=== PATIENT | female | born 1955 | race Caucasian/White ===

== ENCOUNTER 2017-12-16 10:46 | Inpatient (IN) | payer BC ==
[~2017-12-16] VITALS: Ht 157.5 cm; Wt 47.6 kg
[~2017-12-16 10:46] MED LIST: AZIT250T PO; PROM25TA14 PO
[2017-12-16] MEDS ORDERED: IBUPROFEN TABLET 200 MG TAB PO PRN (15:15)
[2017-12-16] MEDS ORDERED: ONDANSETRON 4 MG (ZOFRAN) ORAL DISSOLVE TAB PO PRN (15:15)
--- OUTSIDE RECORDS SUMMARY | 2017-12-16 17:24 | XMS REPORT | Continuity of Care Document ---
Author Author [facility] Organization [facility] Address Unknown Phone Unavailable Allergies Active Description Code Type Severity Reaction Onset Reported/Identified Relationship to Patient Clinical Status Yes Penicillins 476 Drug Allergy Unknown N/A Yes Sulfa (Sulfonamide Antibiotics) 491 Drug Allergy Unknown N/A Yes clindamycin [id number] Drug Allergy Unknown N/A 09/02/2015 Yes Penicillins [id number] Drug Allergy Unknown N/A 09/02/2015 Yes Sulfa (Sulfonamide Antibiotics) [id number] Drug Allergy Unknown N/A 2014 Yes Penicillins Miscellaneous Allergy N/A hives, itching 06/24/2017 Yes Sulfa Antibiotics Miscellaneous Allergy N/A hives, itching 06/24/2017 Medications Medication Packaging Start Date Stop Date Route Dosage Sig VERSED 0.5&Vial 06/28/2017 06/28/2017 Intravenous 1&mg PRN & ANCEF 2&Vial 06/28/2017 07/05/2017 Intravenous 2&gm PRN& LR 1000 ML 1&Bag 06/28/2017 06/28/2017 Intravenous 1000&mL C&0630 SUBLIMAZE 0.5&Ampule 06/28/2017 06/28/2017 Intravenous 50&mcg PRN& ZOFRAN 1&Vial 06/28/2017 07/28/2017 Intravenous 4&mg PRN& TORADOL 1&Vial 06/28/2017 07/03/2017 Intravenous 30&mg PRN & ANCEF 1&Vial 06/28/2017 06/29/2017 Intravenous 1&gm TID& 0800,1600,0000 NORMAL SALINE 0.3&Syringe 201607/28/2017 Intravenous 3&mL BID&0900,2100 NORMAL SALINE 0.6&Syringe 201607/28/2017 Intravenous 3&mL PRN& MILK OF MAGNESIA 1&Suspension 06/2807/28/2017 Oral 30&mL PRN& MORPHINE 1&Syringe 06/28/2017 07/05/2017 Intravenous 4&mg PRN& LR 1000 ML 1&Bag 06/28/2017 07/28/2017 Intravenous 1000&mL C&0846 DULCOLAX 1&Suppository 06/28/2017 07/28/2017 Rectal 10&mg PRN& ZOFRAN 1&Tablet 06/28/2017 07/28/2017 Oral 4&mg PRN& REGLAN 1&Tablet 06/28/2017 07/28/2017 Oral 10&mg PRN& ROBAXIN 1&Tablet 06/28/2017 07/28/2017 Oral 750&mg PRN& NORCO; LORTAB 2&Tablet 06/28/2017 07/05/2017 Oral 2&Tablet(s) PRN& COLACE 1&Capsule 06/28/2017 07/28/2017 Oral 100&mg BID& 0900,2100 BENADRYL 1&Capsule 06/28/2017 07/28/2017 Oral 25&mg PRN& BENADRYL 0.5&Vial 06/28/2017 07/28/2017 Intravenous 25&mg PRN& DULCOLAX 1&Tablet 06/28/2017 07/28/2017 Oral 5&mg PRN& TYLENOL; APAP 2&Tablet 06/28/2017 07/28/2017 Oral 650&mg PRN& REGLAN 1&Vial 06/28/2017 07/28/2017 Intravenous 10&mg PRN & ZOFRAN 1&Vial 06/28/2017 06/28/2017 Intravenous 4&mg PRN& DILAUDID 0.25&Vial 06/28/2017 06/28/2017 Intravenous 0.5&mg PRN& DOCUSATE SODIUM 11/28/2017 11/28/2017 BIDPRN ACETAMINOPHEN 11/28/2017 11/28/2017 Q4HPRN ACETAMINOPHEN 11/28/2017 11/28/2017 Q4HPRN ALUM-MAG HYDROXIDE-SIMETH 201711/28/2017 Q4HPRN MAGNESIUM HYDROXIDE 11/28/2017 11/28/2017 HSPRN Problems Date Dx Coded Attending Type Code Diagnosis Diagnosed By 09/02/2015 SAWYER HUDDLESTON APRN Ot K04.7 09/02/2015 SAWYER HUDDLESTON APRN Ot R11.2 09/02/2015 SAWYER HUDDLESTON APRN Ot R51 06/28/2017 Ethan JONES FLORENCIO Granados F17.200 Nicotine dependence, unspecified, uncomplicated 06/28/2017 Ethan JONES FLORENCIO Granados M19.90 Unspecified osteoarthritis, unspecified site 06/28/2017 Ethan JONES FLORENCIO Granados M48.06 Spinal stenosis, lumbar region 06/28/2017 Ethan JONES FLORENCIO Granados M51.26 Other intervertebral disc displacement, lumbar region 06/28/2017 Ethan JONES FLORENCIO Granados 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 Results Test Result Range CBC NO DIFF (HEMOGRAM) - 11/28/17 11:38 WBC - WHITE CELL COUNT 9.4 X10(3) 4.5- 11.0 RBC - RED CELL COUNT 4.17 X10(6) 4.20 -5.40 PLATELET COUNT 309 X10(3) 150- 450 HEMOGLOBIN 13.0 g/dl 12.0- 16.0 HEMATOCRIT 38.1 % 38.0- 47.0 MCV 91.4 fL 80.0- 96.0 MCH 31 pg 27-31 MCHC 34.1 % 32.0- 36.0 BMP - BASIC METABOLIC PANEL - 11/28/17 11:38 GLUCOSE 133 mg/dl 74- 106 BUN 10 mg/dl 7-18 CREATININE 0.66 mg/dl 0.55- 1.02 SODIUM (NA) 140 mEq/L 136- 146 POTASSIUM, BLOOD 3.5 mEq/L 3.5- 5.1 CHLORIDE 105 mEq/L 98- 107 CO2 (BICARBONATE) 27 mEq/L 21-32 CALCIUM 9.4 mg/dl 8.5- 10.1 eGFR mL/min >=59 HOLD SPECIMEN FOR BLOOD BANK - 11/28/17 11:38 HOLD SPECIMEN FOR BLOOD BANK ARC HOLD SPECIMEN FOR BLOOD BANK - 11/28/17 11:38 HOLD SPECIMEN FOR BLOOD BANK ARC TISSUE, HISTOLOGY - 11/28/17 12:20 TISSUE, HISTOLOGY REF LB REF LB CYTOLOGY EXAM - 11/28/17 12:20 CYTOLOGY EXAM REF LB REF LB CYTOLOGY EXAM - 11/28/17 12:20 CYTOLOGY EXAM REF LB REF LB CULTURE, BRONCHIAL WASHING T GRAM STAIN - 11/28/17 12:20 Bronchial Culture with Gram Stain Source: Bronchial Washing Collected: 11/28/17 12:20 CULTURE, ACID FAST T SMEAR - 11/28/17 12:20 AFB CULTURE WITH SMEAR Source: Bronchial Washing Collected: 11/28/17 12:20 CULTURE, FUNGAL T FUNGAL SMEAR - 11/28/17 12:20 CGFUS Source: Bronchial Washing Collected: 12:20 Encounters ACCT No. Visit Date/Time Discharge Status Pt. Type Provider Facility Loc./Unit Complaint [id number] 09/02/2015 15:00:00 09/02/2015 17:58:00 DIS Emergency SAWYER HUDDLESTON APRN [facility] ER [id number] 12/16/2017 17:14:00 ACT Inpatient INOCENCIO AMRCANO, MURRAY Kurtz [facility] IRF ACUTE ENCEPHALOPATHY [id number] 06/28/2017 06:18:00 06/28/2017 14:35:00 DIS Outpatient Ethan JONES R L3-4 micro disc w/ scope. Dx far lateral HNP [id number] 11/28/2017 11:15:00 11/28/2017 15:30:00 DIS Outpatient AUGIE JIMENEZ [facility] 120
--- NOTE | 2017-12-16 17:53 | PM&R Post Admission Assessment ---
Post Admission Physician Asses The preadmission screen agrees with the post admission assessment that the patient is a good candidate for inpatient rehabilitation. The patient will have a comprehensive program of inpatient rehabilitation with a goal of maximizing level of functional independence prior to discharge home with family. The patient will have PT/OT ninety minutes per day, each discipline, five days a week for gait, strengthening, conditioning, balance, ADLs, any patient/family/caregiver training as necessary. Speech therapy to do cognitive speech and Swallow assessment and treat as indicated. Rehabilitation nursing to assist with bowel, bladder, skin, wound care, medication administration, pain management. Figurine Maker to assist with discharge planning, community reentry. SCD's for DVT prophylaxis. She appears to be well motivated to participate in three hours of therapy a day. She should be able to tolerate three hours of therapy a day from a medical standpoint. She should benefit from the three hours of therapy a day. She has a reasonable discharge plan, reasonable discharge rehabilitation goals and a supportive family. She has various comorbidities that need to be closely monitored with medications and treatments adjusted on a daily basis as needed. These include: Lung Ca with mets HTN Hyponatremia Steroid taper Barriers to discharge for this patient who had been independent prior to this are for her to be modified independent to supervision for ADLs and mobility skills prior to discharge home with family so as to lessen the burden of the caregivers. Risks for this patient include: 1. Fall 2. Fracture 3. DVT 4. Pulmonary embolism 5. Wound infection 6. Skin breakdown 7. Contractures 8. Poorly controlled pain 9. Urinary retention 10. UTI 11. Respiratory infection 12. Aspiration 13. Seizures 14.Hyperglycemia due to steroids 15. Hyponatremia Estimated Length of Stay: 18days Prognosis: Rehab prognosis appears good for goal of discharge home with family modified independent to supervision for ADLs and mobility skills. [facility] CODE 02.9 Etiologic DX Acute encephalopathy MURRAY PAINTER MD Dec 16, 2017 17:53
[2017-12-16 18:00] VITALS: BP 157/99
[2017-12-16] MEDS ORDERED: INFLUENZA TRIvalent 2017-2018 0.5 ML/45 MCG SYR IM ONE (18:45)
[2017-12-16] MEDS: DEXAMETHASONE 4 MG TAB (DECADRON) PO SCH (20:11)
[2017-12-16] MEDS: MIRTAZAPINE 15 MG (REMERON) TAB PO SCH (20:11)
[2017-12-16] MEDS: POLYETHYLENE GLYCOL 17 GM (MIRALAX) PACK PO SCH ×2 (20:11→20:16)
[2017-12-16] MEDS: GABAPENTIN 100 MG (NEURONTIN) CAP PO SCH (20:11)
[2017-12-16] MEDS: HYDROcodone/APAP 7.5 MG/325 MG (LORTAB, LORCET PLUS) TABLET PO PRN (20:11)
[2017-12-16] MEDS: meTOprolol TARTRATE 25 MG (LOPRESSOR) TABLET PO SCH (20:12)
--- NOTE | 2017-12-16 20:55 | HISTORY AND PHYSICAL ---
DATE OF SERVICE: 12/16/2017 CHIEF COMPLAINT: Difficulty with walking. HISTORY OF PRESENT ILLNESS: The patient is a 62-year-old female, who had been independent until recently who was admitted to [facility], in [place] with acute encephalopathy secondary to lung cancer with mets to the brain. 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 The patient had a course of radiation therapy for the mets to the brain and chemotherapy for the lung cancer. Clinically, she is improving, but left with generalized weakness. She is now referred to inpatient rehabilitation unit [facility], so as to be closer to home. She lives in [place], [place] and her PCP is Reji Brownsas. Currently, she requires assistance for her ADLs and mobility skills. She presents to unit with her spouse.She is max assist for transfers She is max assist for gait with walker.She is min assist for eating and mod assist for lower body dressing She is dependent for lower body dressing PAST MEDICAL HISTORY: Recent diagnosis of metastatic small cell lung cancer, leukopenia, hyponatremia, hypoglycemia due to steroids, hypertension. PAST SURGICAL HISTORY: She has had bronchoscopy at [facility] to confirm the diagnosis. ALLERGIES: PENICILLIN, SULFA, CLINDAMYCIN. FAMILY HISTORY: Noncontributory. SOCIAL HISTORY: Essentially as per above. REVIEW OF SYSTEMS: Ten-point review of systems significant for generalized weakness. MEDICATIONS: Cozaar 50 mg p.o. daily, multivitamins with minerals 1 tablet p.o. daily, gabapentin 100 mg p.o. t.i.d., Lopressor 25 mg p.o. b.i.d., Remeron 15 mg p.o. at bedtime, MiraLAX 17 grams p.o. at bedtime, Decadron taper 4 mg p.o. b.i.d. for 7 days, then taper 4 mg p.o. daily, Xanax 0.25 mg p.o. q.6h. p.r.n. anxiety, Lortab 7.5 one tablet p.o. q.4h. p.r.n. moderate pain, ibuprofen 800 mg p.o. q.6h. p.r.n. mild pain, Zofran 4 mg p.o. q.6h. p.r.n. nausea and vomiting. PHYSICAL EXAMINATION: GENERAL: Significant for a female appearing stated age, lying in bed in no acute distress, appearing somewhat fatigued. They just had a 3-hour journey here from [place], [place]. VITAL SIGNS: Within normal limits. She is afebrile. HEENT: Vision, speech, hearing grossly intact. No oral lesion is noted. NECK: Supple without mass. HEART: Regular rhythm. CHEST: Clear. ABDOMEN: Soft, nontender, bowel sounds present. EXTREMITIES: No lymphedema. No calf tenderness. MUSCULOSKELETAL: The patient has functional active range of motion in all 4 extremities. NEUROLOGIC: She has generalized weakness. Sensation is grossly intact to touch. Cognition appears grossly intact.Strength Both hip ext 3+/5 Dorsiflexors 2/5 hips 3/5 Upper LIMB strength 3+/5 IMPRESSION: 1. 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 2. Hypertension, controlled with medication. 3. Depression, on medication. PLAN: The patient will have a comprehensive program of inpatient rehabilitation with goal of maximizing level of functional independence prior to discharge home with spouse and home health care. The patient will have PT, OT 90 minutes per day each discipline 5 days a week for 2 weeks with goal of maximizing level of functional dependence with plan as per post-admission physician evaluation. Please see that document speech therapy, do a cognitive swallow speech assessment treat as indicated. Rehabilitation nursing assist with bowel, bladder, skin care, medication administration, pain management. support services tech assist with discharge planning community reentry. We will ask Dr. Kessler to follow this patient along for hypertension and any other medical issues while on rehab unit for this out of town patient. Routine admission labs on Tuesday12/19/2017, therapy with cardiac and fall precautions. ESTIMATED LENGTH OF STAY: 18 days. PROGNOSIS: Rehab prognosis appears good for goal of discharging home with spouse, modified independent to supervision for ADLs and mobility skills. DIET: Regular. CODE STATUS: Full code. ADDITIONAL DIAGNOSES: 1. Hypoglycemia due to steroid usage. We will recheck labs. 2. Leukopenia. We will recheck labs. 3. Hyponatremia. We will recheck labs. Case was discussed with referring facility physician today. Job ID: [id number] DocumentID: [id number] Dictated Date: 12/16/2017 18:08:58 Brand Specialist Date: 12/16/2017 20:54:53 Dictated By: MURRAY PAINTER MD MTDD
[2017-12-17] MEDS: HYDROcodone/APAP 7.5 MG/325 MG (LORTAB, LORCET PLUS) TABLET PO PRN ×2 (00:29→21:12)
[2017-12-17 06:01] VITALS: BP 127/84
[2017-12-17] MEDS: DEXAMETHASONE 4 MG TAB (DECADRON) PO SCH ×2 (06:04→18:13)
[2017-12-17] MEDS: MULTIVIT W/MINERALS TAB (THERAGRAN M) PO SCH (06:04)
--- NOTE | 2017-12-17 09:15 | Occupational Therapy Eval ---
OT Evaluation-General/PLF Medical Diagnosis Admission Date Dec 16, 2017 at 17:14 Medical Diagnosis: lung cancer with mets to brain Onset Date: Nov 30, 2017 Therapy Diagnosis Therapy Diagnosis: impaired self care skills Height/Weight Height (Feet): 5 Height (Inches): 2.00 Weight (Pounds): 105 Weight (Ounces): 0.0 Precautions Precautions/Isolations: Standard Precautions Referral Physician: Dinesh Medical History Reviewed History: Yes Social History Home: Single Level Current Living Status: Spouse Entry Into Home: Stairs With Railing Steps Into Home: 1 ADL-Prior Level of Function ADL PLOF Comments Pt reports being independent prior to hospitalization. Did not use any assistive devices. DME/Equipment: Bath Chair, Bedside Commode, Tub/Shower Drive Self: Yes OT Current Status Subjective Pt in bed, agrees to treatment. Pt has no c/o pain. Pt tearful at times during session stating "I just don't know what I'm going to do." Mental Status/Objective Patient Orientation: Person, Place Attachments: Christy Catheter Current Glasses/Contacts: Yes Hearing Aids: No Dentures/Partials: Yes (upper dentures) Hand Dominance: Right Upper Extremity ROM Mildly decreased shoulder ROM. Remainder grossly WFL Upper Extremity Coordination Fair Upper Extremity Sensation Intact per pt report Upper Extremity Strength Grossly 3+/5 ADL-Treatment ADL-Current Pt supine to sit with minimal assistance. Pt sat EOB with CGA for balance during UE assessment. Stand pivot transfer to chair with moderate assistance and cues for safety. Pt sat in chair for ADL tasks. Pt washed face and brushed teeth with SBA. Pt has decreased coordination to open/close toothpaste, but is able to complete with increased time. Pt did not comb her hair at this time, spouse states he will be shaving her head later today. Sponge bath completed while seated. Pt able to wash upper body with SBA and increased time. Pt able to wash bilateral upper legs, but requires assist for lower legs and feet. Pt stood with assist x1 while another person was needed to wash buttocks. Don pullover shirt with minimal assistance to pull down in back. Pt doffed socks with minimal assistance, but requires total assist to don socks. Pt required assist to thread christy and bilateral LE into pants. Assist x2 to don pants, one to assist with standing and one to assist with pant hike. Pt fatigues with activity and requires rest breaks during session. Pt's spouse brought pt breakfast. Pt requires assist to cut food. Pt has some difficulty holding utensils, was provided with foam to build up utensils and was able to feed self with increased time. Pt sitting in chair with needs met and spouse present after session. Functional [place] Measure 0=Not Assessed/NA 4=Minimal Assistance 1=Total Assistance 5=Supervision or Setup 2=Maximal Assistance 6=Modified [place] 3=Moderate Assistance 7=Complete IndependenceIRFPAI Quality Coding Scale 6 Independent with activity with or without an assistive device 5 Patient requires set up or clean up by helper. Patient completes activity by themselves 4 Supervision or touching assist (CGA). [place] provide cues , steadying assist 3 The helper provides less than half the effort to complete the activity 2 The helper provides more than half the effort to complete the activity 1 Dependent. The helper does all the effort to complete an activity 7 Patient refused to complete or attempt activity 9 The patient did not perform the activity before the current illness or injury 88 Not attempted due to Medical conditions or safety concerns Eating (FIM): 4 Eating (QC): 4 Grooming (FIM): 5 Oral Hygiene (QC): 4 Bathing (FIM): 3 Shower/Bathe Self (QC): 3 Upper Body Dressing (FIM): 4 Upper Body Dressing (QC): 3 Lower Body Dressing (FIM): 1 Lower Body Dressing (QC): 1 On/Off Footwear (QC): 2 Shower Transfer (FIM): 0 Education OT Patient Education: Rehab process Teaching Recipient: Patient, Family Teaching Methods: Discussion Response to Teaching: Verbalize Understanding OT Short Term Goals Short Term Goals Time Frame: Dec 24, 2017 Grooming(FIM): 5 Bathing(FIM): 4 Upper Body Dressing(FIM): 5 Lower Body Dressing(FIM): 3 Toilet/Commode Transfer(FIM): 4 Additional Short Term Goals: 2-Verbalize Understanding, 3-ImproveStrength/Wen 1=Demonstrate adherence to instructed precautions during ADL tasks. 2=Patient will verbalize/demonstrate understanding of assistive devices/ modifications for ADL. 3=Patient will improve strength/tolerance for activity to enable patient to perform ADL's. OT Longterm Goals Card Placer Goals Time Frame: Jan 07, 2018 Eating (FIM): 6 Eating (QC): 6 Groomin Oral Hygiene (QC): 6 Bathing(FIM): 5 Shower/Bathe Self (QC): 4 Upper Body Dressing(FIM): 5 Upper Body Dressing (QC): 5 Lower Body Dressing(FIM): 5 Lower Body Dressing (QC): 5 On/Off Footwear (QC): 5 Toileting(FIM): 5 Toileting Hygiene (QC): 5 Toilet/Commode Transfer(FIM): 5 Toilet/Commode Transfer (QC): 5 Shower Transfer(FIM): 5 Additional Goals: 1-Demonstrate ADL Tasks, 2-Verbalize Understanding, 3- ImproveStrength/Wen 1=Demonstrate adherence to instructed precautions during ADL tasks. 2=Patient will verbalize/demonstrate understanding of assistive devices/ modifications for ADL. 3=Patient will improve strength/tolerance for activity to enable patient to perform ADL's. OT Education/Plan Problem List/Assessment Assessment: Decreased Activ Tolerance, Decreased UE Strength, Dependent Transfers, Impaired Coordination, Impaired Funct Balance, Impaired I ADL's, Impaired Self-Care Skills Pt to benefit from skilled OT intervention for ADL training, transfers, strengthening, adaptive equipment training as needed, and home safety education to increase level of independence and allow safe discharge plan. Discharge Recommendations Plan/Recommendations: Continue POC Treatment Plan/Plan of Care Treatment,Training & Education: Yes Patient would benefit from OT for education, treatment and training to promote independence in ADL's, mobility, safety and/or upper extremity function for ADL' s. Plan of Care: ADL Retraining, Functional Mobility, Group Exercise/Act as Ind, UE Funct Exercise/Act Treatment Duration: Jan 07, 2018 Frequency: At least 5 of 7 days/Wk (IRF) Estimated Hrs Per Day: 1.5 hours per day Agreement: Yes Rehab Potential: Fair Time/GCodes Start Time: 07:30 Stop Time: 09:00 Total Time Billed (hr/min): 90 Billed Treatment Time 1 visit, EVM(15minutes), ADLx5(75minutes) BERNA PATTERSON OT Dec 17, 2017 09:15
[2017-12-17] MEDS: GABAPENTIN 100 MG (NEURONTIN) CAP PO SCH ×3 (09:50→21:12)
[2017-12-17] MEDS: LOSARTAN 50 MG (COZAAR) TAB PO SCH (09:50)
[2017-12-17] MEDS: meTOprolol TARTRATE 25 MG (LOPRESSOR) TABLET PO SCH ×2 (09:50→21:12)
--- NOTE | 2017-12-17 13:30 | Physical Therapy Evaluation ---
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 Regaining (B) UE and LE strength. Has been unable to ambulate for the past 2-3 weeks. Reviewed History: Yes Social History Home: Single Level Current Living Status: Spouse Entry Into Home: Stairs With Railing PT Steps Into Home: 1 PT Steps Inside Home: 0 Prior/Core FIM Prior Level of Function Functional [place] Measure 0=Not Assessed/NA 4=Minimal Assistance 1=Total Assistance 5=Supervision or Setup 2=Maximal Assistance 6=Modified [place] 3=Moderate Assistance 7=Complete [place] Bed Mobility: 7 Transfers (B,C,W/C) (FIM): 7 Gait: 7 Locomotion: 7 Prior to the discovery of lung cancer, she was ambulating (I) and caring for herself without assistance. PT Evaluation-Current Subjective Pt reports (B) foot drop, (B) leg weakness, and poor stability when attempting to stand. Pt/Family Goals Return home Objective Patient Orientation: Person, Place, Time, Situation Problem Solving: Good Comprehension: 6 Expression: 6 Social Interaction: 6 ROM/Strength ROM Upper Extremities WFL ROM Lower Extremities WFL Strenght Lower Extremities (B) quadriceps MMT 3+/5. (B) anterior tibial MMT 2/5. (B) hip abduction MMT 3- /5. Neuromuscular (Tone, Coordination, Reflexes) (B) patellar tendon reflexes are intact with normal response. (B) achilles tendon reflexes are intact with normal response. Sensory Hand Dominance: Right Sensation Right Lower Extremit: Intact Sensation Left Lower Extremity: Intact Transfers Functional [place] Measure 0=Not Assessed/NA 4=Minimal Assistance 1=Total Assistance 5=Supervision or Setup 2=Maximal Assistance 6=Modified [place] 3=Moderate Assistance 7=Complete IndependenceIRFPAI Quality Coding Scale 6 Independent with activity with or without an assistive device 5 Patient requires set up or clean up by helper. Patient completes activity by themselves 4 Supervision or touching assist (CGA). [place] provide cues , steadying assist 3 The helper provides less than half the effort to complete the activity 2 The helper provides more than half the effort to complete the activity 1 Dependent. The helper does all the effort to complete an activity 7 Patient refused to complete or attempt activity 9 The patient did not perform the activity before the current illness or injury 88 Not attempted due to Medical conditions or safety concerns Transfers (B, C, W/C) (FIM): 2 Scootin Rollin Roll Left to Right (QC): 2 Supine to/from Sit: 2 Sit to/from Stand: 2 Sit to Lying (QC): 2 Lying to Sitting/Side of Bed(Q: 2 Sit to Stand (QC): 2 Chair/Hgj-tq-Yeqzc Xfer(QC): 2 Car Transfer (QC): 88 Pt is currently limited to ambulating up to 3 feet. The car transfer was not deemed safe due to poor stability and rapid fatigue. Gait Does the Patient Walk?: Yes Mode of Locomotion: Walk Anticipated Mode of Locomotion: Walk Gait (FIM): 1 Distance (FIM): 1=up to 49 ft Walk 10 feet (QC): 1 Walk 50 ft with 2 Turns(QC): 88 Walk 150 ft (QC): 88 Walking 10ft/uneven surface-QC: 88 Distance: 3ft forward, 3 ft back Gait Level of Assist: 2 Gait Persons Needed: 1 Gait Assistive Device: FWW Comments/Gait Description Due to anterior tibial weakness, she has trouble with retropulsion during gait. Wheelchair Training Does the Pt Use a Wheelchair?: No Stairs Stairs (FIM): 88 If not tested on admit;explain Pt is only able to ambulate 3 ft with maximum assist. She is barely able to clear the foot off the floor. She has not ambulated in 2-3 weeks, and we will progress to steps once she is more stable. Balance Sitting Static: Normal Sitting Dynamic: Normal Standing Static: Poor Standing Dynamic: Poor Picking up an Object (QC): 1 Special Test Comments Pt loses balance immediately when attempting to reach down. Required max assist during attempts. Assessment/Needs Pt has significant (B) LE weakness, poor balance, limited activity tolerance, and is trying to relearn how to ambulate with the affected muscle groups. Rehab Potential: Fair PT Short Term Goals Short Term Goals Time Frame: Dec 31, 2017 Transfers (B,C,W/C) (FIM): 4 Gait (FIM): 3 Distance (FIM): 3=150 ft Gait Level of Assist: 3 Gait Assistive Device: FWW Stairs (FIM): 1 # of Steps: 1 Stairs Level of Assist: 3 PT Ware Tester Goals Ware Tester Goals PT Ware Tester Goals Time Frame: Jan 21, 2018 Transfers (B,C,W/C) (FIM): 5 Sit to Lying (QC): 5 Lying-Sitting on Side/Bed(QC): 5 Sit to Stand (QC): 5 Rollin Roll Left to Right (QC): 5 Chair/Wmu-bm-Zncbx Xfer(QC): 5 Car Transfer (QC): 5 Does the Patient Walk: Yes Gait (FIM): 5 Gait distance (FIM): 3=150 ft Distance: 150ft Walk 10 feet (QC): 5 Walk 10ft-Uneven Surface(QC): 5 Walk 50ft with 2 Turns (QC): 5 Walk 150 ft (QC): 5 Gait Level of Assist: 5 Gait Assistive Device: FWW Does the Pt use WC or Scooter?: No Picking up an Object (QC): 5 PT Plan Problem List Problem List: Activity Tolerance, Functional Strength, Safety, Balance, Gait, Transfer, Bed Mobility Treatment/Plan Treatment Plan: Continue Plan of Care Treatment Plan: Bed Mobility, Concurrent Therapy, Functional Activity Wen, Functional Strength, Group Therapy, Gait, Safety, Therapeutic Exercise, Transfers Treatment Duration: Jan 21, 2018 Frequency: At least 5 of 7 days/Wk (IRF) Estimated Hrs Per Day: 1.5 hours per day Patient and/or Family Agrees t: Yes Time/GCodes Time In: 0930 Time Out: 1035 Total Billed Treatment Time: 65 Total Billed Treatment 1, evmodc 45, gt 20' G Codes Necessary: No DRAGAN PARSONS PT Dec 17, 2017 13:30
--- NOTE | 2017-12-17 15:34 | Physical Therapy Daily Note ---
PT Daily Note-Current Subjective Pt is up in the wheelchair with her family. She is ready for therapy. Mental Status Patient Orientation: Person, Place, Time, Situation Attachments: [place]ios Catheter Transfers Functional [place] Measure 0=Not Assessed/NA 4=Minimal Assistance 1=Total Assistance 5=Supervision or Setup 2=Maximal Assistance 6=Modified [place] 3=Moderate Assistance 7=Complete IndependenceIRFPAI Quality Coding Scale 6 Independent with activity with or without an assistive device 5 Patient requires set up or clean up by helper. Patient completes activity by themselves 4 Supervision or touching assist (CGA). [place] provide cues , steadying assist 3 The helper provides less than half the effort to complete the activity 2 The helper provides more than half the effort to complete the activity 1 Dependent. The helper does all the effort to complete an activity 7 Patient refused to complete or attempt activity 9 The patient did not perform the activity before the current illness or injury 88 Not attempted due to Medical conditions or safety concerns Transfers (B, C, W/C) (FIM): 2 Sit to/from Stand: 2 Sit to Stand (QC): 2 Weight Bearing Full Weight Bearing Full Weight Bearing Gait Training Does the Patient Walk?: Yes Gait (FIM): 1 Distance (FIM): 1=up to 49 ft Distance: 16ft 4x Walk 10 feet (QC): 2 Walking 10ft/uneven surface-QC: 2 Gait Level of Assist: 2 Gait Persons Needed: 1 Gait Assistive Device: FWW Performed ambulation in the parallel bars. 1st: down and back with forward ambulation down, and reverse back. 2nd: same. 3rd and 4th down and back with 180 degree turn at the ends. Exercises Performed standing toe tap 10x (B) in parallel bars, with pink step. Assessment Pt was much more confident and stable within the parallel bars. She only needed occasional cueing to advance the (R) UE on the bars. Good compensation with hip flex for foot drop. PT Short Term Goals Short Term Goals Time Frame: Dec 31, 2017 Transfers (B,C,W/C) (FIM): 4 Gait (FIM): 3 Distance (FIM): 3=150 ft Gait Level of Assist: 3 Gait Assistive Device: FWW Stairs (FIM): 1 # of Steps: 1 Stairs Level of Assist: 3 PT Green Building Materials Designer Goals Green Building Materials Designer Goals PT Assisted Goals Time Frame: Jan 21, 2018 Transfers (B,C,W/C) (FIM): 5 Sit to Lying (QC): 5 Lying-Sitting on Side/Bed(QC): 5 Sit to Stand (QC): 5 Rollin Roll Left to Right (QC): 5 Chair/Xkr-wk-Nbeqt Xfer(QC): 5 Car Transfer (QC): 5 Does the Patient Walk: Yes Gait (FIM): 5 Gait distance (FIM): 3=150 ft Distance: 150ft Walk 10 feet (QC): 5 Walk 10ft-Uneven Surface(QC): 5 Walk 50ft with 2 Turns (QC): 5 Walk 150 ft (QC): 5 Gait Level of Assist: 5 Gait Assistive Device: FWW Does the Pt use WC or Scooter?: No Picking up an Object (QC): 5 PT Plan Treatment/Plan Treatment Plan: Continue Plan of Care Treatment Plan: Bed Mobility, Concurrent Therapy, Functional Activity Wen, Functional Strength, Group Therapy, Gait, Safety, Therapeutic Exercise, Transfers Treatment Duration: Jan 21, 2018 Frequency: At least 5 of 7 days/Wk (IRF) Estimated Hrs Per Day: 1.5 hours per day Patient and/or Family Agrees t: Yes Time/GCodes Time In: 1500 Time Out: 1530 Total Billed Treatment Time: 30 Total Billed Treatment 1, gt 20, ex 10 DRAGAN PARSONS PT Dec 17, 2017 15:34
[2017-12-17 19:35] VITALS: BP 123/81
[2017-12-17] MEDS: MIRTAZAPINE 15 MG (REMERON) TAB PO SCH (21:12)
[2017-12-17] MEDS: ALPRAZolam 0.25 MG (XANAX) TAB PO PRN (21:12)
[2017-12-17] MEDS: POLYETHYLENE GLYCOL 17 GM (MIRALAX) PACK PO SCH (21:25)
[2017-12-18 04:15] VITALS: BP 132/72
[2017-12-18] MEDS: MULTIVIT W/MINERALS TAB (THERAGRAN M) PO SCH (06:10)
[2017-12-18] MEDS: DEXAMETHASONE 4 MG TAB (DECADRON) PO SCH ×2 (06:10→16:55)
[2017-12-18] MEDS: GABAPENTIN 100 MG (NEURONTIN) CAP PO SCH ×3 (09:25→20:04)
[2017-12-18] MEDS: meTOprolol TARTRATE 25 MG (LOPRESSOR) TABLET PO SCH ×2 (09:25→20:04)
[2017-12-18] MEDS: LOSARTAN 50 MG (COZAAR) TAB PO SCH (09:25)
[2017-12-18] MEDS: ALPRAZolam 0.25 MG (XANAX) TAB PO PRN (17:01)
[2017-12-18 18:39] VITALS: BP 129/88
[2017-12-18] MEDS: MIRTAZAPINE 15 MG (REMERON) TAB PO SCH (20:04)
[2017-12-18] MEDS: POLYETHYLENE GLYCOL 17 GM (MIRALAX) PACK PO SCH (20:05)
[2017-12-19] MEDS: HYDROcodone/APAP 7.5 MG/325 MG (LORTAB, LORCET PLUS) TABLET PO PRN (02:16)
[2017-12-19 05:36] VITALS: BP 143/79
[2017-12-19 06:37] LABS: BASOPHILS # (AUTO) 0.6 10^3/uL (0.0-0.1); BASOPHILS % (AUTO) 2 % (0-10); EOSINOPHILS % (AUTO) 0 % (0-10); HEMATOCRIT 27 % (35-52); HEMOGLOBIN 9.1 G/DL (11.5-16.0); MEAN CORPUSCULAR HEMOGLOBIN 32 PG (25-34); MEAN CORPUSCULAR HGB CONC 34 G/DL (32-36); MEAN CORPUSCULAR VOLUME 93 FL (80-99); MEAN PLATELET VOLUME 10.2 FL (7.4-10.4); PLATELET COUNT 137 10^3/uL (130-400); RED BLOOD COUNT 2.86 10^6/uL (4.35-5.85); RED CELL DISTRIBUTION WIDTH 12.3 % (10.0-14.5)
[2017-12-19] MEDS: DEXAMETHASONE 4 MG TAB (DECADRON) PO SCH ×2 (06:38→17:21)
[2017-12-19] MEDS: MULTIVIT W/MINERALS TAB (THERAGRAN M) PO SCH (06:38)
[2017-12-19 06:51] LABS: LYMPHOCYTES # (AUTO) 3.8 X 10^3 (1.0-4.0); LYMPHOCYTES % (AUTO) 10 % (12-44); MONOCYTES # (AUTO) 2.6 X 10^3 (0.0-1.0); MONOCYTES % (AUTO) 7 % (0-12); NEUTROPHILS # (AUTO) 30.1 X 10^3 (1.8-7.8); NEUTROPHILS % (AUTO) 81 % (42-75)
[2017-12-19 06:53] LABS: WHITE BLOOD COUNT 37.1 10^3/uL (4.3-11.0)
[2017-12-19 06:54] LABS: BAND NEUTROPHILS 16 %; BASOPHILS % (MANUAL) 0 %; EOSINOPHILS % (MANUAL) 0 %; LYMPHOCYTES % (MANUAL) 15 %; METAMYELOCYTES % 3 %; MONOCYTES % (MANUAL) 7 %; MYELOCYTES % 2 %; NEUTROPHILS % (MANUAL) 57 %; POLYCHROMASIA SLIGHT
[2017-12-19 07:14] LABS: ALANINE AMINOTRANSFERASE 67 U/L (0-55); ALBUMIN 3.4 GM/DL (3.2-4.5); ALKALINE PHOSPHATASE 131 U/L (40-136); BILIRUBIN,TOTAL 0.4 MG/DL (0.1-1.0); BUN/CREATININE RATIO 35; CALCIUM 8.6 MG/DL (8.5-10.1); CARBON DIOXIDE 25 MMOL/L (21-32); CHLORIDE 105 MMOL/L (98-107); CREATININE SERUM 0.55 MG/DL (0.60-1.30); GFR ESTIMATED > 60; GLUCOSE 109 MG/DL (70-105); POTASSIUM 3.4 MMOL/L (3.6-5.0); SODIUM 138 MMOL/L (135-145); TOTAL PROTEIN 5.4 GM/DL (6.4-8.2)
[2017-12-19] MEDS: GABAPENTIN 100 MG (NEURONTIN) CAP PO SCH ×3 (08:09→19:59)
[2017-12-19] MEDS: LOSARTAN 50 MG (COZAAR) TAB PO SCH (08:09)
[2017-12-19] MEDS: meTOprolol TARTRATE 25 MG (LOPRESSOR) TABLET PO SCH ×2 (08:09→19:59)
--- NOTE | 2017-12-19 08:35 | Consultation ---
History of Present Illness History of Present Illness Patient Consulted On(maine/time) 12/19/17 08:32 Time Seen by Provider: 08:30 History of Present Illness Patient came from [place] in [place]. Patient has acute encephalopathy. Patient has metastatic lung cancer small cell. Hyponatremia. Depression. Tobaccoism. Hypertension. Patient had a bronchoscopy. Originally patient had difficulty in speaking and right hand problem thought she had a stroke. Patient had a CAT scan of the head showing the tumor Allergies and Home Medications Allergies Coded Allergies: Penicillins (Verified Allergy, Unknown, 09/02/15) Sulfa (Sulfonamide Antibiotics) (Verified Allergy, Unknown, 09/02/15) clindamycin (Verified Allergy, Unknown, 09/02/15) Home Medications Azithromycin 250 Mg Tablet, 250 MG PO UD TAKE 2 TABLETS TODAY, THEN TAKE 1 TABLET DAILY FOR 4 MORE DAYS Prescribed by: SAWYER HUDDLESTON on 09/02/151744 Promethazine HCl 25 Mg Tablet, 25 MG PO TID PRN for NAUSEA/VOMITING Prescribed by: SAWYER HUDDLESTON on 09/02/151744 Patient Home Medication List Home Medication List Reviewed: Yes Past Znvfzrl-Jufhll-Jzfaaq Hx Patient Social History Alcohol Use: Denies Use Recreational Drug Use: No Smoking Status: Former Smoker Type Used: Cigarettes Former Smoker, Quit: Nov 28, 2017 Recent Foreign Travel: No Contact w/Someone Who Travel: No Recent Infectious Disease Expo: No Recent Hopitalizations: Yes Seasonal Allergies Seasonal Allergies: Yes Surgeries History of Surgeries: Yes Surgeries: Appendectomy Respiratory History of Respiratory Disorde: Yes Respiratory Disorders: Pneumonia Cardiovascular History of Cardiac Disorders: No Neurological History of Neurological Disord: No Reproductive System Hx Reproductive Disorders: No Sexually Transmitted Disease: No HIV/AIDS: No Genitourinary History of Genitourinary Disor: No Gastrointestinal History of Gastrointestinal Di: No Musculoskeletal History of Musculoskeletal Dis: No Endocrine History of Endocrine Disorders: No HEENT History of HEENT Disorders: No Cancer History of Cancer: Yes Cancer: Brain, Lung Did You Recieve Any Treatments: Yes Type of Tx Receive: Chemotherapy, Radiation Psychosocial History of Psychiatric Problem: No Behavioral Health Disorders: Anxiety, Depression Integumentary History of Skin or Integumenta: No Blood Transfusions History of Blood Disorders: No Review of Systems-General Constitutional: malaise, weakness, other (Inability to walk) EENTM: no symptoms reported Respiratory: no symptoms reported Cardiovascular: no symptoms reported Gastrointestinal: no symptoms reported Genitourinary: no symptoms reported Physical Exam-General Problems Physical Exam Vital Signs Vital Signs - First Documented 12/16/17 18:00 Temp 97.7 Pulse 80 Resp 18 B/P (MAP) 157/99 (118) Pulse Ox 97 O2 Delivery Room Air Capillary Refill : General Appearance: WD/WN, no apparent distress Eyes: Bilateral Eye Normal Inspection HEENT: normal ENT inspection Neck: full range of motion Respiratory: chest non-tender, no respiratory distress, no accessory muscle use Cardiovascular: regular rate, rhythm, no murmur Gastrointestinal: non tender, soft Assessment/Plan Assessment/Plan Admission Diagnosis/Plan Acute encephalopathy. Metastatic lung cancer. Hypertension. Tobaccoism. Clinical Quality Measures DVT/VTE Risk/Contraindication: Risk Factor Score Per Nursin RFS Level Per Nursing on Admit: 4+=Very High LUI MELGAR DO Dec 19, 2017 08:35
[2017-12-19] MEDS ORDERED: KCL 10 MEQ TAB (MICRO K) PO NR (09:30)
--- NOTE | 2017-12-19 11:57 | Physical Therapy Daily Note ---
PT Daily Note-Current Subjective Patient in recliner pre tx, agrees to PT, has no complaints of pain. Appearance Patient in recliner post tx with legs elevated, has nurse call, phone, tray, all needs met. Mental Status Patient Orientation: Person, Place, Situation Attachments: Palacios Catheter Transfers Functional [employer] Measure 0=Not Assessed/NA 4=Minimal Assistance 1=Total Assistance 5=Supervision or Setup 2=Maximal Assistance 6=Modified [employer] 3=Moderate Assistance 7=Complete IndependenceIRFPAI Quality Coding Scale 6 Independent with activity with or without an assistive device 5 Patient requires set up or clean up by helper. Patient completes activity by themselves 4 Supervision or touching assist (CGA). [place] provide cues , steadying assist 3 The helper provides less than half the effort to complete the activity 2 The helper provides more than half the effort to complete the activity 1 Dependent. The helper does all the effort to complete an activity 7 Patient refused to complete or attempt activity 9 The patient did not perform the activity before the current illness or injury 88 Not attempted due to Medical conditions or safety concerns Transfers (B, C, W/C) (FIM): 4 Sit to/from Stand: 4 Bed to/from Chair: 4 Min assist for sit to stand from lower surfaces, CGA for transfers, needs cues for hand placement and to turn completely before sitting. Weight Bearing Full Weight Bearing Full Weight Bearing Gait Training Gait (FIM): 1 Distance: 20', 15' Gait Level of Assist: 4 Gait Persons Needed: 1 Gait Assistive Device: FWW CGA, slow, unsteady ambulation but no LOB. Patient has foot drop on the right side and will need an AFO. Wheelchair Training Does the Pt Use a Wheelchair?: Yes Wheelchair (FIM): 2 Distance: 50'x2 Wheelchair Level of Assist: 4 Type of Wheelchair: Manual Patient needs min assist due to weakness and with turning. Exercises NuStep Minutes: 15 NuStep Workload: 4 Treatments transfers, ambulation, functional strengthening, wheelchair mobility Assessment Current Status: Fair Progress Improving ambulation. Patient fatigues very quickly and needs frequent rest breaks. PT Short Term Goals Short Term Goals Time Frame: Dec 31, 2017 Transfers (B,C,W/C) (FIM): 4 Gait (FIM): 3 Distance (FIM): 3=150 ft Gait Level of Assist: 3 Gait Assistive Device: FWW Stairs (FIM): 1 # of Steps: 1 Stairs Level of Assist: 3 PT Skilled Nursing Goals Home Health Aid Goals PT Home Health Aid Goals Time Frame: Jan 21, 2018 Transfers (B,C,W/C) (FIM): 5 Sit to Lying (QC): 5 Lying-Sitting on Side/Bed(QC): 5 Sit to Stand (QC): 5 Rollin Roll Left to Right (QC): 5 Chair/Rsm-zm-Syzci Xfer(QC): 5 Car Transfer (QC): 5 Does the Patient Walk: Yes Gait (FIM): 5 Gait distance (FIM): 3=150 ft Distance: 150ft Walk 10 feet (QC): 5 Walk 10ft-Uneven Surface(QC): 5 Walk 50ft with 2 Turns (QC): 5 Walk 150 ft (QC): 5 Gait Level of Assist: 5 Gait Assistive Device: FWW Does the Pt use WC or Scooter?: No Picking up an Object (QC): 5 PT Plan Problem List Problem List: Activity Tolerance, Functional Strength, Safety, Balance, Gait, Transfer, Bed Mobility Treatment/Plan Treatment Plan: Continue Plan of Care Treatment Plan: Bed Mobility, Concurrent Therapy, Functional Activity Wen, Functional Strength, Group Therapy, Gait, Safety, Therapeutic Exercise, Transfers Treatment Duration: Jan 21, 2018 Frequency: At least 5 of 7 days/Wk (IRF) Estimated Hrs Per Day: 1.5 hours per day Patient and/or Family Agrees t: Yes Safety Risks/Education Patient Education: Gait Training, Transfer Techniques, Correct Positioning, W/ C Management, Safety Issues Teaching Recipient: Patient Teaching Methods: Demonstration, Discussion Response to Teaching: Reinforcement Needed Time/GCodes Time In: 1100 Time Out: 1200 Total Billed Treatment Time: 60 Total Billed Treatment 1 visit EX 15' WCH 15' FA 15' GT 15' BIBI GARCIA PT Dec 19, 2017 11:57
--- NOTE | 2017-12-19 12:58 | Occupational Ther Daily Note ---
OT Current Status-Daily Note Subjective Pt seen in room, up in bed, agreeable to OT. No pain reported. Appearance Alert, cooperative Mental Status/Objective Functional [place] Measure 0=Not Assessed/NA 4=Minimal Assistance 1=Total Assistance 5=Supervision or Setup 2=Maximal Assistance 6=Modified [place] 3=Moderate Assistance 7=Complete [place] ADL-Treatment Pt was able to move supine to sit EOB with just a little help. She maintained sitting EOB throughout ADLs and did not lose her balance. Transferred from bed to recliner with min assist, FWW, bed raised up. Functional [place] Measure 0=Not Assessed/NA 4=Minimal Assistance 1=Total Assistance 5=Supervision or Setup 2=Maximal Assistance 6=Modified [place] 3=Moderate Assistance 7=Complete IndependenceIRFPAI Quality Coding Scale 6 Independent with activity with or without an assistive device 5 Patient requires set up or clean up by helper. Patient completes activity by themselves 4 Supervision or touching assist (CGA). [place] provide cues , steadying assist 3 The helper provides less than half the effort to complete the activity 2 The helper provides more than half the effort to complete the activity 1 Dependent. The helper does all the effort to complete an activity 7 Patient refused to complete or attempt activity 9 The patient did not perform the activity before the current illness or injury 88 Not attempted due to Medical conditions or safety concerns Grooming (FIM): 5 (Washed face and hands, brushed teeth with setup. Hair has been shaved off) Bathing (FIM): 5 (Pt did a sponge bath, sitting EOB. She was able to wash and dry all parts except back, crossing legs and leaning to side to wash her bottom. ) Upper Body (FIM): 4 (Min assist to get shirt off over head. pt educ modified technique that she was able to use to get shirt off. Donned without assistance) Lower Body Dressing (FIM): 4 (Min assist sit to stand to pull pants up. She was able to turn one hand loose at a time to pull pants up. Able to get socks on and slip shoes on but not get them up over her heels. FWW) Transfers (B, C, W/C) (FIM): 4 (Min assist sit to stand. Pt educ hand placement on walker.) Other Treatment Pt transferred with min assist to recliner, FWW. Pt educ on several different exercises with yellow theraband (low resistance) to work on muscle groups used in transfers and in ADLs. Pt given verbal, visual and occasionally physical cues to do them correctly. Pt did 10 reps, with fatigue. Pt left up in recliner , all needs met, present. Education OT Patient Education: Exercise program, Modified ADL techniques, Progress toward Goal/Update tx plan, Purpose of tx/functional activities, Safety issues, Transfer techniques, Use of adapted equipment Teaching Recipient: Patient Teaching Methods: Demonstration, Discussion Response to Teaching: Verbalize Understanding, Return Demonstration, Reinforcement Needed OT Short Term Goals Short Term Goals Time Frame: Dec 24, 2017 Grooming(FIM): 5 Bathing(FIM): 4 Upper Body Dressing(FIM): 5 Lower Body Dressing(FIM): 3 Transfers (B,C,W/C) (FIM): 4 Toilet/Commode Transfer(FIM): 4 Additional Short Term Goals: 2-Verbalize Understanding, 3-ImproveStrength/Wen 1=Demonstrate adherence to instructed precautions during ADL tasks. 2=Patient will verbalize/demonstrate understanding of assistive devices/ modifications for ADL. 3=Patient will improve strength/tolerance for activity to enable patient to perform ADL's. OT Sales & Service Associate Goals Sales & Service Associate Goals Time Frame: Jan 07, 2018 Eating (FIM): 6 Eating (QC): 6 Groomin Oral Hygiene (QC): 6 Bathing(FIM): 5 Shower/Bathe Self (QC): 4 Upper Body Dressing(FIM): 5 Upper Body Dressing (QC): 5 Lower Body Dressing(FIM): 5 Lower Body Dressing (QC): 5 On/Off Footwear (QC): 5 Toileting(FIM): 5 Toileting Hygiene (QC): 5 Toilet/Commode Transfer(FIM): 5 Toilet/Commode Transfer (QC): 5 Shower Transfer(FIM): 5 Additional Goals: 1-Demonstrate ADL Tasks, 2-Verbalize Understanding, 3- ImproveStrength/Wen 1=Demonstrate adherence to instructed precautions during ADL tasks. 2=Patient will verbalize/demonstrate understanding of assistive devices/ modifications for ADL. 3=Patient will improve strength/tolerance for activity to enable patient to perform ADL's. OT Education/Plan Problem List/Assessment Pt to benefit from skilled OT intervention for ADL training, transfers, strengthening, adaptive equipment training as needed, and home safety education to increase level of independence and allow safe discharge plan. Discharge Recommendations Plan/Recommendations: Continue POC Treatment Plan/Plan of Care Patient would benefit from OT for education, treatment and training to promote independence in ADL's, mobility, safety and/or upper extremity function for ADL' s. Plan of Care: ADL Retraining, Functional Mobility, Group Exercise/Act as Ind, UE Funct Exercise/Act Treatment Duration: Jan 07, 2018 Frequency: At least 5 of 7 days/Wk (IRF) Estimated Hrs Per Day: 1.5 hours per day Agreement: Yes Rehab Potential: Fair Time/GCodes Start Time: 09:30 Stop Time: 10:30 Total Time Billed (hr/min): 60 Billed Treatment Time visit, 50 minutes ADL, 10 minutes exercise RAQUEL STEVENS OT Dec 19, 2017 12:58
[2017-12-19] MEDS ORDERED: ALPR0.254 PO (13:36)
[2017-12-19] MEDS ORDERED: DOXE50CA3 PO (13:36)
[2017-12-19] MEDS ORDERED: CLOP75TA28 PO (13:36)
[2017-12-19] MEDS ORDERED: LOSA50TA36 PO (13:36)
[2017-12-19] MEDS ORDERED: NICO4GUM31 BC (13:36)
[2017-12-19] MEDS ORDERED: IBUP-30 PO (13:36)
[2017-12-19] MEDS ORDERED: NICO-533 TD (13:36)
[2017-12-19] MEDS ORDERED: FOLI-74 PO (13:36)
--- NOTE | 2017-12-19 15:07 | Therapy Group Daily Note ---
Therapy Daily Group Note Patient Education Topic Home Safety Exercises LE Seated Exercise, UE Exercise Other/Notes Pt maneuvered w/c to therapy gym with assist of for OT/PT group. Group consisted of introductions (name, place living, favorite word), socialization, seated UE/LE exercises, home safety education and home safety jeopardy. Pt was able to appropriately introduce self and actively listened to peers. Pt listened to education and was able to answer questions about home safety. Pt described ways that she would use safety techniques in her home. Pt was able to answer questions on home safety jeopardy quiz. After group, pt maneuvered w/ c to room with husbands assist. Call light/phone in reach. All needs met in room. Start Time: 13:00 Stop Time: 14:10 Total Billed Treatment Time: 70 Total Billed Treatment 1,GRP RIVAS TY PLASTIC SHEETS FINISHING SUPERVISOR Dec 19, 2017 15:07
[2017-12-19 16:16] VITALS: BP 127/85
[2017-12-19] MEDS ORDERED: LACTATED RINGERS 1,000 ML IV SCH (17:45)
[2017-12-19 19:00] LABS: BILIRUBIN,URINE NEGATIVE (NEGATIVE); CLARITY,URINE CLEAR; COLOR,URINE YELLOW; GLUCOSE, URINE (UA) NEGATIVE (NEGATIVE); KETONES,URINE NEGATIVE (NEGATIVE); LEUKOCYTE ESTERASE ,URINE 1+ (NEGATIVE); NITRITE,URINE NEGATIVE (NEGATIVE); PH,URINE 6 (5-9); PROTEIN,URINE NEGATIVE (NEGATIVE); UROBILINOGEN,URINE NORMAL (NORMAL)
[2017-12-19 19:14] LABS: BACTERIA,URINE FEW /HPF; RBC,URINE 0-2 /HPF; SQUAMOUS EPITHELIAL CELL,UR 0-2 /HPF; YEAST,URINE FEW /HPF
[2017-12-19] MEDS: MIRTAZAPINE 15 MG (REMERON) TAB PO SCH (19:58)
[2017-12-19] MEDS: POLYETHYLENE GLYCOL 17 GM (MIRALAX) PACK PO SCH (19:59)
[2017-12-19] MEDS: ALPRAZolam 0.25 MG (XANAX) TAB PO PRN (19:59)
--- NOTE | 2017-12-19 20:50 | PM & R (SOAP) Progress Note ---
Subjective Time Seen by Provider: 20:45 Subjective/Events-last exam Patient was seen in her room this evening Appreciate DR boo note and orders Discussed case with RN Patients WBC COUNT UP as well as Serum lactic acid U/A abnormal and Culture pending Patient without c/o dysuria.Patient is afebrile CXR pending as well Patient min asist for transfers Review of Systems Neurological: Weakness Objective Exam Last Set of Vital Signs Vital Signs Date Time Temp Pulse Resp B/P (MAP) Pulse Ox O2 Delivery O2 Flow Rate FiO2 12/19/17 16:16 98.8 80 18 127/85 (99) 99 Room Air Capillary Refill : I&O Intake and Output 12/19/17 00:00 Intake Total 1360 ml Output Total 1250 ml Balance 110 ml Intake Oral 1360 ml Output Urine Total 1250 ml # Bowel Movements 5 General: Alert, Oriented X3, Cooperative, No Acute Distress HEENT: Atraumatic, PERRLA, EOMI, Mucous Memb Moist/[place] Neck: Supple, No JVD Lungs: Clear to Auscultation Heart: Regular Rate Abdomen: Normal Bowel Sounds, Soft, No Tenderness Extremities: No Edema Neuro: Other (generalized weakness ) Results Lab Laboratory Tests 12/19/17 06:00: White Blood Count 37.1*H, Red Blood Count 2.86L, Hemoglobin 9.1L, Hematocrit 27L , Mean Corpuscular Volume 93, Mean Corpuscular Hemoglobin 32, Mean Corpuscular Hemoglobin Concent 34, Red Cell Distribution Width 12.3, Platelet Count 137, Mean Platelet Volume 10.2, Neutrophils (%) (Auto) 81H, Lymphocytes (%) (Auto) 10L, Monocytes (%) (Auto) 7, Eosinophils (%) (Auto) 0, Basophils (%) (Auto) 2, Neutrophils # (Auto) 30.1H, Lymphocytes # (Auto) 3.8, Monocytes # (Auto) 2.6H, Eosinophils # (Auto) 0.0, Basophils # (Auto) 0.6H, Neutrophils % (Manual) 57, Lymphocytes % (Manual) 15, Monocytes % (Manual) 7, Eosinophils % (Manual) 0, Basophils % (Manual) 0, Metamyelocytes % 3, Myelocytes % 2, Band Neutrophils 16 , Polychromasia SLIGHT, Sodium Level 138, Potassium Level 3.4L, Chloride Level 105, Carbon Dioxide Level 25, Anion Gap 8, Blood Urea Nitrogen 19H, Creatinine 0.55L, Estimat Glomerular Filtration Rate > 60, BUN/Creatinine Ratio 35, Glucose Level 109H, Calcium Level 8.6, Total Bilirubin 0.4, Aspartate Amino Transf (AST/SGOT) 20, Alanine Aminotransferase (ALT/SGPT) 67H, Alkaline Phosphatase 131, Total Protein 5.4L, Albumin 3.4 12/19/17 14:52: Lactic Acid Level 2.35*H 12/19/17 17:04: Lactic Acid Level 2.61*H 12/19/17 18:52: Urine Color YELLOW, Urine Clarity CLEAR, Urine pH 6, Urine Specific [place] 1.010L, Urine Protein NEGATIVE, Urine Glucose (UA) NEGATIVE, Urine Ketones NEGATIVE, Urine Nitrite NEGATIVE, Urine Bilirubin NEGATIVE, Urine Urobilinogen NORMAL, Urine Leukocyte Esterase 1+H, Urine RBC (Auto) 1+H, Urine RBC 0-2, Urine WBC 5-10H, Urine Squamous Epithelial Cells 0-2, Urine Crystals NONE, Urine Bacteria FEWH, Urine Casts NONE, Urine Mucus NEGATIVE, Urine Yeast FEWH, Urine Culture Indicated YES Assessment/Plan Assessment Lung ca with mets to brain s/p RT for brain tumor and Chemo for Lung CA Leukocytosis with abnormal U/A Culture pending HTN controlled Hyperglycemia due to steroids improved Mild hypokalemia replace as needed Hyponatremia noted at OSH resolved Plan Continue PT/OT Team Conference 12-21-17 F/U with DR mary shaffer leukocytosis and Urine Culture Continue IVFS Hypokalemia mild replace as needed Hyponatremia at OSH resolved trend as needed MURRAY PAINTER MD Dec 19, 2017 20:49
[2017-12-19 22:02] VITALS: BP 150/89
--- NOTE | 2017-12-19 22:58 | Diagnostic Imaging Report ---
Clinical indication: Patient with elevated WBC and lactic acid. Exam: Chest x-ray PA and lateral views. Comparisons: Chest x-ray dated 12/06/2017. Findings: Lungs/pleura: Lungs are clear. There is no pneumothorax. There is no pleural effusion. Mediastinum: Unremarkable. Pulmonary vasculature: Unremarkable. Heart: Unremarkable. Bones/extrathoracic soft tissue: There are hypertrophic spurs involving the thoracic spine. Impression: There is no radiographic evidence of acute cardiopulmonary process. Dictated by: Dictated on workstation # [id number]
[2017-12-20 00:49] LABS: HEMOGLOBIN 9.1 G/DL (11.5-16.0); MEAN PLATELET VOLUME 10.5 FL (7.4-10.4); RED BLOOD COUNT 2.89 10^6/uL (4.35-5.85); RED CELL DISTRIBUTION WIDTH 12.4 % (10.0-14.5)
[2017-12-20 00:51] LABS: WHITE BLOOD COUNT 33.3 10^3/uL (4.3-11.0)
[2017-12-20 01:17] LABS: BUN/CREATININE RATIO 38; CALCIUM 8.3 MG/DL (8.5-10.1); CARBON DIOXIDE 21 MMOL/L (21-32); CHLORIDE 104 MMOL/L (98-107); GFR ESTIMATED > 60; GLUCOSE 175 MG/DL (70-105); POTASSIUM 3.6 MMOL/L (3.6-5.0); SODIUM 139 MMOL/L (135-145)
[2017-12-20] MEDS: LOSARTAN 50 MG (COZAAR) TAB PO SCH (12:11)
[2017-12-20] MEDS: meTOprolol TARTRATE 25 MG (LOPRESSOR) TABLET PO SCH ×2 (12:12→20:19)
[2017-12-20] MEDS: GABAPENTIN 100 MG (NEURONTIN) CAP PO SCH ×3 (12:13→20:19)
[2017-12-20] MEDS: DEXAMETHASONE 4 MG TAB (DECADRON) PO SCH ×2 (12:32→17:15)
[2017-12-20] MEDS: MULTIVIT W/MINERALS TAB (THERAGRAN M) PO SCH (12:33)
[2017-12-20] MEDS ORDERED: NORM2DIS3 IV (13:19)
[2017-12-20] MEDS ORDERED: POLY17PO23 PO (13:19)
[2017-12-20] MEDS ORDERED: GABA-486 PO (13:19)
[2017-12-20] MEDS ORDERED: ONDA4TAB11 PO (13:19)
[2017-12-20] MEDS ORDERED: METO-333 PO (13:19)
[2017-12-20] MEDS ORDERED: [UNRECOGNIZED DRUG - REMARK] XX (13:19)
[2017-12-20] MEDS ORDERED: HYDR-34 PO (13:19)
[2017-12-20] MEDS ORDERED: MIRT15TA8 PO (13:19)
[2017-12-20] MEDS ORDERED: Multivitamins/Minerals Therap PO (13:19)
[2017-12-20] MEDS ORDERED: CATHETER FLUSH 10 ML SYR IV PRN (13:45)
--- NOTE | 2017-12-20 14:35 | PM & R (SOAP) Progress Note ---
Subjective Time Seen by Provider: 14:00 Subjective/Events-last exam Patient was seen in her room this afternoon Back from ICU after 24 hour interrupted stay due to leukocytosis and elevated serum lactic acid which are now improving Discussed case with Staff and Dr Kessler Patient missed some thearpy time due to above issues.Patient min assist for transfers Objective Exam Last Set of Vital Signs Vital Signs Date Time Temp Pulse Resp B/P (MAP) Pulse Ox O2 Delivery O2 Flow Rate FiO2 12/19/17 22:02 99.0 79 18 150/89 (109) 98 Room Air Capillary Refill : I&O Intake and Output 12/20/17 00:00 Intake Total 1350 ml Output Total 1575 ml Balance -225 ml Intake Oral 1350 ml Output Urine Total 1575 ml # Bowel Movements 1 General: Alert, Oriented X3, Cooperative, No Acute Distress HEENT: Atraumatic, PERRLA, EOMI, Mucous Memb Moist/[place]: Supple, No JVD Lungs: Clear to Auscultation Heart: Regular Rate Abdomen: Normal Bowel Sounds, Soft, No Tenderness Extremities: No Edema Neuro: Other (generalized weakness ) Results Lab Laboratory Tests 12/19/17 06:00: White Blood Count 37.1*H, Red Blood Count 2.86L, Hemoglobin 9.1L, Hematocrit 27L , Mean Corpuscular Volume 93, Mean Corpuscular Hemoglobin 32, Mean Corpuscular Hemoglobin Concent 34, Red Cell Distribution Width 12.3, Platelet Count 137, Mean Platelet Volume 10.2, Neutrophils (%) (Auto) 81H, Lymphocytes (%) (Auto) 10L, Monocytes (%) (Auto) 7, Eosinophils (%) (Auto) 0, Basophils (%) (Auto) 2, Neutrophils # (Auto) 30.1H, Lymphocytes # (Auto) 3.8, Monocytes # (Auto) 2.6H, Eosinophils # (Auto) 0.0, Basophils # (Auto) 0.6H, Neutrophils % (Manual) 57, Lymphocytes % (Manual) 15, Monocytes % (Manual) 7, Eosinophils % (Manual) 0, Basophils % (Manual) 0, Metamyelocytes % 3, Myelocytes % 2, Band Neutrophils 16 , Polychromasia SLIGHT, Sodium Level 138, Potassium Level 3.4L, Chloride Level 105, Carbon Dioxide Level 25, Anion Gap 8, Blood Urea Nitrogen 19H, Creatinine 0.55L, Estimat Glomerular Filtration Rate > 60, BUN/Creatinine Ratio 35, Glucose Level 109H, Calcium Level 8.6, Total Bilirubin 0.4, Aspartate Amino Transf (AST/SGOT) 20, Alanine Aminotransferase (ALT/SGPT) 67H, Alkaline Phosphatase 131, Total Protein 5.4L, Albumin 3.4 12/19/17 14:52: Lactic Acid Level 2.35*H 12/19/17 17:04: Lactic Acid Level 2.61*H 12/19/17 18:52: Urine Color YELLOW, Urine Clarity CLEAR, Urine pH 6, Urine Specific [place] 1.010L, Urine Protein NEGATIVE, Urine Glucose (UA) NEGATIVE, Urine Ketones NEGATIVE, Urine Nitrite NEGATIVE, Urine Bilirubin NEGATIVE, Urine Urobilinogen NORMAL, Urine Leukocyte Esterase 1+H, Urine RBC (Auto) 1+H, Urine RBC 0-2, Urine WBC 5-10H, Urine Squamous Epithelial Cells 0-2, Urine Crystals NONE, Urine Bacteria FEWH, Urine Casts NONE, Urine Mucus NEGATIVE, Urine Yeast FEWH, Urine Culture Indicated YES 12/19/17 21:30: Lactic Acid Level 2.44*H 12/19/17 23:20: Lactic Acid Level 3.53*H 12/20/17 00:25: White Blood Count 33.3*H, Red Blood Count 2.89L, Hemoglobin 9.1L, Hematocrit 27L , Mean Corpuscular Volume 94, Mean Corpuscular Hemoglobin 32, Mean Corpuscular Hemoglobin Concent 34, Red Cell Distribution Width 12.4, Platelet Count 164, Mean Platelet Volume 10.5H, Sodium Level 139, Potassium Level 3.6, Chloride Level 104, Carbon Dioxide Level 21, Anion Gap 14, Blood Urea Nitrogen 23H, Creatinine 0.60, Estimat Glomerular Filtration Rate > 60, BUN/Creatinine Ratio 38, Glucose Level 175H, Calcium Level 8.3L Microbiology 12/19/17 Urine Culture - Preliminary, Resulted Probable Enterococcus Species Assessment/Plan Assessment Lung ca with mets to brain s/p RT for brain tumor and Chemo for Lung CA Enterococcus UTI withLeukocytosis and elevated Serum lactic acid improving with Antibiotics HTN controlled Hyperglycemia due to steroids improved Mild hypokalemia replace as needed Hyponatremia noted at OSH resolved Plan resume PT/OT/antibiotics Team Conference tomorrow 12-21-17 Hyponatremia at OSH resolved trend as needed F/U with MURRAY Randhawa MD Dec 20, 2017 14:35
--- NOTE | 2017-12-20 15:09 | Individualized Plan of Care ---
Individualized Plan of Care Rehab Nursing IPOC Order Admission Date Dec 16, 2017 at 17:14 Current Orders Orders Admission-Acute Rehab Unit (12/16/17 14:56) Plant Director-Inpt Rehab (12/16/17 14:56) Rehab Nursing Orders-Ipoc (12/16/17 14:56) Physical Therapy Rehab Orders (12/16/17 14:56) Occupational Therapy Rehab Ord (12/16/17 14:56) Speech Therapy Rehab Orders (12/16/17 14:56) General/Regular (12/16/17 Dinner) Turn And Reposition Q2HR (12/16/17 14:56) Weekly Weight (Lbs) WEEK (12/16/17 14:56) Cbc With Automated Diff (12/19/17 06:00) Comprehensive Metabolic Panel (12/19/17 06:00) Consult Physician (12/16/17 15:01) Alprazolam Tablet (Xanax Tablet) (12/16/17 15:15) Dexamethasone Tablet (Decadron Tablet) (12/16/17 17:20) Gabapentin Capsule/Tablet (Neurontin Cap (12/16/17 21:00) Hydrocodone/Apap 7.5/325 Tab (Lortab 7. (12/16/17 15:15) Ibuprofen Tablet (Motrin Tablet) (12/16/17 15:15) Losartan Tablet (Cozaar Tablet) (12/17/17 09:00) Metoprolol Tartrate (Ir) Tab (Lopressor (12/16/17 21:00) Mirtazapine Tablet (Remeron Tablet) (12/16/17 21:00) Therapeutic Multivitamin Tab (Vitamins, (12/17/17 07:00) Ondansetron Oral Dissolve Tab (Zofran (12/16/17 15:15) Polyethylene Glycol Powder Pkt (Miralax (12/16/17 21:00) Pharmacy Communication (Pharmacy Communi (12/16/17 15:15) Ambulate TID (12/16/17 18:16) Sequential Compression Device 08,20 (12/16/17 18:16) Dvt/Vte Risk - Notifiy Physici 08 (12/16/17 18:16) Request Ot Evaluate & Treat (12/16/17 18:16) Influenza Trivalent [id number] (Afluria (12/16/17 18:45) Patient Visit (12/17/17 ) Pt Eval Moderate Complexity (12/17/17 ) Gait Training, Ea 15 Min (12/17/17 ) Exercise Therap, Ea 15 Min (12/17/17 ) Manual Differential (12/19/17 06:00) Potassium Chloride (Tablet) (Klor Con Ta (12/19/17 09:30) Consult Physician (12/19/17 09:28) Catheter(Urinary) Discontinue (12/19/17 10:39) Lactic Acid Analyzer (12/19/17 13:06) Dexamethasone Tablet (Decadron Tablet) (12/19/17 17:00) Patient Visit (12/19/17 ) Functional Activities, Ea 15 (12/19/17 ) Exercise Therap, Ea 15 Min (12/19/17 ) Gait Training, Ea 15 Min (12/19/17 ) Wheelchair Mgmt/Propulsn 15min (12/19/17 ) Patient Visit (12/19/17 ) Therapeutic, Group (12/19/17 ) Di Iv Start (Assessment) .on IV start (12/19/17 17:45) Lactated Ringers (Lr 1000 Ml Iv Solution (12/19/17 17:45) Blood Culture (12/19/17 17:45) Consult Physician (12/19/17 17:45) Ua Culture If Indicated (12/19/17 18:53) Chest Pa/Lat (2 View) (12/19/17 17:45) Lactic Acid Analyzer (12/19/17 21:00) Urine Culture (12/19/17 18:52) Cbc No Diff (12/19/17 23:58) Basic Metabolic Panel (12/19/17 23:58) Nursing Communication (Ord) (12/19/17 23:58) Cpoe Transfer Order Process (12/20/17 00:50) Transfer - Room Transfer (12/20/17 00:50) Sodium Chloride Flush (Catheter Flush Sy (12/20/17 14:00) Sodium Chloride Flush (Catheter Flush Sy (12/20/17 13:45) Cefepime Injection (Maxipime Injection) (12/20/17 21:00) Vancomycin Injection (Vancomycin Injecti (12/20/17 15:00) Vancomycin,Trough (12/21/17 14:00) Trough Order (Trough Order-Pharmacy Orde (12/21/17 14:00) Vancomycin,Trough (12/21/17 14:00) Rehab Nursing Orders: Diseage Management, Edu in Press Rel Techn, Hydration Management, Nutrition Management, Pain Management Other Nursing Orders: monitor for urinary retention and constipation PT IPOC Problem List: Activity Tolerance, Functional Strength, Safety, Balance, Gait, Transfer, Bed Mobility Treatment Plan: Continue Plan of Care Bed Mobility, Concurrent Therapy, Functional Activity Wen, Functional Strength , Group Therapy, Gait, Safety, Therapeutic Exercise, Transfers Treatment Duration: Jan 21, 2018 Frequency: At least 5 of 7 days/Wk (IRF) Estimated Hrs Per Day: 1.5 hours per day OT IPOC Problems: Decreased Activ Tolerance, Decreased UE Strength, Dependent Transfers , Impaired Coordination, Impaired Funct Balance, Impaired I ADL's, Impaired Self -Care Skills OT Treatment, Training and Edu: Yes OT Problems Pt to benefit from skilled OT intervention for ADL training, transfers, strengthening, adaptive equipment training as needed, and home safety education to increase level of independence and allow safe discharge plan. Plan of Care: ADL Retraining, Functional Mobility, Group Exercise/Act as Ind, UE Funct Exercise/Act Treatment Duration: Jan 07, 2018 Frequency: At least 5 of 7 days/Wk (IRF) Estimated Hrs Per Day: 1.[address] IPOC Speech Therapy Treatment Plan: Discontinue ST Treatment Duration: Dec 20, 2017 Frequency: 1 time per month Estimated Hrs Per Day: Other Plant Director/Case Mgmt Plant Director/Case Managemen: Discharge Planning, Patient/Family Counseling Physician IPOC Medical Issues being managed closely and that require the 24 hour availability of a physician: UTI with Leukocytosis and Elevated serum Lactic acid Patient placed on Antibiotics Medical Issues: Bowel/Bladder Function, DVT Prophylaxis, Falls Precautions, Fluid/Electrolyte/Nutrition Balance, Infection Protection, Pain Management, Other (List) (as per above) Brief Synthesis of Preadmission Screen, Post-Admission Evaluation, and Therapy Evaluations:62 yo female with recently diagnosed Lung Ca with mets to brain 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 referrred from OSH to here for ongoing therapie and care s/p Chemo and RT.Developed UTI with associated leukocytosis and elevated serum lastic acid rerquiring an interupted stay for treatment with antibiotics at the ICU Now returns for continuation of rehab process.Missed some therapies due to [place](Interrrupted stay).Has a supportive spouse Medical Prognosis: Short term good Anticipated Length of Stay: 01-07-2018 Rehab Goals Modified Independent to supervision for adls and mobility skills [facility] CODE 02.9 Etiologic DX acute encephalopathy Anticipated discharge destinat: Home with spouse and [facility] MURRAY PAINTER MD Dec 20, 2017 15:09
[2017-12-20] MEDS: VANCOMYCIN INJECTION 1,000 MG in NS (IVPB) 250 ML IV SCH (15:22)
[2017-12-20] MEDS: CATHETER FLUSH 10 ML SYR IV SCH ×2 (15:22→20:20)
--- NOTE | 2017-12-20 15:25 | Occupational Ther Daily Note ---
OT Current Status-Daily Note Subjective Pt seen in room, up in w/c, agreeable to OT. No pain mentioned except she reported some discomfort from multiple needle sticks in ICU. Appearance Alert, cooperative Mental Status/Objective Functional [place] Measure 0=Not Assessed/NA 4=Minimal Assistance 1=Total Assistance 5=Supervision or Setup 2=Maximal Assistance 6=Modified [place] 3=Moderate Assistance 7=Complete [place] ADL-Treatment Pt returned from interrupted stay in ICU and reported some fatigue from not sleeping well last night. No significant change in UE function and will continue same treatment plan and interventions. Pt wanted to shower and change clothes. Pt stated, "This is my best therapy today" after shower. Functional [place] Measure 0=Not Assessed/NA 4=Minimal Assistance 1=Total Assistance 5=Supervision or Setup 2=Maximal Assistance 6=Modified [place] 3=Moderate Assistance 7=Complete IndependenceIRFPAI Quality Coding Scale 6 Independent with activity with or without an assistive device 5 Patient requires set up or clean up by helper. Patient completes activity by themselves 4 Supervision or touching assist (CGA). [place] provide cues , steadying assist 3 The helper provides less than half the effort to complete the activity 2 The helper provides more than half the effort to complete the activity 1 Dependent. The helper does all the effort to complete an activity 7 Patient refused to complete or attempt activity 9 The patient did not perform the activity before the current illness or injury 88 Not attempted due to Medical conditions or safety concerns Grooming (FIM): 5 (Brushed teeth with setup at sink, w/c level. washed face and hands in shower.) Bathing (FIM): 5 (Pt was able to wash and dry all parts except back. Leaned side to side to wash bottom. Shower bench, grab bars, hand held shower. ) Bathing Location: L Arm, R Arm, L Upper Leg, R Upper Leg, L Lower Leg ( including foot), R Lower Leg (including foot), Chest, Abdomen, Buttocks, Perineal Area Upper Body (FIM): 5 (Doffed and donned shirt with setup) Lower Body Dressing (FIM): 4 (Pt was able to get pants into feet and pull them up to thighs. She stood with min assist, pulling up with grab bars, and helped pull pants up except for immediate back. ) Shower Transfer(FIM): 4 (Min assist transferring from w/c to shower bench and back, using grab bars. ) Discussed doing toilet transfers from w/c, using grab bars, instead of using BSC , if she is up. Pt said that she has done that and likes it better than BSC. Education OT Patient Education: Modified ADL techniques, Progress toward Goal/Update tx plan, Purpose of tx/functional activities, Safety issues, Transfer techniques, Use of adapted equipment Teaching Recipient: Patient Teaching Methods: Demonstration, Discussion Response to Teaching: Verbalize Understanding, Return Demonstration, Reinforcement Needed OT Short Term Goals Short Term Goals Time Frame: Dec 24, 2017 Grooming(FIM): 5 Bathing(FIM): 4 Upper Body Dressing(FIM): 5 Lower Body Dressing(FIM): 3 Transfers (B,C,W/C) (FIM): 4 Toilet/Commode Transfer(FIM): 4 Additional Short Term Goals: 2-Verbalize Understanding, 3-ImproveStrength/Wen 1=Demonstrate adherence to instructed precautions during ADL tasks. 2=Patient will verbalize/demonstrate understanding of assistive devices/ modifications for ADL. 3=Patient will improve strength/tolerance for activity to enable patient to perform ADL's. OT Residential Goals Controlled Area Checker Goals Time Frame: Jan 07, 2018 Eating (FIM): 6 Eating (QC): 6 Groomin Oral Hygiene (QC): 6 Bathing(FIM): 5 Shower/Bathe Self (QC): 4 Upper Body Dressing(FIM): 5 Upper Body Dressing (QC): 5 Lower Body Dressing(FIM): 5 Lower Body Dressing (QC): 5 On/Off Footwear (QC): 5 Toileting(FIM): 5 Toileting Hygiene (QC): 5 Toilet/Commode Transfer(FIM): 5 Toilet/Commode Transfer (QC): 5 Shower Transfer(FIM): 5 Additional Goals: 1-Demonstrate ADL Tasks, 2-Verbalize Understanding, 3- ImproveStrength/Wen 1=Demonstrate adherence to instructed precautions during ADL tasks. 2=Patient will verbalize/demonstrate understanding of assistive devices/ modifications for ADL. 3=Patient will improve strength/tolerance for activity to enable patient to perform ADL's. OT Education/Plan Problem List/Assessment Pt to benefit from skilled OT intervention for ADL training, transfers, strengthening, adaptive equipment training as needed, and home safety education to increase level of independence and allow safe discharge plan. Discharge Recommendations Plan/Recommendations: Continue POC Treatment Plan/Plan of Care Patient would benefit from OT for education, treatment and training to promote independence in ADL's, mobility, safety and/or upper extremity function for ADL' s. Plan of Care: ADL Retraining, Functional Mobility, Group Exercise/Act as Ind, UE Funct Exercise/Act Treatment Duration: Jan 07, 2018 Frequency: At least 5 of 7 days/Wk (IRF) Estimated Hrs Per Day: 1.5 hours per day Agreement: Yes Rehab Potential: Fair Time/GCodes Start Time: 14:25 Stop Time: 15:15 Total Time Billed (hr/min): 50 Billed Treatment Time visit, 50 minutes ADL RAQUEL STEVENS OT Dec 20, 2017 15:24
--- NOTE | 2017-12-20 15:47 | Physical Therapy Daily Note ---
PT Daily Note-Current Subjective Patient in wheelchair pre tx, agrees to PT, has no complaints of pain. Appearance Patient in recliner post tx with nurse call, in the room. Mental Status Patient Orientation: Normal For Age Transfers Functional [place] Measure 0=Not Assessed/NA 4=Minimal Assistance 1=Total Assistance 5=Supervision or Setup 2=Maximal Assistance 6=Modified [place] 3=Moderate Assistance 7=Complete IndependenceIRFPAI Quality Coding Scale 6 Independent with activity with or without an assistive device 5 Patient requires set up or clean up by helper. Patient completes activity by themselves 4 Supervision or touching assist (CGA). [place] provide cues , steadying assist 3 The helper provides less than half the effort to complete the activity 2 The helper provides more than half the effort to complete the activity 1 Dependent. The helper does all the effort to complete an activity 7 Patient refused to complete or attempt activity 9 The patient did not perform the activity before the current illness or injury 88 Not attempted due to Medical conditions or safety concerns Transfers (B, C, W/C) (FIM): 4 Sit to/from Stand: 4 Bed to/from Chair: 4 Min assist for sit to stand, needs cues for hand placement. Weight Bearing Full Weight Bearing Full Weight Bearing Gait Training Gait (FIM): 1 Distance: 20'x2 Gait Level of Assist: 4 Gait Persons Needed: 1 Gait Assistive Device: FWW CGA, slow but no LOB Exercises Seated Therapy Exercises: Hip flexion, Hip abd/add Seated Reps: 20 LAQ alternating for 5 min Treatments transfers, ambulation, functional strengthening Assessment Current Status: Fair Progress improving endurance and transfers PT Short Term Goals Short Term Goals Time Frame: Dec 31, 2017 Transfers (B,C,W/C) (FIM): 4 Gait (FIM): 3 Distance (FIM): 3=150 ft Gait Level of Assist: 3 Gait Assistive Device: FWW Wheelchair Distance: 50'x2 Stairs (FIM): 1 # of Steps: 1 Stairs Level of Assist: 3 PT Locate Technician Goals Mcc Goals PT Locate Technician Goals Time Frame: Jan 21, 2018 Transfers (B,C,W/C) (FIM): 5 Sit to Lying (QC): 5 Lying-Sitting on Side/Bed(QC): 5 Sit to Stand (QC): 5 Rollin Roll Left to Right (QC): 5 Chair/Ldp-rd-Wmgqi Xfer(QC): 5 Car Transfer (QC): 5 Does the Patient Walk: Yes Gait (FIM): 5 Gait distance (FIM): 3=150 ft Distance: 150ft Walk 10 feet (QC): 5 Walk 10ft-Uneven Surface(QC): 5 Walk 50ft with 2 Turns (QC): 5 Walk 150 ft (QC): 5 Gait Level of Assist: 5 Gait Assistive Device: FWW Does the Pt use WC or Scooter?: No Picking up an Object (QC): 5 PT Plan Problem List Problem List: Activity Tolerance, Functional Strength, Safety, Balance, Gait, Transfer, Bed Mobility Treatment/Plan Treatment Plan: Continue Plan of Care Treatment Plan: Bed Mobility, Concurrent Therapy, Functional Activity Wen, Functional Strength, Group Therapy, Gait, Safety, Therapeutic Exercise, Transfers Treatment Duration: Jan 21, 2018 Frequency: At least 5 of 7 days/Wk (IRF) Estimated Hrs Per Day: 1.5 hours per day Patient and/or Family Agrees t: Yes Safety Risks/Education Patient Education: Gait Training, Transfer Techniques, Correct Positioning, Safety Issues Teaching Recipient: Patient Teaching Methods: Demonstration, Discussion Response to Teaching: Reinforcement Needed Time/GCodes Time In: 1515 Time Out: 1545 Total Billed Treatment Time: 30 Total Billed Treatment 1 visit EX 10' GT 20' BIBI GARCIA PT Dec 20, 2017 15:47
[2017-12-20 18:18] VITALS: BP 132/84
[2017-12-20] MEDS: POLYETHYLENE GLYCOL 17 GM (MIRALAX) PACK PO SCH (19:46)
[2017-12-20 20:15] VITALS: BP 125/81
[2017-12-20] MEDS: MIRTAZAPINE 15 MG (REMERON) TAB PO SCH (20:19)
[2017-12-20] MEDS ORDERED: CEFEPIME IV SCH (21:00)
[2017-12-20] MEDS ORDERED: NS IV SCH (21:00)
[2017-12-21] MEDS: VANCOMYCIN INJECTION 1,000 MG in NS (IVPB) 250 ML IV SCH ×2 (03:52→15:09)
[2017-12-21 06:00] VITALS: BP 97/65
[2017-12-21] MEDS: CATHETER FLUSH 10 ML SYR IV SCH ×3 (06:12→20:48)
[2017-12-21] MEDS: DEXAMETHASONE 4 MG TAB (DECADRON) PO SCH ×2 (06:12→17:12)
[2017-12-21] MEDS: MULTIVIT W/MINERALS TAB (THERAGRAN M) PO SCH (06:12)
--- NOTE | 2017-12-21 07:23 | Pulmonary Progress Note ---
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
[2017-12-21 07:26] LABS: BASOPHILS # (AUTO) 0.4 10^3/uL (0.0-0.1); BASOPHILS % (AUTO) 1 % (0-10); EOSINOPHILS % (AUTO) 0 % (0-10); HEMATOCRIT 28 % (35-52); HEMOGLOBIN 9.5 G/DL (11.5-16.0); LYMPHOCYTES # (AUTO) 3.8 X 10^3 (1.0-4.0); LYMPHOCYTES % (AUTO) 11 % (12-44); MEAN CORPUSCULAR HEMOGLOBIN 32 PG (25-34); MEAN CORPUSCULAR HGB CONC 34 G/DL (32-36); MEAN CORPUSCULAR VOLUME 94 FL (80-99); MEAN PLATELET VOLUME 9.9 FL (7.4-10.4); MONOCYTES # (AUTO) 2.3 X 10^3 (0.0-1.0); MONOCYTES % (AUTO) 7 % (0-12); NEUTROPHILS # (AUTO) 26.9 X 10^3 (1.8-7.8); NEUTROPHILS % (AUTO) 81 % (42-75); PLATELET COUNT 259 10^3/uL (130-400); RED BLOOD COUNT 2.98 10^6/uL (4.35-5.85); RED CELL DISTRIBUTION WIDTH 12.6 % (10.0-14.5)
[2017-12-21 07:29] LABS: WHITE BLOOD COUNT 33.4 10^3/uL (4.3-11.0)
[2017-12-21] MEDS ORDERED: PHARMACY TO DOSE IV SCH (07:30)
[2017-12-21 07:45] LABS: ALANINE AMINOTRANSFERASE 60 U/L (0-55); ALBUMIN 3.9 GM/DL (3.2-4.5); ALKALINE PHOSPHATASE 117 U/L (40-136); BILIRUBIN,TOTAL 0.4 MG/DL (0.1-1.0); BUN/CREATININE RATIO 21; CALCIUM 9.1 MG/DL (8.5-10.1); CARBON DIOXIDE 27 MMOL/L (21-32); CHLORIDE 104 MMOL/L (98-107); CREATININE SERUM 0.58 MG/DL (0.60-1.30); GFR ESTIMATED > 60; GLUCOSE 119 MG/DL (70-105); POTASSIUM 3.5 MMOL/L (3.6-5.0); SODIUM 141 MMOL/L (135-145); TOTAL PROTEIN 6.4 GM/DL (6.4-8.2)
[2017-12-21 08:02] VITALS: BP 124/81
[2017-12-21] MEDS: meTOprolol TARTRATE 25 MG (LOPRESSOR) TABLET PO SCH ×2 (08:07→20:47)
[2017-12-21] MEDS: GABAPENTIN 100 MG (NEURONTIN) CAP PO SCH ×3 (08:07→20:47)
[2017-12-21] MEDS: LOSARTAN 50 MG (COZAAR) TAB PO SCH (08:08)
[2017-12-21] MEDS: HYDROcodone/APAP 7.5 MG/325 MG (LORTAB, LORCET PLUS) TABLET PO PRN ×2 (08:08→20:47)
--- NOTE | 2017-12-21 08:19 | Progress Note (SOAP) ---
Subjective Time Seen by Provider: 08:15 Subjective/Events-last exam Patient feeling better today. White blood cell count still elevated. Objective Exam Vital Signs Date Time Temp Pulse Resp B/P (MAP) Pulse Ox O2 Delivery O2 Flow Rate FiO2 12/21/17 08:02 82 124/81 (95) 12/21/17 06:00 98.1 74 16 97/65 (76) 99 Room Air 12/20/17 20:15 98.5 125/81 (96) 12/20/17 20:00 Room Air 12/20/17 18:18 98.2 77 14 132/84 (100) 99 Room Air I & O 12/21/17 07:00 Intake Total 1550 ml Output Total 3400 ml Balance -1850 ml Capillary Refill : General Appearance: No Apparent Distress, Thin Results Lab Laboratory Tests 12/21/17 07:16: White Blood Count 33.4*H, Red Blood Count 2.98L, Hemoglobin 9.5L, Hematocrit 28L , Mean Corpuscular Volume 94, Mean Corpuscular Hemoglobin 32, Mean Corpuscular Hemoglobin Concent 34, Red Cell Distribution Width 12.6, Platelet Count 259, Mean Platelet Volume 9.9, Neutrophils (%) (Auto) 81H, Lymphocytes (%) (Auto) 11L , Monocytes (%) (Auto) 7, Eosinophils (%) (Auto) 0, Basophils (%) (Auto) 1, Neutrophils # (Auto) 26.9H, Lymphocytes # (Auto) 3.8, Monocytes # (Auto) 2.3H, Eosinophils # (Auto) 0.0, Basophils # (Auto) 0.4H, Sodium Level 141, Potassium Level 3.5L, Chloride Level 104, Carbon Dioxide Level 27, Anion Gap 10, Blood Urea Nitrogen 12, Creatinine 0.58L, Estimat Glomerular Filtration Rate > 60, BUN /Creatinine Ratio 21, Glucose Level 119H, Calcium Level 9.1, Total Bilirubin 0.4 , Aspartate Amino Transf (AST/SGOT) 20, Alanine Aminotransferase (ALT/SGPT) 60H , Alkaline Phosphatase 117, B-Type Natriuretic Peptide 47.0, Total Protein 6.4, Albumin 3.9 Microbiology 12/19/17 Blood Culture - Preliminary, Resulted No growth 12/19/17 Urine Culture - Final, Complete Enterococcus faecalis Yeast species Assessment/Plan Assessment/Plan Assess & Plan/Chief Complaint Acute encephalopathy. Metastatic lung cancer. Hypertension. Tobaccoism.. . 12/21/17. Acute encephalopathy. Metastatic lung cancer. Hypertension. Tobaccoism. Patient feeling better today Clinical Quality Measures DVT/VTE Risk/Contraindication: Risk Factor Score Per Nursin RFS Level Per Nursing on Admit: 4+=Very High LUI MELGAR DO Dec 21, 2017 08:19
--- NOTE | 2017-12-21 09:28 | PM & R (SOAP) Progress Note ---
Subjective Time Seen by Provider: 07:55 Subjective/Events-last exam Patient was seen in her room this AM Patient min assist for transfers Tolerating antibiotic for UTI well.Current labs reviewed Review of Systems Neurological: Weakness Objective Exam Last Set of Vital Signs Vital Signs Date Time Temp Pulse Resp B/P (MAP) Pulse Ox O2 Delivery O2 Flow Rate FiO2 12/21/17 08:02 82 124/81 (95) 12/21/17 06:00 98.1 16 99 Room Air Capillary Refill : I&O Intake and Output 12/21/17 00:00 Intake Total 1250 ml Output Total 1600 ml Balance -350 ml Intake Oral 1000 ml IV Total 250 ml Output Urine Total 1600 ml General: Alert, Oriented X3, Cooperative, No Acute Distress HEENT: Atraumatic, PERRLA, EOMI, Mucous Memb Moist/[place] Neck: Supple, No JVD Lungs: Clear to Auscultation Heart: Regular Rate Abdomen: Normal Bowel Sounds, Soft, No Tenderness Extremities: No Edema Neuro: Other (generalized weakness ) Results Lab Laboratory Tests 12/19/17 06:00: White Blood Count 37.1*H, Red Blood Count 2.86L, Hemoglobin 9.1L, Hematocrit 27L , Mean Corpuscular Volume 93, Mean Corpuscular Hemoglobin 32, Mean Corpuscular Hemoglobin Concent 34, Red Cell Distribution Width 12.3, Platelet Count 137, Mean Platelet Volume 10.2, Neutrophils (%) (Auto) 81H, Lymphocytes (%) (Auto) 10L, Monocytes (%) (Auto) 7, Eosinophils (%) (Auto) 0, Basophils (%) (Auto) 2, Neutrophils # (Auto) 30.1H, Lymphocytes # (Auto) 3.8, Monocytes # (Auto) 2.6H, Eosinophils # (Auto) 0.0, Basophils # (Auto) 0.6H, Neutrophils % (Manual) 57, Lymphocytes % (Manual) 15, Monocytes % (Manual) 7, Eosinophils % (Manual) 0, Basophils % (Manual) 0, Metamyelocytes % 3, Myelocytes % 2, Band Neutrophils 16 , Polychromasia SLIGHT, Sodium Level 138, Potassium Level 3.4L, Chloride Level 105, Carbon Dioxide Level 25, Anion Gap 8, Blood Urea Nitrogen 19H, Creatinine 0.55L, Estimat Glomerular Filtration Rate > 60, BUN/Creatinine Ratio 35, Glucose Level 109H, Calcium Level 8.6, Total Bilirubin 0.4, Aspartate Amino Transf (AST/SGOT) 20, Alanine Aminotransferase (ALT/SGPT) 67H, Alkaline Phosphatase 131, Total Protein 5.4L, Albumin 3.4 12/19/17 14:52: Lactic Acid Level 2.35*H 12/19/17 17:04: Lactic Acid Level 2.61*H 12/19/17 18:52: Urine Color YELLOW, Urine Clarity CLEAR, Urine pH 6, Urine Specific [place] 1.010L, Urine Protein NEGATIVE, Urine Glucose (UA) NEGATIVE, Urine Ketones NEGATIVE, Urine Nitrite NEGATIVE, Urine Bilirubin NEGATIVE, Urine Urobilinogen NORMAL, Urine Leukocyte Esterase 1+H, Urine RBC (Auto) 1+H, Urine RBC 0-2, Urine WBC 5-10H, Urine Squamous Epithelial Cells 0-2, Urine Crystals NONE, Urine Bacteria FEWH, Urine Casts NONE, Urine Mucus NEGATIVE, Urine Yeast FEWH, Urine Culture Indicated YES 12/19/17 21:30: Lactic Acid Level 2.44*H 12/19/17 23:20: Lactic Acid Level 3.53*H 12/20/17 00:25: White Blood Count 33.3*H, Red Blood Count 2.89L, Hemoglobin 9.1L, Hematocrit 27L , Mean Corpuscular Volume 94, Mean Corpuscular Hemoglobin 32, Mean Corpuscular Hemoglobin Concent 34, Red Cell Distribution Width 12.4, Platelet Count 164, Mean Platelet Volume 10.5H, Sodium Level 139, Potassium Level 3.6, Chloride Level 104, Carbon Dioxide Level 21, Anion Gap 14, Blood Urea Nitrogen 23H, Creatinine 0.60, Estimat Glomerular Filtration Rate > 60, BUN/Creatinine Ratio 38, Glucose Level 175H, Calcium Level 8.3L 12/21/17 07:16: White Blood Count 33.4*H, Red Blood Count 2.98L, Hemoglobin 9.5L, Hematocrit 28L , Mean Corpuscular Volume 94, Mean Corpuscular Hemoglobin 32, Mean Corpuscular Hemoglobin Concent 34, Red Cell Distribution Width 12.6, Platelet Count 259, Mean Platelet Volume 9.9, Sodium Level 141, Potassium Level 3.5L, Chloride Level 104, Carbon Dioxide Level 27, Anion Gap 10, Blood Urea Nitrogen 12, Creatinine 0.58L, Estimat Glomerular Filtration Rate > 60, BUN/Creatinine Ratio 21, Glucose Level 119H, Calcium Level 9.1, Neutrophils (%) (Auto) 81H, Lymphocytes (%) (Auto) 11L, Monocytes (%) (Auto) 7, Eosinophils (%) (Auto) 0, Basophils (%) (Auto) 1, Neutrophils # (Auto) 26.9H, Lymphocytes # (Auto) 3.8, Monocytes # (Auto) 2.3H, Eosinophils # (Auto) 0.0, Basophils # (Auto) 0.4H, Total Bilirubin 0.4, Aspartate Amino Transf (AST/SGOT) 20, Alanine Aminotransferase (ALT/SGPT) 60H, Alkaline Phosphatase 117, B-Type Natriuretic Peptide 47.0, Total Protein 6.4, Albumin 3.9 Microbiology 12/19/17 Blood Culture - Preliminary, Resulted No growth 12/19/17 Urine Culture - Final, Complete Enterococcus faecalis Yeast species Assessment/Plan Assessment Lung ca with mets to brain s/p RT for brain tumor and Chemo for Lung CA Enterococcus UTI withLeukocytosis and elevated Serum lactic acid improving with Antibiotics HTN controlled Hyperglycemia due to steroids improved Mild hypokalemia replace as needed Hyponatremia noted at OSH resolved Plan Resumed PT/OT/antibiotics Hyponatremia at OSH resolved trend as needed F/U with Dr Kessler prn Team Conference later today-see report for full functional update and POC and MURRAY ESCOTO MD Dec 21, 2017 09:28
--- NOTE | 2017-12-21 09:58 | Physical Therapy Daily Note ---
PT Daily Note-Current Subjective Patient in wheelchair pre tx, agrees to PT, no complaints of pain. Appearance Patient in wheelchair post tx at bedside post tx with nurse call, phone, tray, all needs met. Mental Status Patient Orientation: Normal For Age Transfers Functional [place] Measure 0=Not Assessed/NA 4=Minimal Assistance 1=Total Assistance 5=Supervision or Setup 2=Maximal Assistance 6=Modified [place] 3=Moderate Assistance 7=Complete IndependenceIRFPAI Quality Coding Scale 6 Independent with activity with or without an assistive device 5 Patient requires set up or clean up by helper. Patient completes activity by themselves 4 Supervision or touching assist (CGA). [place] provide cues , steadying assist 3 The helper provides less than half the effort to complete the activity 2 The helper provides more than half the effort to complete the activity 1 Dependent. The helper does all the effort to complete an activity 7 Patient refused to complete or attempt activity 9 The patient did not perform the activity before the current illness or injury 88 Not attempted due to Medical conditions or safety concerns Transfers (B, C, W/C) (FIM): 4 Scootin Rollin Supine to/from Sit: 5 Sit to/from Stand: 4 (min assist from low surfaces) Bed to/from Chair: 4 occasional cues for hand placement and safety positioning Weight Bearing Full Weight Bearing Full Weight Bearing Gait Training Gait (FIM): 2 Distance: 100'x2 Gait Level of Assist: 4 Gait Persons Needed: 1 Gait Assistive Device: FWW left foot drop, needs AFO. Unsteady ambulation but no LOB. Stair Training Stair Training: Handrails/: uses walker Stairs (FIM): 1 #of Steps: 1 Stairs: Pattern: Step to Level of Assist: 4 (CGA) cues for foot placement Exercises Supine Ex: Quad Set, Glut sets, Heel Slides, Straight leg raise, Hip abd/add Supine Reps: 10 LAQ alternating for 5 min NuStep Minutes: 15 NuStep Workload: 5 Treatments bed mobility and transfer training, balance and endurance training, functional strengthening, stair training, gait training Assessment Current Status: Fair Progress improving strength and endurance PT Short Term Goals Short Term Goals Time Frame: Dec 31, 2017 Transfers (B,C,W/C) (FIM): 4 Gait (FIM): 3 Distance (FIM): 3=150 ft Gait Level of Assist: 3 Gait Assistive Device: FWW Wheelchair Distance: 50'x2 Stairs (FIM): 1 # of Steps: 1 Stairs Level of Assist: 3 PT Skilled Nursing Goals Skilled Nursing Goals PT Computer Networking Instructor Adjunct Goals Time Frame: Jan 21, 2018 Transfers (B,C,W/C) (FIM): 5 Sit to Lying (QC): 5 Lying-Sitting on Side/Bed(QC): 5 Sit to Stand (QC): 5 Rollin Roll Left to Right (QC): 5 Chair/Hlo-dh-Jiguk Xfer(QC): 5 Car Transfer (QC): 5 Does the Patient Walk: Yes Gait (FIM): 5 Gait distance (FIM): 3=150 ft Distance: 150ft Walk 10 feet (QC): 5 Walk 10ft-Uneven Surface(QC): 5 Walk 50ft with 2 Turns (QC): 5 Walk 150 ft (QC): 5 Gait Level of Assist: 5 Gait Assistive Device: FWW Does the Pt use WC or Scooter?: No Picking up an Object (QC): 5 PT Plan Problem List Problem List: Activity Tolerance, Functional Strength, Safety, Balance, Gait, Transfer, Bed Mobility, ROM Treatment/Plan Treatment Plan: Continue Plan of Care Treatment Plan: Bed Mobility, Concurrent Therapy, Functional Activity Wen, Functional Strength, Group Therapy, Gait, Safety, Therapeutic Exercise, Transfers Treatment Duration: Jan 21, 2018 Frequency: At least 5 of 7 days/Wk (IRF) Estimated Hrs Per Day: 1.5 hours per day Patient and/or Family Agrees t: Yes Safety Risks/Education Patient Education: Gait Training, Transfer Techniques, Steps, Correct Positioning, Safety Issues Teaching Recipient: Patient Teaching Methods: Demonstration, Discussion Response to Teaching: Reinforcement Needed Time/GCodes Time In: 900 Time Out: 1000 Total Billed Treatment Time: 60 Total Billed Treatment 1 visit GT 20' EX 40' BIBI GARCIA PT Dec 21, 2017 09:58
--- NOTE | 2017-12-21 10:10 | ST Cognitive Linguistic Eval ---
Speech Evaluation-General Medical Diagnosis lung cancer with mets to brain Onset Date: Nov 30, 2017 Therapy Diagnosis Therapy Diagnosis: Cognitive Linguistic Skills WNL Precautions Precautions/Isolations: Fall Prevention, Standard Precautions Referral Referring Physician: Dr. Tello Montiel Reason for Referral: Evaluation/Treatment Cognitive Evaluation Medical History Reviewed History: Yes Social History Current Living Status: Spouse Speech PLF-Current Status Prior Level of Function The patient denied prior challenges with speech, language, or cognition prior to or throughout her hospitalization. Subjective The patient was seated upright in wheelchair upon entrance. The patient greeted the clinician and was agreeable to participation in the cognitive evaluation. Language Eval: Auditory Comprehends Simple Yes/No Ques: Functional Indent/Objects Multiple [place]: Functional Ident/Pics in Multiple [place]: Functional Follows 1-Step Commands: Functional Follows Complex Directions: Functional Follows General Conversations: Functional Language Eval: Verbal Language Completes Spontaneous Greeting: Functional Produces Auto, Serial Info: Functional Imitates Simple Words/Phrases: Functional Word Finding: Functional Requests Basic Needs: Functional States Basic Personal Info: Functional Expresses Complex Ideas: Functional Cognitive Patient Orientation The patient was oriented to self, location, month, year, and day of week. Objective Cognitive Domain Attention: WNL Memory: WNL Problem Solving: Functional Objective Impression The patient demonstrated cognitive linguistic skills WNL. Communication/Social Cognition Comprehension: 6 Expression: 6 Social Interaction: 6 Problem Solvin Memory: 6 Speech Patient Assess Expression of Ideas/Wants: Expression (4) Understanding [place] Content: Understands (4) Brief Interview-Mental Status: Yes Repetition of Three Words: Three (3) Temporal Orientation: Year: Correct (3) Temporal Orientation: Month: Accurate within 5 days(2) Temporal Orientation: Day: Correct (1) Recall : Wear to say "Sock": Yes, no cue required (2) Recall : Color: Yes, no cue required (2) Recall : Bed: Yes, no cue required (2) Speech-Plan Treatment Plan Speech Therapy Treatment Plan: Discontinue ST Evaluation, only. Treatment Duration: Dec 20, 2017 Frequency: Modified Program (IRF) Estimated Hrs Per Day: Other Rehab Potential: Fair Safety Risks/Education Teaching Recipient: Patient Teaching Methods: Discussion Response to Teaching: Verbalize Understanding Education Topics Provided: Results, Recommendations, Plan of Care Time Speech Therapy Time In: 10:00 Speech Therapy Time Out: 10:10 Total Billed Time: 10 Billed Treatment Time 1, SPSNDCOMP DAVID,MONE ST Dec 21, 2017 10:10
--- NOTE | 2017-12-21 11:56 | Occupational Ther Daily Note ---
OT Current Status-Daily Note Subjective Pt seen in room, up in w/c, agreeable to OT. She wanted to shower and change clothes. No pain mentioned. Appearance Alert, cooperative Mental Status/Objective Functional [place] Measure 0=Not Assessed/NA 4=Minimal Assistance 1=Total Assistance 5=Supervision or Setup 2=Maximal Assistance 6=Modified [place] 3=Moderate Assistance 7=Complete [place] ADL-Treatment Pt propelled w/c to bathroom but had assist to position w/c at shower. CGA assist to transfer from w/c to shower bench and back, using grab bars. Pt completed dressing at w/c level, using grab bars by toilet. Pt reported that she has been using both the BSC and the toilet with grab bars for toileting. Pt propelled w/c to shower room, where OT demonstrated use of transfer tub bench to patient and then to her . Also discussed hand held shower. They have a w/c and FWW at home and will bring them in for sizing. Discussed possible pass this weekend, will do family training for toilet transfers if needed. Functional [place] Measure 0=Not Assessed/NA 4=Minimal Assistance 1=Total Assistance 5=Supervision or Setup 2=Maximal Assistance 6=Modified [place] 3=Moderate Assistance 7=Complete IndependenceIRFPAI Quality Coding Scale 6 Independent with activity with or without an assistive device 5 Patient requires set up or clean up by helper. Patient completes activity by themselves 4 Supervision or touching assist (CGA). [place] provide cues , steadying assist 3 The helper provides less than half the effort to complete the activity 2 The helper provides more than half the effort to complete the activity 1 Dependent. The helper does all the effort to complete an activity 7 Patient refused to complete or attempt activity 9 The patient did not perform the activity before the current illness or injury 88 Not attempted due to Medical conditions or safety concerns Grooming (FIM): 6 (Brushed teeth at sink, w/c level. Washed face and hands in shower) Bathing (FIM): 5 (setup. Washed and dried all parts, with setup. Retrieved towel from bar and turned water on/off. Shower bench, grab bars, hand held shower. ) Upper Body (FIM): 5 (pt doffed and donned shirts with stup. w/c level) Lower Body Dressing (FIM): 4 (CGA to stand, using grab bars for balance. A little help to get pants up over bottom. ABle to get socks and slip-on shoes off and on by herself, with skilled cues to be sure to lock w/c when doing activities, especially ones with leaning forward, for safety.) Shower Transfer(FIM): 4 (CGA, transferring to and from shower bench from w/c. Grab bars. ) Other Treatment Pt propelled w/c to gym with SBA, using feet and hands. In gym, she did 10 minutes bilat UE exercise with arm bike, set at 15W resistance. Pt took a couple brief recovery breaks and worked at a steady pace. To strengthen arms to help with transfers and standing during ADLs. Pt propelled w/c back to room and was transferred to recliner with CGA, FWW. pt left up in recliner, all needs met. Education OT Patient Education: Exercise program, Modified ADL techniques, Progress toward Goal/Update tx plan, Purpose of tx/functional activities, Safety issues, Use of adapted equipment Teaching Recipient: Patient, Significant Other Teaching Methods: Demonstration, Discussion Response to Teaching: Verbalize Understanding, Return Demonstration, Reinforcement Needed OT Short Term Goals Short Term Goals Time Frame: Dec 24, 2017 Grooming(FIM): 5 Bathing(FIM): 4 Upper Body Dressing(FIM): 5 Lower Body Dressing(FIM): 3 Transfers (B,C,W/C) (FIM): 4 Toilet/Commode Transfer(FIM): 4 Additional Short Term Goals: 2-Verbalize Understanding, 3-ImproveStrength/Wen 1=Demonstrate adherence to instructed precautions during ADL tasks. 2=Patient will verbalize/demonstrate understanding of assistive devices/ modifications for ADL. 3=Patient will improve strength/tolerance for activity to enable patient to perform ADL's. OT State Game Warden Goals Correction Goals Time Frame: Jan 07, 2018 Eating (FIM): 6 Eating (QC): 6 Groomin Oral Hygiene (QC): 6 Bathing(FIM): 5 Shower/Bathe Self (QC): 4 Upper Body Dressing(FIM): 5 Upper Body Dressing (QC): 5 Lower Body Dressing(FIM): 5 Lower Body Dressing (QC): 5 On/Off Footwear (QC): 5 Toileting(FIM): 5 Toileting Hygiene (QC): 5 Toilet/Commode Transfer(FIM): 5 Toilet/Commode Transfer (QC): 5 Shower Transfer(FIM): 5 Additional Goals: 1-Demonstrate ADL Tasks, 2-Verbalize Understanding, 3- ImproveStrength/Wen 1=Demonstrate adherence to instructed precautions during ADL tasks. 2=Patient will verbalize/demonstrate understanding of assistive devices/ modifications for ADL. 3=Patient will improve strength/tolerance for activity to enable patient to perform ADL's. OT Education/Plan Problem List/Assessment Pt to benefit from skilled OT intervention for ADL training, transfers, strengthening, adaptive equipment training as needed, and home safety education to increase level of independence and allow safe discharge plan. Discharge Recommendations Plan/Recommendations: Continue POC Treatment Plan/Plan of Care Patient would benefit from OT for education, treatment and training to promote independence in ADL's, mobility, safety and/or upper extremity function for ADL' s. Plan of Care: ADL Retraining, Functional Mobility, Group Exercise/Act as Ind, UE Funct Exercise/Act Treatment Duration: Jan 07, 2018 Frequency: At least 5 of 7 days/Wk (IRF) Estimated Hrs Per Day: 1.5 hours per day Agreement: Yes Rehab Potential: Fair Time/GCodes Start Time: 10:15 Stop Time: 11:45 Total Time Billed (hr/min): 90 Billed Treatment Time visit, 70 minutes ADL, 20 minutes exercise RAQUEL STEVENS OT Dec 21, 2017 11:56
--- NOTE | 2017-12-21 13:30 | Physical Therapy Daily Note ---
PT Daily Note-Current Subjective Patient in recliner pre tx, agrees to PT, has 7/10 pain in her feet. Appearance Patient in recliner post tx with nurse call, phone, tray, all needs met. Mental Status Patient Orientation: Normal For Age Transfers Functional [place] Measure 0=Not Assessed/NA 4=Minimal Assistance 1=Total Assistance 5=Supervision or Setup 2=Maximal Assistance 6=Modified [place] 3=Moderate Assistance 7=Complete IndependenceIRFPAI Quality Coding Scale 6 Independent with activity with or without an assistive device 5 Patient requires set up or clean up by helper. Patient completes activity by themselves 4 Supervision or touching assist (CGA). [place] provide cues , steadying assist 3 The helper provides less than half the effort to complete the activity 2 The helper provides more than half the effort to complete the activity 1 Dependent. The helper does all the effort to complete an activity 7 Patient refused to complete or attempt activity 9 The patient did not perform the activity before the current illness or injury 88 Not attempted due to Medical conditions or safety concerns Transfers (B, C, W/C) (FIM): 4 Sit to/from Stand: 4 Bed to/from Chair: 4 cues for hand placement Weight Bearing Full Weight Bearing Full Weight Bearing Gait Training Gait (FIM): 4 Distance: 150'x2 Gait Level of Assist: 4 Gait Persons Needed: 1 Gait Assistive Device: FWW right foot drop, is supposed to pickle solution maker some shoes for her to wear so she can start using an AFO Stair Training Stair Training: Handrails/: 2 handrails Stairs (FIM): 2 #of Steps: 4 Stairs: Pattern: Step to Level of Assist: 4 min assist, patient has to turn sideways and use one handrail when going down Treatments transfers, ambulation, stair training Assessment Current Status: Fair Progress improved stairs PT Short Term Goals Short Term Goals Time Frame: Dec 31, 2017 Transfers (B,C,W/C) (FIM): 4 Gait (FIM): 3 Distance (FIM): 3=150 ft Gait Level of Assist: 3 Gait Assistive Device: FWW Wheelchair Distance: 50'x2 Stairs (FIM): 1 # of Steps: 1 Stairs Level of Assist: 3 PT Coating And Baking Operator Goals Coating And Baking Operator Goals PT Retirement Goals Time Frame: Jan 21, 2018 Transfers (B,C,W/C) (FIM): 5 Sit to Lying (QC): 5 Lying-Sitting on Side/Bed(QC): 5 Sit to Stand (QC): 5 Rollin Roll Left to Right (QC): 5 Chair/Eca-ds-Wfbru Xfer(QC): 5 Car Transfer (QC): 5 Does the Patient Walk: Yes Gait (FIM): 5 Gait distance (FIM): 3=150 ft Distance: 150ft Walk 10 feet (QC): 5 Walk 10ft-Uneven Surface(QC): 5 Walk 50ft with 2 Turns (QC): 5 Walk 150 ft (QC): 5 Gait Level of Assist: 5 Gait Assistive Device: FWW Does the Pt use WC or Scooter?: No Picking up an Object (QC): 5 PT Plan Problem List Problem List: Activity Tolerance, Functional Strength, Safety, Balance, Gait, Transfer, Bed Mobility, ROM Treatment/Plan Treatment Plan: Continue Plan of Care Treatment Plan: Bed Mobility, Concurrent Therapy, Functional Activity Wen, Functional Strength, Group Therapy, Gait, Safety, Therapeutic Exercise, Transfers Treatment Duration: Jan 21, 2018 Frequency: At least 5 of 7 days/Wk (IRF) Estimated Hrs Per Day: 1.5 hours per day Patient and/or Family Agrees t: Yes Safety Risks/Education Patient Education: Gait Training, Transfer Techniques, Steps, Correct Positioning, Safety Issues Teaching Recipient: Patient Teaching Methods: Demonstration, Discussion Response to Teaching: Reinforcement Needed Time/GCodes Time In: 1300 Time Out: 1330 Total Billed Treatment Time: 30 Total Billed Treatment 1 visit GT 30' BIBI GARCIA PT Dec 21, 2017 13:30
[2017-12-21] MEDS ORDERED: TROUGH ORDER-PHARMACY XX NR (14:00)
[2017-12-21 18:01] VITALS: BP 140/87
[2017-12-21] MEDS: POLYETHYLENE GLYCOL 17 GM (MIRALAX) PACK PO SCH (19:49)
[2017-12-21] MEDS: MIRTAZAPINE 15 MG (REMERON) TAB PO SCH (20:47)
[2017-12-22] MEDS: VANCOMYCIN INJECTION 1,000 MG in NS (IVPB) 250 ML IV SCH (04:24)
[2017-12-22] MEDS: HYDROcodone/APAP 7.5 MG/325 MG (LORTAB, LORCET PLUS) TABLET PO PRN ×2 (04:24→20:04)
[2017-12-22 05:08] VITALS: BP 146/83
[2017-12-22 05:44] LABS: HEMOGLOBIN 8.3 G/DL (11.5-16.0); MEAN PLATELET VOLUME 10.2 FL (7.4-10.4); RED BLOOD COUNT 2.6 10^6/uL (4.35-5.85); RED CELL DISTRIBUTION WIDTH 12.5 % (10.0-14.5); WHITE BLOOD COUNT 20.5 10^3/uL (4.3-11.0)
[2017-12-22 06:10] LABS: BUN/CREATININE RATIO 27; CALCIUM 8.6 MG/DL (8.5-10.1); CARBON DIOXIDE 26 MMOL/L (21-32); CHLORIDE 104 MMOL/L (98-107); CREATININE SERUM 0.59 MG/DL (0.60-1.30); GFR ESTIMATED > 60; GLUCOSE 104 MG/DL (70-105); POTASSIUM 3.4 MMOL/L (3.6-5.0); SODIUM 140 MMOL/L (135-145)
[2017-12-22] MEDS: DEXAMETHASONE 4 MG TAB (DECADRON) PO SCH ×2 (06:30→18:08)
[2017-12-22] MEDS: CATHETER FLUSH 10 ML SYR IV SCH ×3 (06:30→21:39)
[2017-12-22] MEDS: MULTIVIT W/MINERALS TAB (THERAGRAN M) PO SCH (06:30)
--- NOTE | 2017-12-22 08:52 | Progress Note (SOAP) ---
Subjective Time Seen by Provider: 08:50 Subjective/Events-last exam Patient feeling better and doing better. White blood cell count 20,000 and improving coming down. Patient voicing no complaint Objective Exam Vital Signs Date Time Temp Pulse Resp B/P (MAP) Pulse Ox O2 Delivery O2 Flow Rate FiO2 12/22/17 05:08 99.0 78 16 146/83 (104) 98 Room Air 12/21/17 20:55 Room Air 12/21/17 18:01 97.7 81 16 140/87 (104) 100 Room Air 12/21/17 09:00 Room Air I & O 12/22/17 07:00 Intake Total 1950 ml Output Total 1100 ml Balance 850 ml Capillary Refill : General Appearance: No Apparent Distress, Thin Results Lab Laboratory Tests 12/21/17 14:15: Vancomycin Level Trough 16.0 12/22/17 05:05: White Blood Count 20.5H, Red Blood Count 2.60L, Hemoglobin 8.3L, Hematocrit 25L , Mean Corpuscular Volume 95, Mean Corpuscular Hemoglobin 32, Mean Corpuscular Hemoglobin Concent 34, Red Cell Distribution Width 12.5, Platelet Count 253, Mean Platelet Volume 10.2, Sodium Level 140, Potassium Level 3.4L, Chloride Level 104, Carbon Dioxide Level 26, Anion Gap 10, Blood Urea Nitrogen 16, Creatinine 0.59L, Estimat Glomerular Filtration Rate > 60, BUN/Creatinine Ratio 27, Glucose Level 104, Calcium Level 8.6 Microbiology 12/19/17 Blood Culture - Preliminary, Resulted No growth 12/19/17 Urine Culture - Final, Complete Enterococcus faecalis Yeast species Assessment/Plan Assessment/Plan Assess & Plan/Chief Complaint Acute encephalopathy. Metastatic lung cancer. Hypertension. Tobaccoism.. . 12/21/17. Acute encephalopathy. Metastatic lung cancer. Hypertension. Tobaccoism. Patient feeling better today. . 12/22/17. Acute encephalopathy. Metastatic colon cancer. Tobaccoism. White blood cell count coming down. Patient improved Clinical Quality Measures DVT/VTE Risk/Contraindication: Risk Factor Score Per Nursin RFS Level Per Nursing on Admit: 4+=Very High LUI MELGAR DO Dec 22, 2017 08:52
[2017-12-22] MEDS: meTOprolol TARTRATE 25 MG (LOPRESSOR) TABLET PO SCH ×2 (08:54→20:04)
[2017-12-22] MEDS: LOSARTAN 50 MG (COZAAR) TAB PO SCH (08:54)
[2017-12-22] MEDS ORDERED: KCL 10 MEQ TAB (MICRO K) PO ONE (08:54)
[2017-12-22] MEDS: GABAPENTIN 100 MG (NEURONTIN) CAP PO SCH ×3 (08:54→20:04)
--- NOTE | 2017-12-22 08:57 | Physical Therapy Daily Note ---
PT Daily Note-Current Subjective Patient in wheelchair pre tx, agrees to PT, has no complaints of pain. Appearance Patient in wheelchair in her room post tx, has nurse call, phone, tray, all needs met. Mental Status Patient Orientation: Normal For Age Transfers Functional [place] Measure 0=Not Assessed/NA 4=Minimal Assistance 1=Total Assistance 5=Supervision or Setup 2=Maximal Assistance 6=Modified [place] 3=Moderate Assistance 7=Complete IndependenceIRFPAI Quality Coding Scale 6 Independent with activity with or without an assistive device 5 Patient requires set up or clean up by helper. Patient completes activity by themselves 4 Supervision or touching assist (CGA). [place] provide cues , steadying assist 3 The helper provides less than half the effort to complete the activity 2 The helper provides more than half the effort to complete the activity 1 Dependent. The helper does all the effort to complete an activity 7 Patient refused to complete or attempt activity 9 The patient did not perform the activity before the current illness or injury 88 Not attempted due to Medical conditions or safety concerns Transfers (B, C, W/C) (FIM): 4 Sit to/from Stand: 4 Bed to/from Chair: 4 CGA for transfers, occasional cues for hand placement Weight Bearing Full Weight Bearing Full Weight Bearing Gait Training Gait (FIM): 4 Distance: 150'x2 Gait Level of Assist: 4 Gait Persons Needed: 1 Gait Assistive Device: FWW CGA, slow, no LOB or unsteadiness. Exercises Supine Ex: Bridging, Ankle pumps, Quad Set, Glut sets, Heel Slides, Straight leg raise, Hip abd/add Supine Reps: 20 Standing: Hip Abduction, Hamstring curls, Heel/toe raises, Marching, Mini squats Standing Reps: 20 LAQ alternating for 5 min with 2# ankle weights, supine hooklying hip abd with RTB x20, sit to stand 3 sets of 5 on a progressively lower surface Treatments bed mobility and transfers, ambulation, functional strengthening Assessment Current Status: Fair Progress improving balance, strength, and ambulation PT Short Term Goals Short Term Goals Time Frame: Dec 31, 2017 Transfers (B,C,W/C) (FIM): 4 Gait (FIM): 3 Distance (FIM): 3=150 ft Gait Level of Assist: 3 Gait Assistive Device: FWW Wheelchair Distance: 50'x2 Stairs (FIM): 1 # of Steps: 1 Stairs Level of Assist: 3 PT [employer] Goals [facility] Goals [facility] Goals Time Frame: Jan 21, 2018 Transfers (B,C,W/C) (FIM): 5 Sit to Lying (QC): 5 Lying-Sitting on Side/Bed(QC): 5 Sit to Stand (QC): 5 Rollin Roll Left to Right (QC): 5 Chair/Mzv-mp-Ispmb Xfer(QC): 5 Car Transfer (QC): 5 Does the Patient Walk: Yes Gait (FIM): 5 Gait distance (FIM): 3=150 ft Distance: 150ft Walk 10 feet (QC): 5 Walk 10ft-Uneven Surface(QC): 5 Walk 50ft with 2 Turns (QC): 5 Walk 150 ft (QC): 5 Gait Level of Assist: 5 Gait Assistive Device: FWW Does the Pt use WC or Scooter?: No Picking up an Object (QC): 5 PT Plan Problem List Problem List: Activity Tolerance, Functional Strength, Safety, Balance, Gait, Transfer, Bed Mobility Treatment/Plan Treatment Plan: Continue Plan of Care Treatment Plan: Bed Mobility, Concurrent Therapy, Functional Activity Wen, Functional Strength, Group Therapy, Gait, Safety, Therapeutic Exercise, Transfers Treatment Duration: Jan 21, 2018 Frequency: At least 5 of 7 days/Wk (IRF) Estimated Hrs Per Day: 1.5 hours per day Patient and/or Family Agrees t: Yes Safety Risks/Education Patient Education: Gait Training, Transfer Techniques, Correct Positioning, Safety Issues Teaching Recipient: Patient Teaching Methods: Demonstration, Discussion Response to Teaching: Reinforcement Needed Time/GCodes Time In: 800 Time Out: 900 Total Billed Treatment Time: 60 Total Billed Treatment 1 visit GT 15' EX 45' BIBI GARCIA PT Dec 22, 2017 08:57
[2017-12-22] MEDS: NITROFURANTOIN 100 MG (MACROBID) CAPSULE PO SCH ×2 (08:58→20:04)
[2017-12-22] MEDS ORDERED: KCL 10 MEQ TAB (MICRO K) PO NR (09:00)
--- NOTE | 2017-12-22 09:48 | PM & R (SOAP) Progress Note ---
Subjective Time Seen by Provider: 07:50 Subjective/Events-last exam Patient was seen in her room this AM Patients spouse here to visit Serum K low supplement ordered WBC count improving with RX for UTI Patient min assist for transfers Objective Exam Last Set of Vital Signs Vital Signs Date Time Temp Pulse Resp B/P (MAP) Pulse Ox O2 Delivery O2 Flow Rate FiO2 12/22/17 05:08 99.0 78 16 146/83 (104) 98 Room Air Capillary Refill : I&O Intake and Output 12/22/17 00:00 Intake Total 1900 ml Output Total 2250 ml Balance -350 ml Intake Oral 1650 ml IV Total 250 ml Output Urine Total 2250 ml # Voids 5 # Bowel Movements 1 General: Alert, Oriented X3, Cooperative, No Acute Distress HEENT: Atraumatic, PERRLA, EOMI, Mucous Memb Moist/[place] Neck: Supple, No JVD Lungs: Clear to Auscultation Heart: Regular Rate Abdomen: Normal Bowel Sounds, Soft, No Tenderness Extremities: No Edema Neuro: Other (generalized weakness ) Results Lab Laboratory Tests 12/19/17 14:52: Lactic Acid Level 2.35*H 12/19/17 17:04: Lactic Acid Level 2.61*H 12/19/17 18:52: Urine Color YELLOW, Urine Clarity CLEAR, Urine pH 6, Urine Specific [place] 1.010L, Urine Protein NEGATIVE, Urine Glucose (UA) NEGATIVE, Urine Ketones NEGATIVE, Urine Nitrite NEGATIVE, Urine Bilirubin NEGATIVE, Urine Urobilinogen NORMAL, Urine Leukocyte Esterase 1+H, Urine RBC (Auto) 1+H, Urine RBC 0-2, Urine WBC 5-10H, Urine Squamous Epithelial Cells 0-2, Urine Crystals NONE, Urine Bacteria FEWH, Urine Casts NONE, Urine Mucus NEGATIVE, Urine Yeast FEWH, Urine Culture Indicated YES 12/19/17 21:30: Lactic Acid Level 2.44*H 12/19/17 23:20: Lactic Acid Level 3.53*H 12/20/17 00:25: White Blood Count 33.3*H, Red Blood Count 2.89L, Hemoglobin 9.1L, Hematocrit 27L , Mean Corpuscular Volume 94, Mean Corpuscular Hemoglobin 32, Mean Corpuscular Hemoglobin Concent 34, Red Cell Distribution Width 12.4, Platelet Count 164, Mean Platelet Volume 10.5H, Sodium Level 139, Potassium Level 3.6, Chloride Level 104, Carbon Dioxide Level 21, Anion Gap 14, Blood Urea Nitrogen 23H, Creatinine 0.60, Estimat Glomerular Filtration Rate > 60, BUN/Creatinine Ratio 38, Glucose Level 175H, Calcium Level 8.3L 12/21/17 07:16: White Blood Count 33.4*H, Red Blood Count 2.98L, Hemoglobin 9.5L, Hematocrit 28L , Mean Corpuscular Volume 94, Mean Corpuscular Hemoglobin 32, Mean Corpuscular Hemoglobin Concent 34, Red Cell Distribution Width 12.6, Platelet Count 259, Mean Platelet Volume 9.9, Sodium Level 141, Potassium Level 3.5L, Chloride Level 104, Carbon Dioxide Level 27, Anion Gap 10, Blood Urea Nitrogen 12, Creatinine 0.58L, Estimat Glomerular Filtration Rate > 60, BUN/Creatinine Ratio 21, Glucose Level 119H, Calcium Level 9.1, Neutrophils (%) (Auto) 81H, Lymphocytes (%) (Auto) 11L, Monocytes (%) (Auto) 7, Eosinophils (%) (Auto) 0, Basophils (%) (Auto) 1, Neutrophils # (Auto) 26.9H, Lymphocytes # (Auto) 3.8, Monocytes # (Auto) 2.3H, Eosinophils # (Auto) 0.0, Basophils # (Auto) 0.4H, Total Bilirubin 0.4, Aspartate Amino Transf (AST/SGOT) 20, Alanine Aminotransferase (ALT/SGPT) 60H, Alkaline Phosphatase 117, B-Type Natriuretic Peptide 47.0, Total Protein 6.4, Albumin 3.9 12/21/17 14:15: Vancomycin Level Trough 16.0 12/22/17 05:05: White Blood Count 20.5H, Red Blood Count 2.60L, Hemoglobin 8.3L, Hematocrit 25L , Mean Corpuscular Volume 95, Mean Corpuscular Hemoglobin 32, Mean Corpuscular Hemoglobin Concent 34, Red Cell Distribution Width 12.5, Platelet Count 253, Mean Platelet Volume 10.2, Sodium Level 140, Potassium Level 3.4L, Chloride Level 104, Carbon Dioxide Level 26, Anion Gap 10, Blood Urea Nitrogen 16, Creatinine 0.59L, Estimat Glomerular Filtration Rate > 60, BUN/Creatinine Ratio 27, Glucose Level 104, Calcium Level 8.6 Microbiology 12/19/17 Blood Culture - Preliminary, Resulted No growth 3/5/18 Urine Culture - Final, Complete Enterococcus faecalis Yeast species Assessment/Plan Assessment 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
[2017-12-22 10:54] LABS: BILIRUBIN,URINE NEGATIVE (NEGATIVE); CLARITY,URINE CLEAR; COLOR,URINE YELLOW; GLUCOSE, URINE (UA) NEGATIVE (NEGATIVE); KETONES,URINE NEGATIVE (NEGATIVE); LEUKOCYTE ESTERASE ,URINE NEGATIVE (NEGATIVE); NITRITE,URINE NEGATIVE (NEGATIVE); PH,URINE 6.5 (5-9); PROTEIN,URINE NEGATIVE (NEGATIVE); UROBILINOGEN,URINE NORMAL (NORMAL)
[2017-12-22 11:14] LABS: BACTERIA,URINE NEGATIVE /HPF; HYALINE CASTS, URINE 0-2 /LPF; RBC,URINE RARE /HPF; SQUAMOUS EPITHELIAL CELL,UR >50 /HPF
--- NOTE | 2017-12-22 12:55 | Occupational Ther Daily Note ---
OT Current Status-Daily Note Subjective Pt seen in room, up in w/c, agreeable to OT. Pt reported being dizzy and " seeing lights". Nursing checked vitals and reassured her. Appearance Alert, cooperative Mental Status/Objective Functional [place] Measure 0=Not Assessed/NA 4=Minimal Assistance 1=Total Assistance 5=Supervision or Setup 2=Maximal Assistance 6=Modified [place] 3=Moderate Assistance 7=Complete [place] ADL-Treatment Pt has transferred to room with bathtub and transfer tub bench, which is what she will use when she goes home. present during tx. Pt and family education in transfers, and he was competent to assist her with standing during dressing. Pt propelled w/c to bathroom, then transferred CGA, FWW to edge of transfer tub bench. She was able to scoot into tub with SBA. Pt bathed with SBA (new environment) and was able to dress herself with setup and CGA for standing. She also brushed her teeth mod I at sink. Pt transferred with CGA, FWW to recliner for exercises. Completed 10 reps several different exercises with yellow theraband, with occasional cues to do them correctly. Does not have strength to get maximum stretch from gentle theraband. pt left up in recliner, present, all needs met. Functional [place] Measure 0=Not Assessed/NA 4=Minimal Assistance 1=Total Assistance 5=Supervision or Setup 2=Maximal Assistance 6=Modified [place] 3=Moderate Assistance 7=Complete IndependenceIRFPAI Quality Coding Scale 6 Independent with activity with or without an assistive device 5 Patient requires set up or clean up by helper. Patient completes activity by themselves 4 Supervision or touching assist (CGA). [place] provide cues , steadying assist 3 The helper provides less than half the effort to complete the activity 2 The helper provides more than half the effort to complete the activity 1 Dependent. The helper does all the effort to complete an activity 7 Patient refused to complete or attempt activity 9 The patient did not perform the activity before the current illness or injury 88 Not attempted due to Medical conditions or safety concerns Grooming (FIM): 6 Bathing (FIM): 5 (SBA, transfer tub bench, grab bars, hand held shower) Upper Body (FIM): 5 Lower Body Dressing (FIM): 4 (CGA when standing. ABle to get pants up over her hips herself. Socks on and off herself) Tub Transfer(FIM): 4 (CGA) Education OT Patient Education: Exercise program, Instructions to caregiver, Modified ADL techniques, Purpose of tx/functional activities, Safety issues, Transfer techniques, Use of adapted equipment Teaching Recipient: Patient, Significant Other Teaching Methods: Demonstration, Discussion Response to Teaching: Verbalize Understanding, Return Demonstration, Reinforcement Needed OT Short Term Goals Short Term Goals Time Frame: Dec 24, 2017 Grooming(FIM): 5 Bathing(FIM): 4 Upper Body Dressing(FIM): 5 Lower Body Dressing(FIM): 3 Transfers (B,C,W/C) (FIM): 4 Toilet/Commode Transfer(FIM): 4 Additional Short Term Goals: 2-Verbalize Understanding, 3-ImproveStrength/Wen 1=Demonstrate adherence to instructed precautions during ADL tasks. 2=Patient will verbalize/demonstrate understanding of assistive devices/ modifications for ADL. 3=Patient will improve strength/tolerance for activity to enable patient to perform ADL's. OT Longterm Goals Longterm Goals Time Frame: Jan 07, 2018 Eating (FIM): 6 Eating (QC): 6 Groomin Oral Hygiene (QC): 6 Bathing(FIM): 5 Shower/Bathe Self (QC): 4 Upper Body Dressing(FIM): 5 Upper Body Dressing (QC): 5 Lower Body Dressing(FIM): 5 Lower Body Dressing (QC): 5 On/Off Footwear (QC): 5 Toileting(FIM): 5 Toileting Hygiene (QC): 5 Toilet/Commode Transfer(FIM): 5 Toilet/Commode Transfer (QC): 5 Shower Transfer(FIM): 5 Additional Goals: 1-Demonstrate ADL Tasks, 2-Verbalize Understanding, 3- ImproveStrength/Wen 1=Demonstrate adherence to instructed precautions during ADL tasks. 2=Patient will verbalize/demonstrate understanding of assistive devices/ modifications for ADL. 3=Patient will improve strength/tolerance for activity to enable patient to perform ADL's. OT Education/Plan Problem List/Assessment Pt to benefit from skilled OT intervention for ADL training, transfers, strengthening, adaptive equipment training as needed, and home safety education to increase level of independence and allow safe discharge plan. Discharge Recommendations Plan/Recommendations: Continue POC Treatment Plan/Plan of Care Patient would benefit from OT for education, treatment and training to promote independence in ADL's, mobility, safety and/or upper extremity function for ADL' s. Plan of Care: ADL Retraining, Functional Mobility, Group Exercise/Act as Ind, UE Funct Exercise/Act Treatment Duration: Jan 07, 2018 Frequency: At least 5 of 7 days/Wk (IRF) Estimated Hrs Per Day: 1.5 hours per day Agreement: Yes Rehab Potential: Fair Time/GCodes Start Time: 09:30 Stop Time: 10:30 Total Time Billed (hr/min): 60 Billed Treatment Time visit, 50 minutes ADL, 10 minutes exercise RAQUEL STEVENS OT Dec 22, 2017 12:55
--- NOTE | 2017-12-22 15:38 | Physical Therapy Daily Note ---
PT Daily Note-Current Subjective Belinda states she likes the soft AFO when walking - it feels supportive. She states she's been working really hard to improve her LE strength. Pain Numeric Pain Scale: 0-No Pain Appearance [place] foot drop, L worse than R. Mental Status Patient Orientation: Normal For Age Transfers Functional [place] Measure 0=Not Assessed/NA 4=Minimal Assistance 1=Total Assistance 5=Supervision or Setup 2=Maximal Assistance 6=Modified [place] 3=Moderate Assistance 7=Complete IndependenceIRFPAI Quality Coding Scale 6 Independent with activity with or without an assistive device 5 Patient requires set up or clean up by helper. Patient completes activity by themselves 4 Supervision or touching assist (CGA). [place] provide cues , steadying assist 3 The helper provides less than half the effort to complete the activity 2 The helper provides more than half the effort to complete the activity 1 Dependent. The helper does all the effort to complete an activity 7 Patient refused to complete or attempt activity 9 The patient did not perform the activity before the current illness or injury 88 Not attempted due to Medical conditions or safety concerns Transfers (B, C, W/C) (FIM): 5 Sit to/from Stand: 5 Weight Bearing Full Weight Bearing Full Weight Bearing Gait Training Does the Patient Walk?: Yes Distance: 160 Gait Level of Assist: 4 (Contact guard with FWW) Gait Persons Needed: 1 Gait Assistive Device: FWW Exercises Seated Therapy Exercises: Ankle pumps, Long arc quads, Hip flexion Seated Reps: 15 Standing: Dynamic Reaching Ex, Retro gait, Sit to Stand, Weight shifts Treatments Toilet transfers and managed clothes with SBA Assessment Current Status: Good Progress Soft AFO will work temporarily during gait training. Awaiting shoes and AFO. Good safety judgement when using FWW for transfers/gait. PT Short Term Goals Short Term Goals Time Frame: Dec 31, 2017 Transfers (B,C,W/C) (FIM): 4 Gait (FIM): 3 Distance (FIM): 3=150 ft Gait Level of Assist: 3 Gait Assistive Device: FWW Wheelchair Distance: 50'x2 Stairs (FIM): 1 # of Steps: 1 Stairs Level of Assist: 3 PT [facility] Goals [facility] Goals PT [facility] Goals Time Frame: Jan 21, 2018 Transfers (B,C,W/C) (FIM): 5 Sit to Lying (QC): 5 Lying-Sitting on Side/Bed(QC): 5 Sit to Stand (QC): 5 Rollin Roll Left to Right (QC): 5 Chair/Jge-ig-[place]odtz Xfer(QC): 5 Car Transfer (QC): 5 Does the Patient Walk: Yes Gait (FIM): 5 Gait distance (FIM): 3=150 ft Distance: 150ft Walk 10 feet (QC): 5 Walk 10ft-Uneven Surface(QC): 5 Walk 50ft with 2 Turns (QC): 5 Walk 150 ft (QC): 5 Gait Level of Assist: 5 Gait Assistive Device: FWW Does the Pt use WC or Scooter?: No Picking up an Object (QC): 5 PT Plan Treatment/Plan Treatment Plan: Continue Plan of Care Treatment Plan: Bed Mobility, Concurrent Therapy, Functional Activity Wen, Functional Strength, Group Therapy, Gait, Safety, Therapeutic Exercise, Transfers Treatment Duration: Jan 21, 2018 Frequency: At least 5 of 7 days/Wk (IRF) Estimated Hrs Per Day: 1.5 hours per day Patient and/or Family Agrees t: Yes Time/GCodes Time In: 230 Time Out: 300 Total Billed Treatment Time: 30 Total Billed Treatment Visit, gt x 20, ex x 10 G Codes Necessary: MERE Long PT Dec 22, 2017 15:38
--- NOTE | 2017-12-22 16:22 | Occupational Ther Daily Note ---
OT Current Status-Daily Note Subjective Pt seen inroom, up in bed, agreeable to OT. No pain mentioned. Appearance Alert, cooperative Mental Status/Objective Functional [place] Measure 0=Not Assessed/NA 4=Minimal Assistance 1=Total Assistance 5=Supervision or Setup 2=Maximal Assistance 6=Modified [place] 3=Moderate Assistance 7=Complete [place] ADL-Treatment Pt needed just a little help to move to sitting EOB. Once up, she transferred CGA, FWW to w/c, with skilled cues for hand placement. She propelled her w/c to the bathroom and was able to transfer to tall toilet with grab bar, with CGA and pt education for hand placement for stand pivot transfer. She was also able to manage clothing and hygiene with CGA and got back into w/c with CGA. Functional [place] Measure 0=Not Assessed/NA 4=Minimal Assistance 1=Total Assistance 5=Supervision or Setup 2=Maximal Assistance 6=Modified [place] 3=Moderate Assistance 7=Complete IndependenceIRFPAI Quality Coding Scale 6 Independent with activity with or without an assistive device 5 Patient requires set up or clean up by helper. Patient completes activity by themselves 4 Supervision or touching assist (CGA). [place] provide cues , steadying assist 3 The helper provides less than half the effort to complete the activity 2 The helper provides more than half the effort to complete the activity 1 Dependent. The helper does all the effort to complete an activity 7 Patient refused to complete or attempt activity 9 The patient did not perform the activity before the current illness or injury 88 Not attempted due to Medical conditions or safety concerns Toileting (FIM): 4 (CGA, tall toilet, grab bar) Toilet/Commode Transfer (FIM): 4 (tall toilet, grab bars) Other Treatment Pt propelled herself to gym per w/c. She did 8 minutes bilat UE exercise on arm bike set at 20-15W resistance (increased resistance) and did not take any breaks. She was pleased with progress. To strengthen arms to help with transfers and ADLs. Pt propelled w/c back to her room and was left up in w/c, all needs met. Education OT Patient Education: Exercise program, Modified ADL techniques, Progress toward Goal/Update tx plan, Purpose of tx/functional activities, Transfer techniques Teaching Recipient: Patient Teaching Methods: Demonstration, Discussion Response to Teaching: Verbalize Understanding, Return Demonstration OT Short Term Goals Short Term Goals Time Frame: Dec 24, 2017 Grooming(FIM): 5 Bathing(FIM): 4 Upper Body Dressing(FIM): 5 Lower Body Dressing(FIM): 3 Transfers (B,C,W/C) (FIM): 4 Toilet/Commode Transfer(FIM): 4 Additional Short Term Goals: 2-Verbalize Understanding, 3-ImproveStrength/Wen 1=Demonstrate adherence to instructed precautions during ADL tasks. 2=Patient will verbalize/demonstrate understanding of assistive devices/ modifications for ADL. 3=Patient will improve strength/tolerance for activity to enable patient to perform ADL's. OT [employer] Goals [facility] Goals Time Frame: Jan 07, 2018 Eating (FIM): 6 Eating (QC): 6 Groomin Oral Hygiene (QC): 6 Bathing(FIM): 5 Shower/Bathe Self (QC): 4 Upper Body Dressing(FIM): 5 Upper Body Dressing (QC): 5 Lower Body Dressing(FIM): 5 Lower Body Dressing (QC): 5 On/Off Footwear (QC): 5 Toileting(FIM): 5 Toileting Hygiene (QC): 5 Toilet/Commode Transfer(FIM): 5 Toilet/Commode Transfer (QC): 5 Shower Transfer(FIM): 5 Additional Goals: 1-Demonstrate ADL Tasks, 2-Verbalize Understanding, 3- ImproveStrength/Wen 1=Demonstrate adherence to instructed precautions during ADL tasks. 2=Patient will verbalize/demonstrate understanding of assistive devices/ modifications for ADL. 3=Patient will improve strength/tolerance for activity to enable patient to perform ADL's. OT Education/Plan Problem List/Assessment Pt to benefit from skilled OT intervention for ADL training, transfers, strengthening, adaptive equipment training as needed, and home safety education to increase level of independence and allow safe discharge plan. Discharge Recommendations Plan/Recommendations: Continue POC Treatment Plan/Plan of Care Patient would benefit from OT for education, treatment and training to promote independence in ADL's, mobility, safety and/or upper extremity function for ADL' s. Plan of Care: ADL Retraining, Functional Mobility, Group Exercise/Act as Ind, UE Funct Exercise/Act Treatment Duration: Jan 07, 2018 Frequency: At least 5 of 7 days/Wk (IRF) Estimated Hrs Per Day: 1.5 hours per day Agreement: Yes Rehab Potential: Fair Time/GCodes Start Time: 13:00 Stop Time: 13:30 Total Time Billed (hr/min): 30 Billed Treatment Time visit, ADL 15 minutes, exercise 15 minutes RAQUEL STEVENS OT Dec 22, 2017 16:22
[2017-12-22 18:12] VITALS: BP 137/81
[2017-12-22] MEDS: POLYETHYLENE GLYCOL 17 GM (MIRALAX) PACK PO SCH (19:43)
[2017-12-22] MEDS: MIRTAZAPINE 15 MG (REMERON) TAB PO SCH (20:04)
[2017-12-23 05:01] VITALS: BP 130/80
[2017-12-23] MEDS: DEXAMETHASONE 4 MG TAB (DECADRON) PO SCH (06:19)
[2017-12-23] MEDS: MULTIVIT W/MINERALS TAB (THERAGRAN M) PO SCH (06:19)
[2017-12-23] MEDS: HYDROcodone/APAP 7.5 MG/325 MG (LORTAB, LORCET PLUS) TABLET PO PRN ×2 (06:19→21:30)
[2017-12-23] MEDS: CATHETER FLUSH 10 ML SYR IV SCH ×4 (06:24→21:57)
--- NOTE | 2017-12-23 08:17 | PM & R (SOAP) Progress Note ---
Subjective Time Seen by Provider: 07:55 Subjective/Events-last exam Patient was seen in her room this AM Progressing well with therapies patient SBA for transfers Patient requesting day pass with spouse for this weekend Objective Exam Last Set of Vital Signs Vital Signs Date Time Temp Pulse Resp B/P (MAP) Pulse Ox O2 Delivery O2 Flow Rate FiO2 12/23/17 05:01 97.7 74 16 130/80 (97) 99 Room Air Capillary Refill : I&O Intake and Output 12/23/17 00:00 Intake Total 1800 ml Output Total 650 ml Balance 1150 ml Intake Oral 1550 ml IV Total 250 ml Output Urine Total 650 ml # Voids 8 # Bowel Movements 2 General: Alert, Oriented X3, Cooperative, No Acute Distress HEENT: Atraumatic, PERRLA, EOMI, Mucous Memb Moist/[place] Neck: Supple, No JVD Lungs: Clear to Auscultation Heart: Regular Rate Abdomen: Normal Bowel Sounds, Soft, No Tenderness Extremities: No Edema Neuro: Other (generalized weakness ) Results Lab Laboratory Tests 12/21/17 07:16: White Blood Count 33.4*H, Red Blood Count 2.98L, Hemoglobin 9.5L, Hematocrit 28L , Mean Corpuscular Volume 94, Mean Corpuscular Hemoglobin 32, Mean Corpuscular Hemoglobin Concent 34, Red Cell Distribution Width 12.6, Platelet Count 259, Mean Platelet Volume 9.9, Neutrophils (%) (Auto) 81H, Lymphocytes (%) (Auto) 11L , Monocytes (%) (Auto) 7, Eosinophils (%) (Auto) 0, Basophils (%) (Auto) 1, Neutrophils # (Auto) 26.9H, Lymphocytes # (Auto) 3.8, Monocytes # (Auto) 2.3H, Eosinophils # (Auto) 0.0, Basophils # (Auto) 0.4H, Sodium Level 141, Potassium Level 3.5L, Chloride Level 104, Carbon Dioxide Level 27, Anion Gap 10, Blood Urea Nitrogen 12, Creatinine 0.58L, Estimat Glomerular Filtration Rate > 60, BUN /Creatinine Ratio 21, Glucose Level 119H, Calcium Level 9.1, Total Bilirubin 0.4 , Aspartate Amino Transf (AST/SGOT) 20, Alanine Aminotransferase (ALT/SGPT) 60H , Alkaline Phosphatase 117, B-Type Natriuretic Peptide 47.0, Total Protein 6.4, Albumin 3.9 12/21/17 14:15: Vancomycin Level Trough 16.0 12/22/17 05:05: White Blood Count 20.5H, Red Blood Count 2.60L, Hemoglobin 8.3L, Hematocrit 25L , Mean Corpuscular Volume 95, Mean Corpuscular Hemoglobin 32, Mean Corpuscular Hemoglobin Concent 34, Red Cell Distribution Width 12.5, Platelet Count 253, Mean Platelet Volume 10.2, Sodium Level 140, Potassium Level 3.4L, Chloride Level 104, Carbon Dioxide Level 26, Anion Gap 10, Blood Urea Nitrogen 16, Creatinine 0.59L, Estimat Glomerular Filtration Rate > 60, BUN/Creatinine Ratio 27, Glucose Level 104, Calcium Level 8.6 12/22/17 09:21: Urine Color YELLOW, Urine Clarity CLEAR, Urine pH 6.5, Urine Specific [place] 1.010L, Urine Protein NEGATIVE, Urine Glucose (UA) NEGATIVE, Urine Ketones NEGATIVE, Urine Nitrite NEGATIVE, Urine Bilirubin NEGATIVE, Urine Urobilinogen NORMAL, Urine Leukocyte Esterase NEGATIVE, Urine RBC (Auto) NEGATIVE, Urine RBC RARE, Urine WBC 2-5, Urine Squamous Epithelial Cells >50H, Urine Renal Epithelial Cells NONE, Urine Crystals NONE, Urine Bacteria NEGATIVE, Urine Casts PRESENT, Urine Hyaline Casts 0-2H, Urine Mucus SMALLH, Urine Culture Indicated NO Microbiology 12/19/17 Blood Culture - Preliminary, Resulted No growth 12/19/17 Urine Culture - Final, Complete Enterococcus faecalis Yeast species Assessment/Plan Assessment Lung ca with mets to brain s/p RT for brain tumor and Chemo for Lung CA Enterococcus UTI withLeukocytosis and elevated Serum lactic acid improving with Antibiotics HTN controlled Hyperglycemia due to steroids improved Mild hypokalemia replacement ordered Hyponatremia noted at OSH resolved Plan Resumed PT/OT/antibiotics Hyponatremia at OSH resolved trend as needed F/U with Dr Kessler prn Team Conference held 12-21-17-see report for full functional update and POC and ELOS Trend labs TLOA(DAY PASS) for this weekend-see orders MURRAY PAINTER MD Dec 23, 2017 08:17
--- NOTE | 2017-12-23 09:10 | Physical Therapy Daily Note ---
PT Daily Note-Current Subjective Pt. in room with . States they are working on every thing she needs for home. brought her own gait belt and w/c. They states they are building a ramp but this ANALYTICAL TECH recommends railing at steps. Pain Numeric Pain Scale: 0-No Pain Mental Status Patient Orientation: Normal For Age Transfers Functional [place] Measure 0=Not Assessed/NA 4=Minimal Assistance 1=Total Assistance 5=Supervision or Setup 2=Maximal Assistance 6=Modified [place] 3=Moderate Assistance 7=Complete IndependenceIRFPAI Quality Coding Scale 6 Independent with activity with or without an assistive device 5 Patient requires set up or clean up by helper. Patient completes activity by themselves 4 Supervision or touching assist (CGA). [place] provide cues , steadying assist 3 The helper provides less than half the effort to complete the activity 2 The helper provides more than half the effort to complete the activity 1 Dependent. The helper does all the effort to complete an activity 7 Patient refused to complete or attempt activity 9 The patient did not perform the activity before the current illness or injury 88 Not attempted due to Medical conditions or safety concerns Transfers (B, C, W/C) (FIM): 6 Scootin Rollin Supine to/from Sit: 6 Sit to/from Stand: 6 Weight Bearing Full Weight Bearing Full Weight Bearing Gait Training Does the Patient Walk?: Yes Gait (FIM): 5 Distance (FIM): 3=150 ft (x4) Gait Level of Assist: 5 Gait Persons Needed: 1 Gait Assistive Device: FWW foot drop bilat Stair Training Stair Training: Handrails/: 2 handrails Stairs (FIM): 2 #of Steps: 4 Stairs: Pattern: Step to Level of Assist: 4 pt. needs bilat rails for security. instruction for sequence Exercises Supine Ex: Bridging, Ankle pumps, Quad Set, Rolling, Glut sets, Heel Slides, Short Arc Quads, Scooting, Straight leg raise, Hip abd/add Supine Reps: 15 Standing: Hip Abduction, Hamstring curls, Heel/toe raises, Marching, Mini squats Standing Reps: 10 sidelying hip abd and clamshells x 10 bilat Assessment Current Status: Good Progress PT Short Term Goals Short Term Goals Time Frame: Dec 31, 2017 Transfers (B,C,W/C) (FIM): 4 Gait (FIM): 3 Distance (FIM): 3=150 ft Gait Level of Assist: 3 Gait Assistive Device: FWW Wheelchair Distance: 50'x2 Stairs (FIM): 1 # of Steps: 1 Stairs Level of Assist: 3 PT Cd Mixer Goals Mcfp Goals PT Cd Mixer Goals Time Frame: Jan 21, 2018 Transfers (B,C,W/C) (FIM): 5 Sit to Lying (QC): 5 Lying-Sitting on Side/Bed(QC): 5 Sit to Stand (QC): 5 Rollin Roll Left to Right (QC): 5 Chair/Xqs-tl-Borqp Xfer(QC): 5 Car Transfer (QC): 5 Does the Patient Walk: Yes Gait (FIM): 5 Gait distance (FIM): 3=150 ft Distance: 150ft Walk 10 feet (QC): 5 Walk 10ft-Uneven Surface(QC): 5 Walk 50ft with 2 Turns (QC): 5 Walk 150 ft (QC): 5 Gait Level of Assist: 5 Gait Assistive Device: FWW Does the Pt use WC or Scooter?: No Picking up an Object (QC): 5 PT Plan Treatment/Plan Treatment Plan: Continue Plan of Care Treatment Plan: Bed Mobility, Concurrent Therapy, Functional Activity Wen, Functional Strength, Group Therapy, Gait, Safety, Therapeutic Exercise, Transfers Treatment Duration: Jan 21, 2018 Frequency: At least 5 of 7 days/Wk (IRF) Estimated Hrs Per Day: 1.5 hours per day Patient and/or Family Agrees t: Yes Safety Risks/Education Patient Education: Gait Training, Transfer Techniques, Steps, Correct Positioning, Disease Process, Safety Issues Teaching Recipient: Patient Teaching Methods: Demonstration, Discussion Response to Teaching: Verbalize Understanding, Return Demonstration, Reinforcement Needed Time/GCodes Time In: 800 Time Out: 900 Total Billed Treatment Time: 60 Total Billed Treatment 1,FA20m,EX25m,GT15m G Codes Necessary: RIVAS Eddy PTA Dec 23, 2017 09:09
[2017-12-23] MEDS: NITROFURANTOIN 100 MG (MACROBID) CAPSULE PO SCH ×2 (09:19→21:27)
[2017-12-23] MEDS: GABAPENTIN 100 MG (NEURONTIN) CAP PO SCH ×3 (09:19→21:27)
[2017-12-23] MEDS: LOSARTAN 50 MG (COZAAR) TAB PO SCH (09:19)
[2017-12-23] MEDS: meTOprolol TARTRATE 25 MG (LOPRESSOR) TABLET PO SCH ×2 (09:19→21:27)
[2017-12-23 09:34] LABS: BASOPHILS # (AUTO) 0.1 10^3/uL (0.0-0.1); BASOPHILS % (AUTO) 0 % (0-10); EOSINOPHILS % (AUTO) 0 % (0-10); HEMATOCRIT 27 % (35-52); HEMOGLOBIN 9.1 G/DL (11.5-16.0); LYMPHOCYTES # (AUTO) 2.5 X 10^3 (1.0-4.0); LYMPHOCYTES % (AUTO) 9 % (12-44); MEAN CORPUSCULAR HEMOGLOBIN 32 PG (25-34); MEAN CORPUSCULAR HGB CONC 34 G/DL (32-36); MEAN CORPUSCULAR VOLUME 95 FL (80-99); MEAN PLATELET VOLUME 9.9 FL (7.4-10.4); MONOCYTES # (AUTO) 1.5 X 10^3 (0.0-1.0); MONOCYTES % (AUTO) 5 % (0-12); NEUTROPHILS % (AUTO) 85 % (42-75); PLATELET COUNT 380 10^3/uL (130-400); RED BLOOD COUNT 2.83 10^6/uL (4.35-5.85); RED CELL DISTRIBUTION WIDTH 12.9 % (10.0-14.5); WHITE BLOOD COUNT 28.1 10^3/uL (4.3-11.0)
--- NOTE | 2017-12-23 11:35 | Occupational Ther Daily Note ---
OT Current Status-Daily Note Subjective Pt seen in room, up in w/c, agreeable to OT. Pt stated that she transferred herself three times to [facility] by bed last night, using FWW, without calling for help. No pain reported but she is anxious for pass this weekend and to maybe go home sooner. Appearance Alert, cooperative Mental Status/Objective Functional [place] Measure 0=Not Assessed/NA 4=Minimal Assistance 1=Total Assistance 5=Supervision or Setup 2=Maximal Assistance 6=Modified [place] 3=Moderate Assistance 7=Complete [place] ADL-Treatment Functional [place] Measure 0=Not Assessed/NA 4=Minimal Assistance 1=Total Assistance 5=Supervision or Setup 2=Maximal Assistance 6=Modified [place] 3=Moderate Assistance 7=Complete IndependenceIRFPAI Quality Coding Scale 6 Independent with activity with or without an assistive device 5 Patient requires set up or clean up by helper. Patient completes activity by themselves 4 Supervision or touching assist (CGA). [place] provide cues , steadying assist 3 The helper provides less than half the effort to complete the activity 2 The helper provides more than half the effort to complete the activity 1 Dependent. The helper does all the effort to complete an activity 7 Patient refused to complete or attempt activity 9 The patient did not perform the activity before the current illness or injury 88 Not attempted due to Medical conditions or safety concerns Other Treatment Pt has her own w/c now from home and it seems to ft her well. She is able to manage brakes herself without extensions. Pt propelled herself to gym per w/c and positioned chair at table, locking brakes. She did 12 minutes bilat UE ex on arm bike set at 25W resistance (increased time and resistance), with no breaks. She also did table top activities with 1# weight on each arm, including arc activity with short extension (lifting object with L hand in position on R side was difficult and needed rest breaks), nuts and bolts and pegs. All to strengthen arms to help with transfers and ADLs. Pt propelled herself back to her room but needed help the last few feet, due to UE fatigue. She transferred to bed with SBA, FWW and was able to transition to supine without help. All needs met. Education OT Patient Education: Exercise program, Progress toward Goal/Update tx plan, Purpose of tx/functional activities Teaching Recipient: Patient Teaching Methods: Discussion Response to Teaching: Verbalize Understanding OT Short Term Goals Short Term Goals Time Frame: Dec 24, 2017 Grooming(FIM): 5 Bathing(FIM): 4 Upper Body Dressing(FIM): 5 Lower Body Dressing(FIM): 3 Transfers (B,C,W/C) (FIM): 4 Toilet/Commode Transfer(FIM): 4 Additional Short Term Goals: 2-Verbalize Understanding, 3-ImproveStrength/Wen 1=Demonstrate adherence to instructed precautions during ADL tasks. 2=Patient will verbalize/demonstrate understanding of assistive devices/ modifications for ADL. 3=Patient will improve strength/tolerance for activity to enable patient to perform ADL's. OT Penitentiary Goals El Teacher Goals Time Frame: Jan 07, 2018 Eating (FIM): 6 Eating (QC): 6 Groomin Oral Hygiene (QC): 6 Bathing(FIM): 5 Shower/Bathe Self (QC): 4 Upper Body Dressing(FIM): 5 Upper Body Dressing (QC): 5 Lower Body Dressing(FIM): 5 Lower Body Dressing (QC): 5 On/Off Footwear (QC): 5 Toileting(FIM): 5 Toileting Hygiene (QC): 5 Toilet/Commode Transfer(FIM): 5 Toilet/Commode Transfer (QC): 5 Shower Transfer(FIM): 5 Additional Goals: 1-Demonstrate ADL Tasks, 2-Verbalize Understanding, 3- ImproveStrength/Wen 1=Demonstrate adherence to instructed precautions during ADL tasks. 2=Patient will verbalize/demonstrate understanding of assistive devices/ modifications for ADL. 3=Patient will improve strength/tolerance for activity to enable patient to perform ADL's. OT Education/Plan Problem List/Assessment Pt to benefit from skilled OT intervention for ADL training, transfers, strengthening, adaptive equipment training as needed, and home safety education to increase level of independence and allow safe discharge plan. Discharge Recommendations Plan/Recommendations: Continue POC Treatment Plan/Plan of Care Patient would benefit from OT for education, treatment and training to promote independence in ADL's, mobility, safety and/or upper extremity function for ADL' s. Plan of Care: ADL Retraining, Functional Mobility, Group Exercise/Act as Ind, UE Funct Exercise/Act Treatment Duration: Jan 07, 2018 Frequency: At least 5 of 7 days/Wk (IRF) Estimated Hrs Per Day: 1.5 hours per day Agreement: Yes Rehab Potential: Fair Time/GCodes Start Time: 09:35 Stop Time: 10:40 Total Time Billed (hr/min): 65 Billed Treatment Time visit, 65 minutes exercise RAQUEL STEVENS OT Dec 23, 2017 11:35
--- NOTE | 2017-12-23 12:44 | Progress Note (SOAP) ---
Subjective Time Seen by Provider: 12:45 Subjective/Events-last exam Patient feeling better. Patient White blood cell count increased. To monitor Objective Exam Vital Signs Date Time Temp Pulse Resp B/P (MAP) Pulse Ox O2 Delivery O2 Flow Rate FiO2 12/23/17 05:01 97.7 74 16 130/80 (97) 99 Room Air 12/22/17 20:13 Room Air 12/22/17 18:12 96.2 71 18 137/81 (99) 99 Room Air I & O 12/23/17 07:00 Intake Total 1740 ml Output Total 1125 ml Balance 615 ml Capillary Refill : General Appearance: No Apparent Distress Results Lab Laboratory Tests 12/23/17 09:24: White Blood Count 28.1H, Red Blood Count 2.83L, Hemoglobin 9.1L, Hematocrit 27L , Mean Corpuscular Volume 95, Mean Corpuscular Hemoglobin 32, Mean Corpuscular Hemoglobin Concent 34, Red Cell Distribution Width 12.9, Platelet Count 380, Mean Platelet Volume 9.9, Neutrophils (%) (Auto) 85H, Lymphocytes (%) (Auto) 9L , Monocytes (%) (Auto) 5, Eosinophils (%) (Auto) 0, Basophils (%) (Auto) 0, Neutrophils # (Auto) 24.0H, Lymphocytes # (Auto) 2.5, Monocytes # (Auto) 1.5H, Eosinophils # (Auto) 0.0, Basophils # (Auto) 0.1 Microbiology 12/19/17 Blood Culture - Preliminary, Resulted No growth 12/19/17 Urine Culture - Final, Complete Enterococcus faecalis Yeast species Assessment/Plan Assessment/Plan Assess & Plan/Chief Complaint Acute encephalopathy. Metastatic lung cancer. Hypertension. Tobaccoism.. . 12/21/17. Acute encephalopathy. Metastatic lung cancer. Hypertension. Tobaccoism. Patient feeling better today. . 12/22/17. Acute encephalopathy. Metastatic colon cancer. Tobaccoism. White blood cell count coming down. Patient improved. . 12/23/17. Kidney encephalopathy. Metastatic colon cancer area White blood cell count went up today. To check tomorrow Clinical Quality Measures DVT/VTE Risk/Contraindication: Risk Factor Score Per Nursin RFS Level Per Nursing on Admit: 4+=Very High LUI MELGAR DO Dec 23, 2017 12:44
--- NOTE | 2017-12-23 13:28 | Physical Therapy Daily Note ---
PT Daily Note-Current Subjective Agreeable to PT. Looking forward to a home pass on Tuesday. Transfers Functional [place] Measure 0=Not Assessed/NA 4=Minimal Assistance 1=Total Assistance 5=Supervision or Setup 2=Maximal Assistance 6=Modified [place] 3=Moderate Assistance 7=Complete IndependenceIRFPAI Quality Coding Scale 6 Independent with activity with or without an assistive device 5 Patient requires set up or clean up by helper. Patient completes activity by themselves 4 Supervision or touching assist (CGA). [place] provide cues , steadying assist 3 The helper provides less than half the effort to complete the activity 2 The helper provides more than half the effort to complete the activity 1 Dependent. The helper does all the effort to complete an activity 7 Patient refused to complete or attempt activity 9 The patient did not perform the activity before the current illness or injury 88 Not attempted due to Medical conditions or safety concerns Weight Bearing Full Weight Bearing Full Weight Bearing Treatments Min assist to transfer tofrom the toilet and to stand from the toilet and CGA to transfer to the wheelchair; CGA as she pulled her pants up and mod indep with yony care in sitting. . Pt transferred on/off nu step with CGA. Nu step x 15 min on level 2 for LE strength and functional activity tolerance. Pt up in wheelchair with OT post treatment. Assessment Current Status: Good Progress Needed light assist to get off the toilet. PT Short Term Goals Short Term Goals Time Frame: Dec 31, 2017 Transfers (B,C,W/C) (FIM): 4 Gait (FIM): 3 Distance (FIM): 3=150 ft Gait Level of Assist: 3 Gait Assistive Device: FWW Wheelchair Distance: 50'x2 Stairs (FIM): 1 # of Steps: 1 Stairs Level of Assist: 3 PT Assisted Goals Assisted Goals PT Assisted Goals Time Frame: Jan 21, 2018 Transfers (B,C,W/C) (FIM): 5 Sit to Lying (QC): 5 Lying-Sitting on Side/Bed(QC): 5 Sit to Stand (QC): 5 Rollin Roll Left to Right (QC): 5 Chair/Str-ih-Gvjpd Xfer(QC): 5 Car Transfer (QC): 5 Does the Patient Walk: Yes Gait (FIM): 5 Gait distance (FIM): 3=150 ft Distance: 150ft Walk 10 feet (QC): 5 Walk 10ft-Uneven Surface(QC): 5 Walk 50ft with 2 Turns (QC): 5 Walk 150 ft (QC): 5 Gait Level of Assist: 5 Gait Assistive Device: FWW Does the Pt use WC or Scooter?: No Picking up an Object (QC): 5 PT Plan Problem List Problem List: Activity Tolerance, Functional Strength, Safety Treatment/Plan Treatment Plan: Continue Plan of Care Treatment Plan: Bed Mobility, Concurrent Therapy, Functional Activity Wen, Functional Strength, Group Therapy, Gait, Safety, Therapeutic Exercise, Transfers Treatment Duration: Jan 21, 2018 Frequency: At least 5 of 7 days/Wk (IRF) Estimated Hrs Per Day: 1.5 hours per day Patient and/or Family Agrees t: Yes Safety Risks/Education Patient Education: Safety Issues Teaching Recipient: Patient Teaching Methods: Discussion Response to Teaching: Reinforcement Needed Time/GCodes Time In: 1255 Time Out: 1325 Total Billed Treatment Time: 30 Total Billed Treatment vsiit FA 15 EX 15 ESTHER FLOREZ PT Dec 23, 2017 13:28
--- NOTE | 2017-12-23 14:33 | Occupational Ther Daily Note ---
OT Current Status-Daily Note Subjective Pt seen in gym after PT. No pain mentioned. Appearance Alert, cooperative Mental Status/Objective Functional [place] Measure 0=Not Assessed/NA 4=Minimal Assistance 1=Total Assistance 5=Supervision or Setup 2=Maximal Assistance 6=Modified [place] 3=Moderate Assistance 7=Complete [place] ADL-Treatment Functional [place] Measure 0=Not Assessed/NA 4=Minimal Assistance 1=Total Assistance 5=Supervision or Setup 2=Maximal Assistance 6=Modified [place] 3=Moderate Assistance 7=Complete IndependenceIRFPAI Quality Coding Scale 6 Independent with activity with or without an assistive device 5 Patient requires set up or clean up by helper. Patient completes activity by themselves 4 Supervision or touching assist (CGA). [place] provide cues , steadying assist 3 The helper provides less than half the effort to complete the activity 2 The helper provides more than half the effort to complete the activity 1 Dependent. The helper does all the effort to complete an activity 7 Patient refused to complete or attempt activity 9 The patient did not perform the activity before the current illness or injury 88 Not attempted due to Medical conditions or safety concerns Other Treatment Pt did 15 reps bilat UE ex with 1# exercise bar. She needed a recovery period for shoulder flex so did 8 and 7 reps. Did 15 reps other ex, working on shoulders, elbows and wrists. She was unable to do shoulder flex with 1# weight on each arm and unable to get full range. Pt educ on 2 different exercises that she can do on her own without equipment, with return demo. Pt educ on energy conservation techniques and provided with written information. Once in room, pt practiced transfer to [facility] when it was placed beside the bed (last night it was across the room). She was able to do it with SBA, FWW but acknowledged that she transferred earlier today and needed a little help. She agreed to ask for help. Pt excited about pass this weekend and potential for being discharged earlier than next Tuesday. pt left up in bed, all needs met. Education OT Patient Education: Energy conservation, Exercise program, Purpose of tx/ functional activities Teaching Recipient: Patient Teaching Methods: Discussion Response to Teaching: Verbalize Understanding, Return Demonstration OT Short Term Goals Short Term Goals Time Frame: Dec 24, 2017 Grooming(FIM): 5 Bathing(FIM): 4 Upper Body Dressing(FIM): 5 Lower Body Dressing(FIM): 3 Transfers (B,C,W/C) (FIM): 4 Toilet/Commode Transfer(FIM): 4 Additional Short Term Goals: 2-Verbalize Understanding, 3-ImproveStrength/Wen 1=Demonstrate adherence to instructed precautions during ADL tasks. 2=Patient will verbalize/demonstrate understanding of assistive devices/ modifications for ADL. 3=Patient will improve strength/tolerance for activity to enable patient to perform ADL's. OT Longterm Goals Longterm Goals Time Frame: Jan 07, 2018 Eating (FIM): 6 Eating (QC): 6 Groomin Oral Hygiene (QC): 6 Bathing(FIM): 5 Shower/Bathe Self (QC): 4 Upper Body Dressing(FIM): 5 Upper Body Dressing (QC): 5 Lower Body Dressing(FIM): 5 Lower Body Dressing (QC): 5 On/Off Footwear (QC): 5 Toileting(FIM): 5 Toileting Hygiene (QC): 5 Toilet/Commode Transfer(FIM): 5 Toilet/Commode Transfer (QC): 5 Shower Transfer(FIM): 5 Additional Goals: 1-Demonstrate ADL Tasks, 2-Verbalize Understanding, 3- ImproveStrength/Wen 1=Demonstrate adherence to instructed precautions during ADL tasks. 2=Patient will verbalize/demonstrate understanding of assistive devices/ modifications for ADL. 3=Patient will improve strength/tolerance for activity to enable patient to perform ADL's. OT Education/Plan Problem List/Assessment Pt to benefit from skilled OT intervention for ADL training, transfers, strengthening, adaptive equipment training as needed, and home safety education to increase level of independence and allow safe discharge plan. Discharge Recommendations Plan/Recommendations: Continue POC Treatment Plan/Plan of Care Patient would benefit from OT for education, treatment and training to promote independence in ADL's, mobility, safety and/or upper extremity function for ADL' s. Plan of Care: ADL Retraining, Functional Mobility, Group Exercise/Act as Ind, UE Funct Exercise/Act Treatment Duration: Jan 07, 2018 Frequency: At least 5 of 7 days/Wk (IRF) Estimated Hrs Per Day: 1.5 hours per day Agreement: Yes Rehab Potential: Fair Time/GCodes Start Time: 13:25 Stop Time: 14:00 Total Time Billed (hr/min): 35 Billed Treatment Time visits, 20 minutes exercise, 15 minutes ADL RAQUEL STEVENS OT Dec 23, 2017 14:33
[2017-12-23] MEDS: MIRTAZAPINE 15 MG (REMERON) TAB PO SCH (21:27)
[2017-12-23 21:30] VITALS: BP 132/74
[2017-12-23] MEDS: POLYETHYLENE GLYCOL 17 GM (MIRALAX) PACK PO SCH (21:56)
[2017-12-24] MEDS: MULTIVIT W/MINERALS TAB (THERAGRAN M) PO SCH ×2 (06:18→08:39)
[2017-12-24] MEDS: DEXAMETHASONE 4 MG TAB (DECADRON) PO SCH ×2 (06:18→08:39)
[2017-12-24 06:23] LABS: BASOPHILS # (AUTO) 0.1 10^3/uL (0.0-0.1); BASOPHILS % (AUTO) 0 % (0-10); EOSINOPHILS % (AUTO) 0 % (0-10); HEMATOCRIT 24 % (35-52); HEMOGLOBIN 8.2 G/DL (11.5-16.0); LYMPHOCYTES # (AUTO) 3.5 X 10^3 (1.0-4.0); LYMPHOCYTES % (AUTO) 21 % (12-44); MEAN CORPUSCULAR HEMOGLOBIN 32 PG (25-34); MEAN CORPUSCULAR HGB CONC 34 G/DL (32-36); MEAN CORPUSCULAR VOLUME 96 FL (80-99); MEAN PLATELET VOLUME 9.9 FL (7.4-10.4); MONOCYTES % (AUTO) 6 % (0-12); NEUTROPHILS % (AUTO) 72 % (42-75); PLATELET COUNT 350 10^3/uL (130-400); RED BLOOD COUNT 2.54 10^6/uL (4.35-5.85); RED CELL DISTRIBUTION WIDTH 13.1 % (10.0-14.5); WHITE BLOOD COUNT 16.6 10^3/uL (4.3-11.0)
[2017-12-24 06:33] VITALS: BP 112/65
[2017-12-24] MEDS: LOSARTAN 50 MG (COZAAR) TAB PO SCH (08:39)
[2017-12-24] MEDS: GABAPENTIN 100 MG (NEURONTIN) CAP PO SCH ×3 (08:39→20:09)
[2017-12-24] MEDS: NITROFURANTOIN 100 MG (MACROBID) CAPSULE PO SCH ×2 (08:39→20:09)
[2017-12-24] MEDS: meTOprolol TARTRATE 25 MG (LOPRESSOR) TABLET PO SCH ×2 (08:39→20:10)
[2017-12-24] MEDS: HYDROcodone/APAP 7.5 MG/325 MG (LORTAB, LORCET PLUS) TABLET PO PRN ×2 (11:15→20:13)
--- NOTE | 2017-12-24 13:21 | Physical Therapy Daily Note ---
PT Daily Note-Current Transfers Functional [place] Measure 0=Not Assessed/NA 4=Minimal Assistance 1=Total Assistance 5=Supervision or Setup 2=Maximal Assistance 6=Modified [place] 3=Moderate Assistance 7=Complete IndependenceIRFPAI Quality Coding Scale 6 Independent with activity with or without an assistive device 5 Patient requires set up or clean up by helper. Patient completes activity by themselves 4 Supervision or touching assist (CGA). [place] provide cues , steadying assist 3 The helper provides less than half the effort to complete the activity 2 The helper provides more than half the effort to complete the activity 1 Dependent. The helper does all the effort to complete an activity 7 Patient refused to complete or attempt activity 9 The patient did not perform the activity before the current illness or injury 88 Not attempted due to Medical conditions or safety concerns Weight Bearing Full Weight Bearing Full Weight Bearing Gait Training Gait (FIM): 5 Distance: 200 Gait Level of Assist: 5 Gait Assistive Device: FWW Stair Training 4 Steps (QC): 4 Stairs: Pattern: Step to Level of Assist: 4 Assessment Current Status: Good Progress Pt will benefit from continued therapy for gait and balance. PT Short Term Goals Short Term Goals Time Frame: Dec 31, 2017 Transfers (B,C,W/C) (FIM): 4 Gait (FIM): 3 Distance (FIM): 3=150 ft Gait Level of Assist: 3 Gait Assistive Device: FWW Wheelchair Distance: 50'x2 Stairs (FIM): 1 # of Steps: 1 Stairs Level of Assist: 3 PT [facility] Goals Paper Latcher Goals PT [facility] Goals Time Frame: Jan 21, 2018 Transfers (B,C,W/C) (FIM): 5 Sit to Lying (QC): 5 Lying-Sitting on Side/Bed(QC): 5 Sit to Stand (QC): 5 Rollin Roll Left to Right (QC): 5 Chair/Opz-nw-Zwywq Xfer(QC): 5 Car Transfer (QC): 5 Does the Patient Walk: Yes Gait (FIM): 5 Gait distance (FIM): 3=150 ft Distance: 150ft Walk 10 feet (QC): 5 Walk 10ft-Uneven Surface(QC): 5 Walk 50ft with 2 Turns (QC): 5 Walk 150 ft (QC): 5 Gait Level of Assist: 5 Gait Assistive Device: FWW Does the Pt use WC or Scooter?: No Picking up an Object (QC): 5 PT Plan Treatment/Plan Treatment Plan: Continue Plan of Care Treatment Plan: Bed Mobility, Concurrent Therapy, Functional Activity Wen, Functional Strength, Group Therapy, Gait, Safety, Therapeutic Exercise, Transfers Treatment Duration: Jan 21, 2018 Frequency: At least 5 of 7 days/Wk (IRF) Estimated Hrs Per Day: 1.5 hours per day Patient and/or Family Agrees t: Yes Time/GCodes Time In: 0815 Time Out: 0535 Total Billed Treatment Time: 20 Total Billed Treatment visit, gait 20 min TOMAS VELIZ PT Dec 24, 2017 13:21
[2017-12-24] MEDS: CATHETER FLUSH 10 ML SYR IV SCH ×2 (13:47→19:25)
[2017-12-24 17:03] VITALS: BP 111/73
[2017-12-24] MEDS: MIRTAZAPINE 15 MG (REMERON) TAB PO SCH (20:09)
[2017-12-24] MEDS: POLYETHYLENE GLYCOL 17 GM (MIRALAX) PACK PO SCH (21:28)
[2017-12-25] MEDS: CATHETER FLUSH 10 ML SYR IV SCH ×3 (01:19→19:40)
[2017-12-25 06:00] VITALS: BP 109/73
[2017-12-25] MEDS: HYDROcodone/APAP 7.5 MG/325 MG (LORTAB, LORCET PLUS) TABLET PO PRN ×2 (08:29→18:48)
[2017-12-25] MEDS: GABAPENTIN 100 MG (NEURONTIN) CAP PO SCH ×3 (08:29→19:54)
[2017-12-25] MEDS: LOSARTAN 50 MG (COZAAR) TAB PO SCH (08:29)
[2017-12-25] MEDS: meTOprolol TARTRATE 25 MG (LOPRESSOR) TABLET PO SCH ×2 (08:29→19:54)
[2017-12-25] MEDS: MULTIVIT W/MINERALS TAB (THERAGRAN M) PO SCH (08:29)
[2017-12-25] MEDS: NITROFURANTOIN 100 MG (MACROBID) CAPSULE PO SCH ×2 (08:29→19:54)
[2017-12-25] MEDS: DEXAMETHASONE 4 MG TAB (DECADRON) PO SCH (08:29)
[2017-12-25 08:30] VITALS: BP 123/80
[2017-12-25 18:48] VITALS: BP 124/81
[2017-12-25] MEDS: POLYETHYLENE GLYCOL 17 GM (MIRALAX) PACK PO SCH (19:54)
[2017-12-25] MEDS: ALPRAZolam 0.25 MG (XANAX) TAB PO PRN (19:54)
[2017-12-25] MEDS: MIRTAZAPINE 15 MG (REMERON) TAB PO SCH (19:54)
[2017-12-26 05:37] VITALS: BP 114/78
[2017-12-26] MEDS: HYDROcodone/APAP 7.5 MG/325 MG (LORTAB, LORCET PLUS) TABLET PO PRN ×2 (06:32→20:46)
[2017-12-26] MEDS: DEXAMETHASONE 4 MG TAB (DECADRON) PO SCH (06:32)
[2017-12-26] MEDS: MULTIVIT W/MINERALS TAB (THERAGRAN M) PO SCH (06:32)
[2017-12-26 08:24] VITALS: BP 106/70
[2017-12-26] MEDS: NITROFURANTOIN 100 MG (MACROBID) CAPSULE PO SCH ×2 (08:26→20:42)
[2017-12-26] MEDS: LOSARTAN 50 MG (COZAAR) TAB PO SCH (08:26)
[2017-12-26] MEDS: GABAPENTIN 100 MG (NEURONTIN) CAP PO SCH ×3 (08:26→20:41)
[2017-12-26] MEDS: meTOprolol TARTRATE 25 MG (LOPRESSOR) TABLET PO SCH ×2 (08:26→20:41)
--- NOTE | 2017-12-26 10:00 | Physical Therapy Daily Note ---
PT Daily Note-Current Subjective Pt. comments that overall she feels she has improved but worries about upcoming chemo as well as why sometimes she feels her feet and they respond better than other times. This CREPE MACHINE OPERATOR made attempt to explain these things. Pt. made point to express her appreciation for occupying the indep apt. so her can stay with her as he is the only thing/one that can calm her at night when some fears and anxiety over come her. Pt. states "you really wore me out on Tuesday!" Pain Numeric Pain Scale: 0-No Pain Mental Status Patient Orientation: Normal For Age Transfers Functional [place] Measure 0=Not Assessed/NA 4=Minimal Assistance 1=Total Assistance 5=Supervision or Setup 2=Maximal Assistance 6=Modified [place] 3=Moderate Assistance 7=Complete IndependenceIRFPAI Quality Coding Scale 6 Independent with activity with or without an assistive device 5 Patient requires set up or clean up by helper. Patient completes activity by themselves 4 Supervision or touching assist (CGA). [place] provide cues , steadying assist 3 The helper provides less than half the effort to complete the activity 2 The helper provides more than half the effort to complete the activity 1 Dependent. The helper does all the effort to complete an activity 7 Patient refused to complete or attempt activity 9 The patient did not perform the activity before the current illness or injury 88 Not attempted due to Medical conditions or safety concerns Transfers (B, C, W/C) (FIM): 6 Scootin Rollin Supine to/from Sit: 6 Sit to/from Stand: 6 Weight Bearing Full Weight Bearing Full Weight Bearing Gait Training Does the Patient Walk?: Yes Gait (FIM): 5 Distance (FIM): 3=150 ft (x2) Gait Level of Assist: 5 Gait Persons Needed: 1 Gait Assistive Device: FWW careful with attention to DF and safety with each step. DF slightly improved Exercises Seated Therapy Exercises: Ankle pumps, Sit to stand, Long arc quads, Hip flexion, Hip abd/add Seated Reps: 12 NuStep Minutes: 12 NuStep Workload: 3 Treatments leg presses on nustep x 12 Assessment Current Status: Good Progress more controlled gait, increased safety and awareness PT Short Term Goals Short Term Goals Time Frame: Dec 31, 2017 Transfers (B,C,W/C) (FIM): 4 Gait (FIM): 3 Distance (FIM): 3=150 ft Gait Level of Assist: 3 Gait Assistive Device: FWW Wheelchair Distance: 50'x2 Stairs (FIM): 1 # of Steps: 1 Stairs Level of Assist: 3 PT [facility] Goals Advanced Clinical Specialist Goals PT Advanced Clinical Specialist Goals Time Frame: Jan 21, 2018 Transfers (B,C,W/C) (FIM): 5 Sit to Lying (QC): 5 Lying-Sitting on Side/Bed(QC): 5 Sit to Stand (QC): 5 Rollin Roll Left to Right (QC): 5 Chair/Orh-cv-Goobk Xfer(QC): 5 Car Transfer (QC): 5 Does the Patient Walk: Yes Gait (FIM): 5 Gait distance (FIM): 3=150 ft Distance: 150ft Walk 10 feet (QC): 5 Walk 10ft-Uneven Surface(QC): 5 Walk 50ft with 2 Turns (QC): 5 Walk 150 ft (QC): 5 Gait Level of Assist: 5 Gait Assistive Device: FWW Does the Pt use WC or Scooter?: No Picking up an Object (QC): 5 PT Plan Treatment/Plan Treatment Plan: Continue Plan of Care Treatment Plan: Bed Mobility, Concurrent Therapy, Functional Activity Wen, Functional Strength, Group Therapy, Gait, Safety, Therapeutic Exercise, Transfers Treatment Duration: Jan 21, 2018 Frequency: At least 5 of 7 days/Wk (IRF) Estimated Hrs Per Day: 1.5 hours per day Patient and/or Family Agrees t: Yes Safety Risks/Education Patient Education: Gait Training, Transfer Techniques, Correct Positioning, Disease Process, Safety Issues Teaching Recipient: Patient Teaching Methods: Demonstration, Discussion Response to Teaching: Verbalize Understanding, Return Demonstration, Reinforcement Needed Time/GCodes Time In: 815 Time Out: 900 Total Billed Treatment Time: 45 Total Billed Treatment 1,EX15m,GT15m,FA15m G Codes Necessary: RIVAS [place] CREPE MACHINE OPERATOR Dec 26, 2017 10:00
--- NOTE | 2017-12-26 10:06 | D/C HH Face to Face Order ---
D/C Face to Face Orders Instructions for Patient Patient Instructions/FollowUp: Dr. Norbert Marte on 01/03/18 at 110p Physician to follow Patient: Norbert Marte MD Discharge Diet for Home: Regular Diet Patient Data-Allergies,Ht & Wt Patient Allergies: Coded Allergies: Penicillins (Verified Allergy, Unknown, 09/02/15) Sulfa (Sulfonamide Antibiotics) (Verified Allergy, Unknown, 09/02/15) clindamycin (Verified Allergy, Unknown, 09/02/15) Height (Feet): 5 Height (Inches): 2.00 Weight (Pounds): 105 Weight (Ounces): 0.0 Home Health Need/Face to Face Date of Face to Face: Dec 28, 2017 Clinical Findings: Generalized weakness and fatigue I have seen Pt [id number]: Yes Discharged To: Home Diagnosis/Conditions: 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 Pt req the following assistanc: Walker Home Health Nursing Orders Home Health Services Order: Nursing Services, Management Sme-Evaluate & Treat, Physical Therapy-Evaluate & Treat Initial RN visit to ensure safe transition to home, due to prolonged hospitalization. Home Health Infusion Therapy Line Type: Saline Lock Site Location: Arm-Upper Therapy Orders Therapy Orders: OT (must have SN or PT order), Physical Therapy Therapy Specific Orders: Eval assistive deivces, Teach enviro modifications/ safety, Gait training, Increase strength/endurance Certify Stmt I certify that this patient is under my care and that I, a nurse practitioner or a physician; a legal support assistant working with me, had a face to face encounter that - meets the physician face to face encounter requirements with this patient as dated. I personally scribed for MURRAY PAINTER MD ([email or web address]) on 12/26/17 at 10:06. Electronically submitted by Karli Connolly ([id number]). I personally scribed for MURRAY PAINTER MD) on 12/26/17 at 14:12. Electronically submitted by Karli Connolly ([id number]). MURRAY PAINTER MD Dec 26, 2017 10:02
--- NOTE | 2017-12-26 13:02 | Occupational Ther Daily Note ---
OT Current Status-Daily Note Subjective Pt seen in room, up at EOB, agreeable to OT. Said her pass on Tuesday went well but she was tired when she got back. Appearance Alert, cooperative Mental Status/Objective Functional [place] Measure 0=Not Assessed/NA 4=Minimal Assistance 1=Total Assistance 5=Supervision or Setup 2=Maximal Assistance 6=Modified [place] 3=Moderate Assistance 7=Complete [place] ADL-Treatment Pt got up from EOB with SBA, FWW. Walked to closet to retrieve clean clothes, with pt educ on using walker for transporting items. Pt walked with SBA, FWW to bathroom, sat on toilet to undress and dress. After shower and dressing, she walked to the sink to brush her teeth, SBA. pt walked back into room and sat EOB for UE exercise. Functional [place] Measure 0=Not Assessed/NA 4=Minimal Assistance 1=Total Assistance 5=Supervision or Setup 2=Maximal Assistance 6=Modified [place] 3=Moderate Assistance 7=Complete IndependenceIRFPAI Quality Coding Scale 6 Independent with activity with or without an assistive device 5 Patient requires set up or clean up by helper. Patient completes activity by themselves 4 Supervision or touching assist (CGA). [place] provide cues , steadying assist 3 The helper provides less than half the effort to complete the activity 2 The helper provides more than half the effort to complete the activity 1 Dependent. The helper does all the effort to complete an activity 7 Patient refused to complete or attempt activity 9 The patient did not perform the activity before the current illness or injury 88 Not attempted due to Medical conditions or safety concerns Grooming (FIM): 5 (SBA, standing at sink to brush her teeth, FWW. Wshed face and hands in shower) Bathing (FIM): 6 (Pt turned water on and off and retrieved towel from bars. Washed and dried all parts. Transfer tub benc, grab bars, hand held shower. ) Upper Body (FIM): 5 (Pt retrieved clean clothes form closet, SFA, FWW, pt educ to put them on FWW. ) Lower Body Dressing (FIM): 5 (Pt retrieved clean clothes form closet, SBA, FWW. Doffed and donned clothing without assistance, including socks and shoes) Toileting (FIM): 5 (Managed clothing and hygiene with SBA at toilet. Tall toilet, grab bar, FWW. Struggled to stand to pull pants up due to fatigue) Toilet/Commode Transfer (FIM): 5 (SBA, getting on and off tall toilet. grab bars, FWW) Tub Transfer(FIM): 5 (SBA, getting on and off transfer tub bench. Able to scoot and get legs in without assistance. grab bars) Other Treatment Pt did 10 reps bilat UE exercise with yellow theraband, with minimal cues to do the exercises. To strengthen arms to help with transfers and ADLs. Pt was left sitting EOB, all needs met. Education OT Patient Education: Progress toward Goal/Update tx plan, Purpose of tx/ functional activities, Safety issues, Transfer techniques Teaching Recipient: Patient Teaching Methods: Demonstration, Discussion Response to Teaching: Verbalize Understanding, Return Demonstration, Reinforcement Needed OT Short Term Goals Short Term Goals Time Frame: Dec 24, 2017 Grooming(FIM): 5 Bathing(FIM): 4 Upper Body Dressing(FIM): 5 Lower Body Dressing(FIM): 3 Transfers (B,C,W/C) (FIM): 4 Toilet/Commode Transfer(FIM): 4 Additional Short Term Goals: 2-Verbalize Understanding, 3-ImproveStrength/Wen 1=Demonstrate adherence to instructed precautions during ADL tasks. 2=Patient will verbalize/demonstrate understanding of assistive devices/ modifications for ADL. 3=Patient will improve strength/tolerance for activity to enable patient to perform ADL's. OT Individual Small Group Instructor Goals [facility] Goals Time Frame: Jan 07, 2018 Eating (FIM): 6 Eating (QC): 6 Groomin Oral Hygiene (QC): 6 Bathing(FIM): 5 Shower/Bathe Self (QC): 4 Upper Body Dressing(FIM): 5 Upper Body Dressing (QC): 5 Lower Body Dressing(FIM): 5 Lower Body Dressing (QC): 5 On/Off Footwear (QC): 5 Toileting(FIM): 5 Toileting Hygiene (QC): 5 Toilet/Commode Transfer(FIM): 5 Toilet/Commode Transfer (QC): 5 Shower Transfer(FIM): 5 Additional Goals: 1-Demonstrate ADL Tasks, 2-Verbalize Understanding, 3- ImproveStrength/Wen 1=Demonstrate adherence to instructed precautions during ADL tasks. 2=Patient will verbalize/demonstrate understanding of assistive devices/ modifications for ADL. 3=Patient will improve strength/tolerance for activity to enable patient to perform ADL's. OT Education/Plan Problem List/Assessment Pt to benefit from skilled OT intervention for ADL training, transfers, strengthening, adaptive equipment training as needed, and home safety education to increase level of independence and allow safe discharge plan. Discharge Recommendations Plan/Recommendations: Continue POC Treatment Plan/Plan of Care Patient would benefit from OT for education, treatment and training to promote independence in ADL's, mobility, safety and/or upper extremity function for ADL' s. Plan of Care: ADL Retraining, Functional Mobility, Group Exercise/Act as Ind, UE Funct Exercise/Act Treatment Duration: Jan 07, 2018 Frequency: At least 5 of 7 days/Wk (IRF) Estimated Hrs Per Day: 1.5 hours per day Agreement: Yes Rehab Potential: Fair Time/GCodes Start Time: 09:00 Stop Time: 10:00 Total Time Billed (hr/min): 60 Billed Treatment Time visit, 50 minutes ADL, 10 minutes exercise RAQUEL STEVENS OT Dec 26, 2017 13:02
--- NOTE | 2017-12-26 13:28 | Physical Therapy Daily Note ---
PT Daily Note-Current Subjective Agrees to Rx. Pain Numeric Pain Scale: 0-No Pain Mental Status Patient Orientation: Normal For Age Transfers Functional [place] Measure 0=Not Assessed/NA 4=Minimal Assistance 1=Total Assistance 5=Supervision or Setup 2=Maximal Assistance 6=Modified [place] 3=Moderate Assistance 7=Complete IndependenceIRFPAI Quality Coding Scale 6 Independent with activity with or without an assistive device 5 Patient requires set up or clean up by helper. Patient completes activity by themselves 4 Supervision or touching assist (CGA). [place] provide cues , steadying assist 3 The helper provides less than half the effort to complete the activity 2 The helper provides more than half the effort to complete the activity 1 Dependent. The helper does all the effort to complete an activity 7 Patient refused to complete or attempt activity 9 The patient did not perform the activity before the current illness or injury 88 Not attempted due to Medical conditions or safety concerns in out bed and chair all mod I Weight Bearing Full Weight Bearing Full Weight Bearing Gait Training Gait Assistive Device: FWW 150ft plus 70 ft all SBA FWW Stair Training Stair Training: Handrails/: 2 handrails Stairs (FIM): 2 #of Steps: 4 Stairs: Pattern: Step to Level of Assist: 4 Exercises Supine Ex: Bridging, Ankle pumps, Quad Set, Rolling, Glut sets, Heel Slides, Short Arc Quads, Scooting, Straight leg raise, Hip abd/add Supine Reps: 20 Seated Therapy Exercises: Ankle pumps, Sit to stand, Long arc quads, Hip flexion Seated Reps: 15 sidelying hip abd and clamshells x 15 Assessment Current Status: Good Progress PT Short Term Goals Short Term Goals Time Frame: Dec 31, 2017 Transfers (B,C,W/C) (FIM): 4 Gait (FIM): 3 Distance (FIM): 3=150 ft Gait Level of Assist: 3 Gait Assistive Device: FWW Wheelchair Distance: 50'x2 Stairs (FIM): 1 # of Steps: 1 Stairs Level of Assist: 3 PT [facility] Goals Information Delivery Analyst Goals PT Information Delivery Analyst Goals Time Frame: Jan 21, 2018 Transfers (B,C,W/C) (FIM): 5 Sit to Lying (QC): 5 Lying-Sitting on Side/Bed(QC): 5 Sit to Stand (QC): 5 Rollin Roll Left to Right (QC): 5 Chair/Chv-ly-Uqzwv Xfer(QC): 5 Car Transfer (QC): 5 Does the Patient Walk: Yes Gait (FIM): 5 Gait distance (FIM): 3=150 ft Distance: 150ft Walk 10 feet (QC): 5 Walk 10ft-Uneven Surface(QC): 5 Walk 50ft with 2 Turns (QC): 5 Walk 150 ft (QC): 5 Gait Level of Assist: 5 Gait Assistive Device: FWW Does the Pt use WC or Scooter?: No Picking up an Object (QC): 5 PT Plan Treatment/Plan Treatment Plan: Continue Plan of Care Treatment Plan: Bed Mobility, Concurrent Therapy, Functional Activity Wen, Functional Strength, Group Therapy, Gait, Safety, Therapeutic Exercise, Transfers Treatment Duration: Jan 21, 2018 Frequency: At least 5 of 7 days/Wk (IRF) Estimated Hrs Per Day: 1.5 hours per day Patient and/or Family Agrees t: Yes Safety Risks/Education Patient Education: Gait Training, Transfer Techniques, Steps Teaching Recipient: Patient Teaching Methods: Demonstration, Discussion Response to Teaching: Verbalize Understanding, Return Demonstration, Reinforcement Needed Time/GCodes Time In: 1245 Time Out: 1330 Total Billed Treatment Time: 45 Total Billed Treatment 1,FA15m,EX15m,GT15m G Codes Necessary: No RIVAS TY PTA Dec 26, 2017 13:28
--- NOTE | 2017-12-26 14:09 | Occupational Ther Daily Note ---
OT Current Status-Daily Note Subjective Pt seen in gym after PT, agreeable to OT. No pain mentioned Mental Status/Objective Functional [place] Measure 0=Not Assessed/NA 4=Minimal Assistance 1=Total Assistance 5=Supervision or Setup 2=Maximal Assistance 6=Modified [place] 3=Moderate Assistance 7=Complete [place] ADL-Treatment Functional [place] Measure 0=Not Assessed/NA 4=Minimal Assistance 1=Total Assistance 5=Supervision or Setup 2=Maximal Assistance 6=Modified [place] 3=Moderate Assistance 7=Complete IndependenceIRFPAI Quality Coding Scale 6 Independent with activity with or without an assistive device 5 Patient requires set up or clean up by helper. Patient completes activity by themselves 4 Supervision or touching assist (CGA). [place] provide cues , steadying assist 3 The helper provides less than half the effort to complete the activity 2 The helper provides more than half the effort to complete the activity 1 Dependent. The helper does all the effort to complete an activity 7 Patient refused to complete or attempt activity 9 The patient did not perform the activity before the current illness or injury 88 Not attempted due to Medical conditions or safety concerns Other Treatment pt did 14 minutes bilat UE on arm bike, taking a couple brief recovery periods. Set at 25W resistance, increase of 2 minutes time. To strengthen arms to help with transfers and ADLs. She walked back to her room, stopping half way for a recovery period (200 feet total), SBA, FWW. pt left up at edge of bed, all needs met. Education OT Patient Education: Exercise program, Progress toward Goal/Update tx plan, Purpose of tx/functional activities Teaching Recipient: Patient Teaching Methods: Discussion Response to Teaching: Verbalize Understanding, Return Demonstration OT Short Term Goals Short Term Goals Time Frame: Dec 24, 2017 Grooming(FIM): 5 Bathing(FIM): 4 Upper Body Dressing(FIM): 5 Lower Body Dressing(FIM): 3 Transfers (B,C,W/C) (FIM): 4 Toilet/Commode Transfer(FIM): 4 Additional Short Term Goals: 2-Verbalize Understanding, 3-ImproveStrength/Wen 1=Demonstrate adherence to instructed precautions during ADL tasks. 2=Patient will verbalize/demonstrate understanding of assistive devices/ modifications for ADL. 3=Patient will improve strength/tolerance for activity to enable patient to perform ADL's. OT Mcc Goals Mcc Goals Time Frame: Jan 07, 2018 Eating (FIM): 6 Eating (QC): 6 Groomin Oral Hygiene (QC): 6 Bathing(FIM): 5 Shower/Bathe Self (QC): 4 Upper Body Dressing(FIM): 5 Upper Body Dressing (QC): 5 Lower Body Dressing(FIM): 5 Lower Body Dressing (QC): 5 On/Off Footwear (QC): 5 Toileting(FIM): 5 Toileting Hygiene (QC): 5 Toilet/Commode Transfer(FIM): 5 Toilet/Commode Transfer (QC): 5 Shower Transfer(FIM): 5 Additional Goals: 1-Demonstrate ADL Tasks, 2-Verbalize Understanding, 3- ImproveStrength/Wen 1=Demonstrate adherence to instructed precautions during ADL tasks. 2=Patient will verbalize/demonstrate understanding of assistive devices/ modifications for ADL. 3=Patient will improve strength/tolerance for activity to enable patient to perform ADL's. OT Education/Plan Problem List/Assessment Pt to benefit from skilled OT intervention for ADL training, transfers, strengthening, adaptive equipment training as needed, and home safety education to increase level of independence and allow safe discharge plan. Discharge Recommendations Plan/Recommendations: Continue POC Treatment Plan/Plan of Care Patient would benefit from OT for education, treatment and training to promote independence in ADL's, mobility, safety and/or upper extremity function for ADL' s. Plan of Care: ADL Retraining, Functional Mobility, Group Exercise/Act as Ind, UE Funct Exercise/Act Treatment Duration: Jan 07, 2018 Frequency: At least 5 of 7 days/Wk (IRF) Estimated Hrs Per Day: 1.5 hours per day Agreement: Yes Rehab Potential: Fair Time/GCodes Start Time: 13:30 Stop Time: 14:00 Total Time Billed (hr/min): 30 Billed Treatment Time visit, 30 minutes exercise RAQUEL STEVENS OT Dec 26, 2017 14:09
--- NOTE | 2017-12-26 15:12 | PM & R (SOAP) Progress Note ---
Subjective Time Seen by Provider: 14:40 Subjective/Events-last exam Patient was seen in her room this afternoon Patient Modified Independent for transfers Objective Exam Last Set of Vital Signs Vital Signs Date Time Temp Pulse Resp B/P (MAP) Pulse Ox O2 Delivery O2 Flow Rate FiO2 12/26/17 09:00 Room Air 12/26/17 08:24 84 106/70 (82) 12/26/17 05:37 98.0 16 98 Capillary Refill : I&O Intake and Output 12/26/17 00:00 Intake Total 100 ml Balance 100 ml Intake Oral 100 ml # Voids 3 # Bowel Movements 1 General: Alert, Oriented X3, Cooperative, No Acute Distress HEENT: Atraumatic, PERRLA, EOMI, Mucous Memb Moist/[place] Neck: Supple, No JVD Lungs: Clear to Auscultation Heart: Regular Rate Abdomen: Normal Bowel Sounds, Soft, No Tenderness Extremities: No Edema Neuro: Other (generalized weakness ) Results Lab Laboratory Tests 12/24/17 05:57: White Blood Count 16.6H, Red Blood Count 2.54L, Hemoglobin 8.2L, Hematocrit 24L , Mean Corpuscular Volume 96, Mean Corpuscular Hemoglobin 32, Mean Corpuscular Hemoglobin Concent 34, Red Cell Distribution Width 13.1, Platelet Count 350, Mean Platelet Volume 9.9, Neutrophils (%) (Auto) 72, Lymphocytes (%) (Auto) 21, Monocytes (%) (Auto) 6, Eosinophils (%) (Auto) 0, Basophils (%) (Auto) 0, Neutrophils # (Auto) 12.0H, Lymphocytes # (Auto) 3.5, Monocytes # (Auto) 1.0, Eosinophils # (Auto) 0.0, Basophils # (Auto) 0.1 Microbiology 12/19/17 Blood Culture - Final, Complete No growth 12/19/17 Urine Culture - Final, Complete Enterococcus faecalis Yeast species Assessment/Plan Assessment Lung ca with mets to brain s/p RT for brain tumor and Chemo for Lung CA Enterococcus UTI withLeukocytosis and elevated Serum lactic acid improving with Antibiotics-completed course today HTN controlled Hyperglycemia due to steroids improved Mild hypokalemia replacement ordered Hyponatremia noted at OSH resolved Plan Resumed PT/OT Hyponatremia at OSH resolved trend as needed F/U with Dr Kessler prn Trend labs TLOA(DAY PASS) for this past weekend-went well Next Team Conference 3-14-18 MURRAY PAINTER MD Dec 26, 2017 15:12
[2017-12-26 17:39] VITALS: BP 125/81
--- NOTE | 2017-12-26 17:57 | Progress Note (SOAP) ---
Subjective Time Seen by Provider: 17:50 Subjective/Events-last exam Patient feeling better. Patient doing better mentally. Patient wants local oncologist. Focused Exam Respiratory: Lungs Clear, No Accessory Muscle Use, No Respiratory Distress Cardiovascular: Regular Rate, Rhythm, No Murmur Objective Exam Vital Signs Date Time Temp Pulse Resp B/P (MAP) Pulse Ox O2 Delivery O2 Flow Rate FiO2 12/26/17 17:39 97.5 87 18 125/81 (96) 98 Room Air 12/26/17 09:00 Room Air 12/26/17 08:24 84 106/70 (82) 12/26/17 05:37 98.0 80 16 114/78 (90) 98 Room Air 12/25/17 20:00 Room Air 12/25/17 18:48 98.5 74 16 124/81 (95) 99 Room Air I & O 12/26/17 07:00 Intake Total 450 ml Balance 450 ml Capillary Refill : General Appearance: No Apparent Distress, Thin Neck: Full Range of Motion Respiratory: Lungs Clear, No Accessory Muscle Use, No Respiratory Distress Cardiovascular: Regular Rate, Rhythm, No Murmur Gastrointestinal: soft Results Lab Microbiology 12/19/17 Blood Culture - Final, Complete No growth 12/19/17 Urine Culture - Final, Complete Enterococcus faecalis Yeast species Assessment/Plan Assessment/Plan Assess & Plan/Chief Complaint Acute encephalopathy. Metastatic lung cancer. Hypertension. Tobaccoism.. . 12/21/17. Acute encephalopathy. Metastatic lung cancer. Hypertension. Tobaccoism. Patient feeling better today. . 12/22/17. Acute encephalopathy. Metastatic colon cancer. Tobaccoism. White blood cell count coming down. Patient improved. . 12/23/17. Kidney encephalopathy. Metastatic colon cancer area White blood cell count went up today. To check tomorrow. . 12/26/17. Encephalopathy. Metastatic colon cancer. Patient feeling better patient wants local oncologist Clinical Quality Measures DVT/VTE Risk/Contraindication: Risk Factor Score Per Nursin RFS Level Per Nursing on Admit: 4+=Very High LUI MELGAR DO Dec 26, 2017 17:57
[2017-12-26] MEDS: MIRTAZAPINE 15 MG (REMERON) TAB PO SCH (20:41)
[2017-12-26] MEDS: POLYETHYLENE GLYCOL 17 GM (MIRALAX) PACK PO SCH (20:41)
[2017-12-27 06:10] VITALS: BP 124/75
[2017-12-27] MEDS: MULTIVIT W/MINERALS TAB (THERAGRAN M) PO SCH (07:39)
[2017-12-27] MEDS: DEXAMETHASONE 4 MG TAB (DECADRON) PO SCH (07:39)
[2017-12-27] MEDS: GABAPENTIN 100 MG (NEURONTIN) CAP PO SCH ×3 (08:25→21:08)
[2017-12-27] MEDS: meTOprolol TARTRATE 25 MG (LOPRESSOR) TABLET PO SCH ×2 (08:25→21:09)
[2017-12-27] MEDS: LOSARTAN 50 MG (COZAAR) TAB PO SCH (08:25)
--- NOTE | 2017-12-27 09:20 | Physical Therapy Daily Note ---
PT Daily Note-Current Subjective Pt sitting up in [facility] upon arrival. Pt agrees to PT but reports feeling tired this morning due to not sleeping well last night. Pt reports feeling anxious/ nervous about discharge and going home. AIDS SOCIAL WORKER reassures pt during tx. Mental Status Patient Orientation: Person, Place, Time, Situation Transfers Functional [place] Measure 0=Not Assessed/NA 4=Minimal Assistance 1=Total Assistance 5=Supervision or Setup 2=Maximal Assistance 6=Modified [place] 3=Moderate Assistance 7=Complete IndependenceIRFPAI Quality Coding Scale 6 Independent with activity with or without an assistive device 5 Patient requires set up or clean up by helper. Patient completes activity by themselves 4 Supervision or touching assist (CGA). [place] provide cues , steadying assist 3 The helper provides less than half the effort to complete the activity 2 The helper provides more than half the effort to complete the activity 1 Dependent. The helper does all the effort to complete an activity 7 Patient refused to complete or attempt activity 9 The patient did not perform the activity before the current illness or injury 88 Not attempted due to Medical conditions or safety concerns Transfers (B, C, W/C) (FIM): 6 Scootin Rollin Roll Left to Right (QC): 6 Supine to/from Sit: 6 Sit to/from Stand: 6 Sit to Lying (QC): 6 Sit to Stand (QC): 6 Chair/Lgw-xr-Sxgsr Xfer(QC): 6 Bed to/from Chair: 6 Car Transfer (QC): 6 Weight Bearing Full Weight Bearing Full Weight Bearing Gait Training Does the Patient Walk?: Yes Gait (FIM): 5 Distance (FIM): 3=150 ft Distance: 225' Walk 10 feet (QC): 5 Walk 50 ft with 2 Turns(QC): 5 Walk 150 ft (QC): 5 Walking 10ft/uneven surface-QC: 5 Gait Level of Assist: 5 Gait Persons Needed: 1 Gait Assistive Device: FWW Pt walks with slow luz but steady, no LOB. Pt has improved but still struggles with DF. Wheelchair Training Does the Pt Use a Wheelchair?: No Stair Training Stair Training: Handrails/: 2 handrails Stairs (FIM): 2 #of Steps: 4 1 Step (curb) (QC): 5 4 Steps (QC): 5 Stairs: Pattern: Step to Level of Assist: 5 Exercises Supine Ex: Ankle pumps, Heel Slides, Straight leg raise Seated Therapy Exercises: Ankle pumps, Long arc quads, Hip flexion, Kicking activity Treatments Pt transfers from [facility] to standing using FWW at [facility]. Pt ambualates using FWW at [facility]. Pt completes 1 set of 4 stairs at [facility]. Pt completes ambulating on varying surface for at least 10', picking up object off floor at [facility] & transfers including car transfer and bed mobility at [facility]. Pt returns to room to rest Supine in bed at [facility]. Pt has all needs met at end of tx. Assessment Current Status: Good Progress Pt has improved with safety and independence of transfers and mobility. Pt continues to have some difficulty with some strengthening but has greatly improved. PT Short Term Goals Short Term Goals Time Frame: Dec 31, 2017 Transfers (B,C,W/C) (FIM): 4 Gait (FIM): 3 Distance (FIM): 3=150 ft Gait Level of Assist: 3 Gait Assistive Device: FWW Wheelchair Distance: 50'x2 Stairs (FIM): 1 # of Steps: 1 Stairs Level of Assist: 3 PT Fdc Goals Fdc Goals PT Fdc Goals Time Frame: Jan 21, 2018 Transfers (B,C,W/C) (FIM): 5 Sit to Lying (QC): 5 Lying-Sitting on Side/Bed(QC): 5 Sit to Stand (QC): 5 Rollin Roll Left to Right (QC): 5 Chair/Qag-dm-Znfqk Xfer(QC): 5 Car Transfer (QC): 5 Does the Patient Walk: Yes Gait (FIM): 5 Gait distance (FIM): 3=150 ft Distance: 150ft Walk 10 feet (QC): 5 Walk 10ft-Uneven Surface(QC): 5 Walk 50ft with 2 Turns (QC): 5 Walk 150 ft (QC): 5 Gait Level of Assist: 5 Gait Assistive Device: FWW Does the Pt use WC or Scooter?: No Picking up an Object (QC): 5 PT Plan Problem List Problem List: Activity Tolerance, Functional Strength Treatment/Plan Treatment Plan: Continue Plan of Care Treatment Plan: Bed Mobility, Concurrent Therapy, Functional Activity Wen, Functional Strength, Group Therapy, Gait, Safety, Therapeutic Exercise, Transfers Treatment Duration: Jan 21, 2018 Frequency: At least 5 of 7 days/Wk (IRF) Estimated Hrs Per Day: 1.5 hours per day Patient and/or Family Agrees t: Yes Safety Risks/Education Patient Education: Gait Training, Transfer Techniques, Correct Positioning, Safety Issues Teaching Recipient: Patient Teaching Methods: Discussion Response to Teaching: Verbalize Understanding Time/GCodes Time In: 815 Time Out: 915 Total Billed Treatment 1, GT (15m), FA x2 (30m) & EX (15m) CHRISTIANO WILSON AIDS SOCIAL WORKER Dec 27, 2017 09:19
--- NOTE | 2017-12-27 10:28 | PM & R (SOAP) Progress Note ---
Subjective Time Seen by Provider: 10:20 Subjective/Events-last exam Patient was seen in her room this AM Patient Modified Independent for transfers Patient would like to have her f/u with [facility] here discussed with SW Will ask Nursing to set up appointment upon discharge for patient.Site of Lung Ca clarified from Xray report OSH on the left Objective Exam Last Set of Vital Signs Vital Signs Date Time Temp Pulse Resp B/P (MAP) Pulse Ox O2 Delivery O2 Flow Rate FiO2 12/27/17 06:10 98.1 70 17 124/75 (91) 97 Room Air Capillary Refill : I&O Intake and Output 12/27/17 00:00 Intake Total 1250 ml Balance 1250 ml Intake Oral 1250 ml # Voids 5 General: Alert, Oriented X3, Cooperative, No Acute Distress HEENT: Atraumatic, PERRLA, EOMI, Mucous Memb Moist/[place] Neck: Supple, No JVD Lungs: Clear to Auscultation Heart: Regular Rate Abdomen: Normal Bowel Sounds, Soft, No Tenderness Extremities: No Edema Neuro: Other (generalized weakness ) Results Lab Microbiology 12/19/17 Blood Culture - Final, Complete No growth 12/19/17 Urine Culture - Final, Complete Enterococcus faecalis Yeast species Assessment/Plan Assessment Left Lung ca with mets to brain s/p RT for brain tumor and Chemo for Lung CA Enterococcus UTI with Leukocytosis and elevated Serum lactic acid improving with Antibiotics-completed course today HTN controlled Hyperglycemia due to steroids improved Mild hypokalemia replacement ordered Hyponatremia noted at OSH resolved Plan Continue PT/OT Hyponatremia at OSH resolved trend as needed F/U with Dr Kessler prn Trend labs TLOA(DAY PASS) for this past weekend-went well Discharge set for tomorrow to home with [facility] Patient wishes to have f/u with Cancer Center here See orders MURRAY PAINTER MD Dec 27, 2017 10:28
--- NOTE | 2017-12-27 11:38 | Occupational Ther Daily Note ---
OT Current Status-Daily Note Subjective Pt seen in room, up at EOB, agreeable to OT. No pain mentioned but she said that she didn't sleep well last night, with too many things on her mind. Appearance Alert, cooperative Mental Status/Objective Functional [place] Measure 0=Not Assessed/NA 4=Minimal Assistance 1=Total Assistance 5=Supervision or Setup 2=Maximal Assistance 6=Modified [place] 3=Moderate Assistance 7=Complete [place] ADL-Treatment Pt had already gotten clean clothes out and walked to closet to put dirty ones away. Pt educ on safety for retrieving items from closet and other items such as refrigerators, with verbal understanding. Walked with SBA, FWW to and from bathroom and between toilet, tub and sink. Functional [place] Measure 0=Not Assessed/NA 4=Minimal Assistance 1=Total Assistance 5=Supervision or Setup 2=Maximal Assistance 6=Modified [place] 3=Moderate Assistance 7=Complete IndependenceIRFPAI Quality Coding Scale 6 Independent with activity with or without an assistive device 5 Patient requires set up or clean up by helper. Patient completes activity by themselves 4 Supervision or touching assist (CGA). [place] provide cues , steadying assist 3 The helper provides less than half the effort to complete the activity 2 The helper provides more than half the effort to complete the activity 1 Dependent. The helper does all the effort to complete an activity 7 Patient refused to complete or attempt activity 9 The patient did not perform the activity before the current illness or injury 88 Not attempted due to Medical conditions or safety concerns Eating (FIM): 6 (Pt is able to open packages, cut up food, feed herself without help. There are foods that she sometimes eats that require her dentures) Eating (QC): 6 Grooming (FIM): 6 (Pt was able to brush her teeth, standing at sink with FWW. Also washed face and hands during shower. ) Oral Hygiene (QC): 6 Bathing (FIM): 6 (Pt was able to wash and dry all parts, turned water on/off and retrieved towel from bar. Transfer tub bench, grab bars, hand held shower. In tub) Bathing Location: L Arm, R Arm, L Upper Leg, R Upper Leg, L Lower Leg ( including foot), R Lower Leg (including foot), Chest, Abdomen, Buttocks, Perineal Area Shower/Bathe Self (QC): 6 Upper Body (FIM): 6 (Doffed and donned clothing without assistance) Upper Body Dressing (QC): 6 Lower Body Dressing (FIM): 6 (Doffed and donned clothing without assistance, including socks and shoes. FWW) Lower Body Dressing (QC): 6 On/Off Footwear (QC): 6 Toileting (FIM): 6 (Able to manage clothing and hygiene. Tall toilet, grab bars , FWW) Toileting Hygiene (QC): 6 Toilet/Commode Transfer (FIM): 6 (Able to get on/off tall toilet, grab bar, FWW. Occasionally has a little difficulty pulling up from grab bars and does better if she can push up from arm rests) Toilet Transfer (QC): 6 Tub Transfer(FIM): 6 (On/off transfer tub bench and getting legs in/out of tub) Other Treatment Pt walked to sit EOB. She was able to do 10 reps bila UE ex with yellow theraband and needed almost no cues to do them correctly. Pt educ on how to upgrade program once she goes home. To strengthen arms to help with transfers and ADLs. Pt left sitting EOB, all needs met. Education OT Patient Education: Exercise program, Progress toward Goal/Update tx plan, Purpose of tx/functional activities, Safety issues Teaching Recipient: Patient Teaching Methods: Demonstration, Discussion Response to Teaching: Verbalize Understanding, Return Demonstration OT Short Term Goals Short Term Goals Time Frame: Dec 24, 2017 Grooming(FIM): 5 Bathing(FIM): 4 Upper Body Dressing(FIM): 5 Lower Body Dressing(FIM): 3 Transfers (B,C,W/C) (FIM): 4 Toilet/Commode Transfer(FIM): 4 Additional Short Term Goals: 2-Verbalize Understanding, 3-ImproveStrength/Wen 1=Demonstrate adherence to instructed precautions during ADL tasks. 2=Patient will verbalize/demonstrate understanding of assistive devices/ modifications for ADL. 3=Patient will improve strength/tolerance for activity to enable patient to perform ADL's. OT Software Engineer Goals Software Engineer Goals Time Frame: Jan 07, 2018 Eating (FIM): 6 Eating (QC): 6 Groomin Oral Hygiene (QC): 6 Bathing(FIM): 5 Shower/Bathe Self (QC): 4 Upper Body Dressing(FIM): 5 Upper Body Dressing (QC): 5 Lower Body Dressing(FIM): 5 Lower Body Dressing (QC): 5 On/Off Footwear (QC): 5 Toileting(FIM): 5 Toileting Hygiene (QC): 5 Toilet/Commode Transfer(FIM): 5 Toilet/Commode Transfer (QC): 5 Shower Transfer(FIM): 5 Additional Goals: 1-Demonstrate ADL Tasks, 2-Verbalize Understanding, 3- ImproveStrength/Wen 1=Demonstrate adherence to instructed precautions during ADL tasks. 2=Patient will verbalize/demonstrate understanding of assistive devices/ modifications for ADL. 3=Patient will improve strength/tolerance for activity to enable patient to perform ADL's. OT Education/Plan Problem List/Assessment Pt to benefit from skilled OT intervention for ADL training, transfers, strengthening, adaptive equipment training as needed, and home safety education to increase level of independence and allow safe discharge plan. Discharge Recommendations Plan/Recommendations: Continue POC Treatment Plan/Plan of Care Patient would benefit from OT for education, treatment and training to promote independence in ADL's, mobility, safety and/or upper extremity function for ADL' s. Plan of Care: ADL Retraining, Functional Mobility, Group Exercise/Act as Ind, UE Funct Exercise/Act Treatment Duration: Jan 07, 2018 Frequency: At least 5 of 7 days/Wk (IRF) Estimated Hrs Per Day: 1.5 hours per day Agreement: Yes Rehab Potential: Fair Time/GCodes Start Time: 09:30 Stop Time: 10:30 Total Time Billed (hr/min): 60 Billed Treatment Time visit, 50 minutes ADL, 10 minutes exercise RAQUEL STEVENS OT Dec 27, 2017 11:38
--- NOTE | 2017-12-27 14:10 | Physical Therapy Daily Note ---
PT Daily Note-Current Subjective Pt sitting at EOB upon arrival. Pt agrees to PT and reports needing to use restroom at this time. Pain Location: No Pain Reported Mental Status Patient Orientation: Person, Place, Time, Situation Transfers Functional [place] Measure 0=Not Assessed/NA 4=Minimal Assistance 1=Total Assistance 5=Supervision or Setup 2=Maximal Assistance 6=Modified [place] 3=Moderate Assistance 7=Complete IndependenceIRFPAI Quality Coding Scale 6 Independent with activity with or without an assistive device 5 Patient requires set up or clean up by helper. Patient completes activity by themselves 4 Supervision or touching assist (CGA). [place] provide cues , steadying assist 3 The helper provides less than half the effort to complete the activity 2 The helper provides more than half the effort to complete the activity 1 Dependent. The helper does all the effort to complete an activity 7 Patient refused to complete or attempt activity 9 The patient did not perform the activity before the current illness or injury 88 Not attempted due to Medical conditions or safety concerns Scootin Sit to/from Stand: 6 Sit to Stand (QC): 6 Weight Bearing Full Weight Bearing Full Weight Bearing Gait Training Does the Patient Walk?: Yes Distance (FIM): 3=150 ft Distance: 150' Walk 10 feet (QC): 5 Walk 50 ft with 2 Turns(QC): 5 Walk 150 ft (QC): 5 Gait Level of Assist: 5 Gait Persons Needed: 1 Gait Assistive Device: FWW Pt walks with slow but steady gait, no LOB. Pt still struggles with some DF but doesn't drag toes during ambulation. Wheelchair Training Does the Pt Use a Wheelchair?: No Exercises Seated Therapy Exercises: Ankle pumps, Long arc quads, Hip flexion, Kicking activity Seated Reps: 10 NuStep Minutes: 10 NuStep Workload: 3 Treatments Pt transfers from EOB to standing using FWW at [facility]. Pt uses restroom then ambulates in hallway using FWW at SBA. Pt uses NuStep and Seated Ex in chair. OT arrives at this time for tx. Pt has all needs met at end of tx. Assessment Current Status: Good Progress Pt continues to make improvement with safety and independence of transfers and ambulation but still struggles with DF. PT Short Term Goals Short Term Goals Time Frame: Dec 31, 2017 Transfers (B,C,W/C) (FIM): 4 Gait (FIM): 3 Distance (FIM): 3=150 ft Gait Level of Assist: 3 Gait Assistive Device: FWW Wheelchair Distance: 50'x2 Stairs (FIM): 1 # of Steps: 1 Stairs Level of Assist: 3 PT Collision Mechanic Goals [facility] Goals PT [facility] Goals Time Frame: Jan 21, 2018 Transfers (B,C,W/C) (FIM): 5 Sit to Lying (QC): 5 Lying-Sitting on Side/Bed(QC): 5 Sit to Stand (QC): 5 Rollin Roll Left to Right (QC): 5 Chair/Eyn-lh-Oefgm Xfer(QC): 5 Car Transfer (QC): 5 Does the Patient Walk: Yes Gait (FIM): 5 Gait distance (FIM): 3=150 ft Distance: 150ft Walk 10 feet (QC): 5 Walk 10ft-Uneven Surface(QC): 5 Walk 50ft with 2 Turns (QC): 5 Walk 150 ft (QC): 5 Gait Level of Assist: 5 Gait Assistive Device: FWW Does the Pt use WC or Scooter?: No Picking up an Object (QC): 5 PT Plan Problem List Problem List: Activity Tolerance, Functional Strength Treatment/Plan Treatment Plan: Continue Plan of Care Treatment Plan: Bed Mobility, Concurrent Therapy, Functional Activity Wen, Functional Strength, Group Therapy, Gait, Safety, Therapeutic Exercise, Transfers Treatment Duration: Jan 21, 2018 Frequency: At least 5 of 7 days/Wk (IRF) Estimated Hrs Per Day: 1.5 hours per day Patient and/or Family Agrees t: Yes Safety Risks/Education Patient Education: Gait Training, Correct Positioning, Safety Issues Teaching Recipient: Patient Teaching Methods: Discussion Response to Teaching: Verbalize Understanding Time/GCodes Time In: 1300 Time Out: 1330 Total Billed Treatment Time: 30 Total Billed Treatment 1, EX (15m) & GT (15m) CHRISTIANO WILSON PTA Dec 27, 2017 14:10
--- NOTE | 2017-12-27 15:04 | Occupational Ther Daily Note ---
OT Current Status-Daily Note Subjective Pt seen in gym, up in chair, agreeable to OT. No pain mentioned. Appearance Alert, cooperative Mental Status/Objective Functional [place] Measure 0=Not Assessed/NA 4=Minimal Assistance 1=Total Assistance 5=Supervision or Setup 2=Maximal Assistance 6=Modified [place] 3=Moderate Assistance 7=Complete [place] ADL-Treatment Functional [place] Measure 0=Not Assessed/NA 4=Minimal Assistance 1=Total Assistance 5=Supervision or Setup 2=Maximal Assistance 6=Modified [place] 3=Moderate Assistance 7=Complete IndependenceIRFPAI Quality Coding Scale 6 Independent with activity with or without an assistive device 5 Patient requires set up or clean up by helper. Patient completes activity by themselves 4 Supervision or touching assist (CGA). [place] provide cues , steadying assist 3 The helper provides less than half the effort to complete the activity 2 The helper provides more than half the effort to complete the activity 1 Dependent. The helper does all the effort to complete an activity 7 Patient refused to complete or attempt activity 9 The patient did not perform the activity before the current illness or injury 88 Not attempted due to Medical conditions or safety concerns Other Treatment Pt walked with SBA, FWW to chair with arms and got in chair without help. She did 15 minutes bilat UE exercise with arm bike set at 25W resistance (increased time), with no recovery breaks. During exercise, she talked about anticipating discharge to home tomorrow. OT shared recommendation to still have SBA when walking to and from areas due to periodic fatigue and mild foot drop. Pt verbalized understanding and agreement. Pt walked back to room with SBA, FWW and no LOB (200 ft) and got into bed without help. Pt left up in bed, call light present, all needs met. Education OT Patient Education: Progress toward Goal/Update tx plan, Purpose of tx/ functional activities, Transfer techniques Teaching Recipient: Patient Teaching Methods: Discussion Response to Teaching: Verbalize Understanding OT Short Term Goals Short Term Goals Time Frame: Dec 24, 2017 Grooming(FIM): 5 Bathing(FIM): 4 Upper Body Dressing(FIM): 5 Lower Body Dressing(FIM): 3 Transfers (B,C,W/C) (FIM): 4 Toilet/Commode Transfer(FIM): 4 Additional Short Term Goals: 2-Verbalize Understanding, 3-ImproveStrength/Wen 1=Demonstrate adherence to instructed precautions during ADL tasks. 2=Patient will verbalize/demonstrate understanding of assistive devices/ modifications for ADL. 3=Patient will improve strength/tolerance for activity to enable patient to perform ADL's. OT Supervisor Title Goals Supervisor Title Goals Time Frame: Jan 07, 2018 Eating (FIM): 6 Eating (QC): 6 Groomin Oral Hygiene (QC): 6 Bathing(FIM): 5 Shower/Bathe Self (QC): 4 Upper Body Dressing(FIM): 5 Upper Body Dressing (QC): 5 Lower Body Dressing(FIM): 5 Lower Body Dressing (QC): 5 On/Off Footwear (QC): 5 Toileting(FIM): 5 Toileting Hygiene (QC): 5 Toilet/Commode Transfer(FIM): 5 Toilet/Commode Transfer (QC): 5 Shower Transfer(FIM): 5 Additional Goals: 1-Demonstrate ADL Tasks, 2-Verbalize Understanding, 3- ImproveStrength/Wen 1=Demonstrate adherence to instructed precautions during ADL tasks. 2=Patient will verbalize/demonstrate understanding of assistive devices/ modifications for ADL. 3=Patient will improve strength/tolerance for activity to enable patient to perform ADL's. OT Education/Plan Problem List/Assessment Pt to benefit from skilled OT intervention for ADL training, transfers, strengthening, adaptive equipment training as needed, and home safety education to increase level of independence and allow safe discharge plan. Discharge Recommendations Plan/Recommendations: Continue POC Treatment Plan/Plan of Care Patient would benefit from OT for education, treatment and training to promote independence in ADL's, mobility, safety and/or upper extremity function for ADL' s. Plan of Care: ADL Retraining, Functional Mobility, Group Exercise/Act as Ind, UE Funct Exercise/Act Treatment Duration: Jan 07, 2018 Frequency: At least 5 of 7 days/Wk (IRF) Estimated Hrs Per Day: 1.5 hours per day Agreement: Yes Rehab Potential: Fair Time/GCodes Start Time: 13:30 Stop Time: 14:00 Total Time Billed (hr/min): 30 Billed Treatment Time visit, 30 minutes exercise RAQUEL STEVENS OT Dec 27, 2017 15:04
[2017-12-27] MEDS: ALPRAZolam 0.25 MG (XANAX) TAB PO PRN (15:38)
[2017-12-27 18:15] VITALS: BP 103/70
[2017-12-27] MEDS: HYDROcodone/APAP 7.5 MG/325 MG (LORTAB, LORCET PLUS) TABLET PO PRN (21:08)
[2017-12-27] MEDS: MIRTAZAPINE 15 MG (REMERON) TAB PO SCH (21:08)
[2017-12-27] MEDS: POLYETHYLENE GLYCOL 17 GM (MIRALAX) PACK PO SCH (21:08)
[2017-12-28 05:35] VITALS: BP 117/78
[2017-12-28] MEDS: DEXAMETHASONE 4 MG TAB (DECADRON) PO SCH (07:35)
[2017-12-28] MEDS: MULTIVIT W/MINERALS TAB (THERAGRAN M) PO SCH (07:35)
[2017-12-28] MEDS: LOSARTAN 50 MG (COZAAR) TAB PO SCH (09:01)
[2017-12-28] MEDS: GABAPENTIN 100 MG (NEURONTIN) CAP PO SCH (09:01)
[2017-12-28] MEDS: meTOprolol TARTRATE 25 MG (LOPRESSOR) TABLET PO SCH (09:01)
--- NOTE | 2017-12-28 10:15 | Therapy Team Discharge Summary ---
Therapy Discharge Summary Discharge Recommendations Date of Discharge Physical Therapy Patient came to rehab with lung cancer with mets to brain. Upon evaluation patient performed bed mobility and transfers with max assist, ambulated 3' with a rolling walker with max assist. Patient has been performing bed mobility and transfer training, balance and endurance training, functional strengthening, stair training, gait training, and education. 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 Now, patient performs bed mobility and transfers with mod I, ambulates 225' with a rolling walker with SBA (including 50' with at least 2 turns of 90 degrees and 10' over an uneven surface), performs a car transfer with mod I, and can go up and down 4 steps using 2 handrails with SBA. Patient is being discharged from this facility today and will be discharged from PT at this time. 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 PT 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 Time Frame: Jan 21, 2018 Transfers (B,C,W/C) (FIM): 5 Roll Left to Right (QC): 5 Sit to Lying (QC): 5 Lying-Sitting on Side/Bed(QC): 5 Sit to Stand (QC): 5 Chair/Isj-yq-Jfiui Xfer(QC): 5 Car Transfer (QC): 5 Does the Patient Walk: Yes Gait (FIM): 5 Gait distance (FIM): 3=150 ft Distance: 150ft Walk 10 feet (QC): 5 Walk 10ft-Uneven Surface(QC): 5 Walk 50ft with 2 Turns (QC): 5 Walk 150 ft (QC): 5 Gait Level of Assist: 5 Gait Assistive Device: FWW Does the Pt use WC or Scooter?: No Picking up an Object (QC): 5 OT 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 [employer] Operator Goals Time Frame: Jan 07, 2018 Eating (FIM): 6 Eating (QC): 6 Oral Hygiene (QC): 6 Grooming(FIM): 6 Bathing(FIM): 5 Shower/Bathe Self (QC): 4 Upper Body Dressing(FIM): 5 Upper Body Dressing (QC): 5 Lower Body Dressing(FIM): 5 Lower Body Dressing (QC): 5 On/Off Footwear (QC): 5 Toileting(FIM): 5 Toileting Hygiene (QC): 5 Toilet/Commode Transfer(FIM): 5 Toilet/Commode Transfer (QC): 5 Shower Transfer(FIM): 5 Additional Goals: 1-Demonstrate ADL Tasks, 2-Verbalize Understanding, 3- ImproveStrength/Wen 1=Demonstrate adherence to instructed precautions during ADL tasks. 2=Patient will verbalize/demonstrate understanding of assistive devices/ modifications for ADL. 3=Patient will improve strength/tolerance for activity to enable patient to perform ADL's. BIBI GARCIA PT Dec 28, 2017 10:15
--- NOTE | 2017-12-28 10:16 | PM & R (SOAP) Progress Note ---
Subjective Time Seen by Provider: 10:10 Subjective/Events-last exam Patient was seen in her room this AM All set for discharge Discussed case with SW and RN Objective Exam Last Set of Vital Signs Vital Signs Date Time Temp Pulse Resp B/P (MAP) Pulse Ox O2 Delivery O2 Flow Rate FiO2 12/28/17 08:36 Room Air 12/28/17 05:35 97.8 73 18 117/78 (91) 98 Capillary Refill : I&O Intake and Output 12/28/17 00:00 Intake Total 1450 ml Balance 1450 ml Intake Oral 1450 ml # Voids 8 # Bowel Movements 1 General: Alert, Oriented X3, Cooperative, No Acute Distress HEENT: Atraumatic, PERRLA, EOMI, Mucous Memb Moist/[place] Neck: Supple, No JVD Lungs: Clear to Auscultation Heart: Regular Rate Abdomen: Normal Bowel Sounds, Soft, No Tenderness Extremities: No Edema Neuro: Other (generalized weakness ) Results Lab Microbiology 12/19/17 Blood Culture - Final, Complete No growth 12/19/17 Urine Culture - Final, Complete Enterococcus faecalis Yeast species Assessment/Plan Assessment Left Lung ca with mets to brain s/p RT for brain tumor and Chemo for Lung CA Enterococcus UTI with Leukocytosis and elevated Serum lactic acid improving with Antibiotics-completed course today HTN controlled Hyperglycemia due to steroids improved Mild hypokalemia replacement ordered Hyponatremia noted at OSH resolved Plan Discharge today to home with spouse and HHC F/U with PCP and Cancer Center See orders MURRAY PAINTER MD Dec 28, 2017 10:16
[2017-12-28] MEDS ORDERED: ALPR0.254 PO (10:27)
[2017-12-28] MEDS ORDERED: DEXA4TAB PO (10:27)
[2017-12-28] MEDS ORDERED: HYDR-34 PO (10:27)
[2017-12-28] MEDS: ALPRAZolam 0.25 MG (XANAX) TAB PO PRN (10:51)
[2017-12-28 11:00] VITALS: BP 117/78
--- NOTE | 2017-12-28 12:32 | Therapy Team Discharge Summary ---
Therapy Discharge Summary Discharge Recommendations Date of Discharge Therapy D/C Recommendations: Occupational Therapy Home Care Occupational Therapy Pt was seen for skilled OT to increase her independence in basic self care to allow her to safely return home and to decrease caregiver burden. On admission she needed min assist to eat, SBA for grooming, min assist upper body dressing, mod assist lower body dressing and was dependant for lower body dressing. By discharge she was modified independent with all basic ADLs, with SBA for the walking components of the ADLs, such as going to the closet to get her clothes. She used w/c, FWW, transfer tub bench, grab bars, tall toilet, hand held shower. Home health OT is recommended. See tx plan for goals met. DC OT. 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 Time Frame: Jan 21, 2018 Transfers (B,C,W/C) (FIM): 5 Roll Left to Right (QC): 5 Sit to Lying (QC): 5 Lying-Sitting on Side/Bed(QC): 5 Sit to Stand (QC): 5 Chair/Fvn-en-Pviii Xfer(QC): 5 Car Transfer (QC): 5 Does the Patient Walk: Yes Gait (FIM): 5 Gait distance (FIM): 3=150 ft Distance: 150ft Walk 10 feet (QC): 5 Walk 10ft-Uneven Surface(QC): 5 Walk 50ft with 2 Turns (QC): 5 Walk 150 ft (QC): 5 Gait Level of Assist: 5 Gait Assistive Device: FWW Does the Pt use WC or Scooter?: No Picking up an Object (QC): 5 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 Time Frame: Jan 07, 2018 Eating (FIM): 6 (met 3-13-18) Eating (QC): 6 (met 3-13-18) Oral Hygiene (QC): 6 (met 3-13-18) Grooming(FIM): 6 (met 3-13-18) Bathing(FIM): 5 (met 3-13-18) Shower/Bathe Self (QC): 4 (met 3-13-18) Upper Body Dressing(FIM): 5 (met 3-13-18) Upper Body Dressing (QC): 5 (met 12-27-17) Lower Body Dressing(FIM): 5 (met 12-27-17) Lower Body Dressing (QC): 5 (met 12-27-17) On/Off Footwear (QC): 5 (met 12-27-17) Toileting(FIM): 5 (met 12-27-17) Toileting Hygiene (QC): 5 (met 12-27-17) Toilet/Commode Transfer(FIM): 5 (met 12-27-17) Toilet/Commode Transfer (QC): 5 (met 12-27-17) Tub Transfer(FIM): 6 (met 12-27-17) Shower Transfer(FIM): 5 (met 12-27-17) Additional Goals: 1-Demonstrate ADL Tasks, 2-Verbalize Understanding, 3- ImproveStrength/Wen 1=Demonstrate adherence to instructed precautions during ADL tasks. 2=Patient will verbalize/demonstrate understanding of assistive devices/ modifications for ADL. 3=Patient will improve strength/tolerance for activity to enable patient to perform ADL's. RAQUEL STEVENS OT Dec 28, 2017 12:32
== END 2017-12-28 11:00 | disposition home health service (06) | DRG 71 ==
PROVIDERS: ADMIT Physical Medicine & Rehabilitation; ATTEND Physical Medicine & Rehabilitation
DX: G93.49 Other encephalopathy (principal); C34.92 Malignant neoplasm of unspecified part of left bronchus or lung; C79.31 Secondary malignant neoplasm of brain; G13.0 Paraneoplastic neuromyopathy and neuropathy; I10 Essential (primary) hypertension; F32.9 Major depressive disorder, single episode, unspecified; R73.9 Hyperglycemia, unspecified; N39.0 Urinary tract infection, site not specified; E87.6 Hypokalemia; B95.2 Enterococcus as the cause of diseases classified elsewhere; Z87.891 Personal history of nicotine dependence; T38.0X5A Adverse effect of glucocorticoids and synthetic analogues, initial encounter
CPT/HCPCS: 36415; 71046; 80048; 80053; 80202; 81000; 83605; 83880; 85007; 85025; 85027; 87040; 87077; 87088; 87186

== ENCOUNTER 2017-12-20 01:23 | Inpatient (IN) | payer BC ==
[~2017-12-20] VITALS: Ht 157.5 cm; Wt 59.1 kg
[2017-12-20] VITALS (13 sets, daily range): BP systolic 118–165; BP diastolic 64–98
[~2017-12-20 01:23] MED LIST changes: +ALPR0.254 PO; +CLOP75TA28 PO; +DOXE50CA3 PO; +FOLI-74 PO; +IBUP-30 PO; +LOSA50TA36 PO; +NICO-533 TD; +NICO4GUM31 BC
[2017-12-20] MEDS ORDERED: ONDANSETRON 4 MG (ZOFRAN) ORAL DISSOLVE TAB PO PRN (02:15)
[2017-12-20] MEDS ORDERED: IBUPROFEN 800 MG (MOTRIN) TAB PO PRN (02:15)
[2017-12-20] MEDS ORDERED: ALPRAZolam 0.25 MG (XANAX) TAB PO PRN (02:15)
[2017-12-20] MEDS ORDERED: LACTATED RINGERS 1,000 ML IV SCH (02:15)
[2017-12-20] MEDS ORDERED: HYDROcodone/APAP 7.5 MG/325 MG (LORTAB, LORCET PLUS) TABLET PO PRN (02:15)
[2017-12-20] MEDS ORDERED: CATHETER FLUSH 10 ML SYR IV PRN (02:15)
[2017-12-20 03:28] LABS: BASOPHILS # (AUTO) 0.5 10^3/uL (0.0-0.1); BASOPHILS % (AUTO) 2 % (0-10); EOSINOPHILS % (AUTO) 0 % (0-10); HEMATOCRIT 27 % (35-52); HEMOGLOBIN 9.3 G/DL (11.5-16.0); MEAN CORPUSCULAR HEMOGLOBIN 32 PG (25-34); MEAN CORPUSCULAR HGB CONC 34 G/DL (32-36); MEAN CORPUSCULAR VOLUME 94 FL (80-99); MEAN PLATELET VOLUME 10.5 FL (7.4-10.4); MONOCYTES # (AUTO) 1.4 X 10^3 (0.0-1.0); MONOCYTES % (AUTO) 4 % (0-12); PLATELET COUNT 177 10^3/uL (130-400); RED BLOOD COUNT 2.91 10^6/uL (4.35-5.85); RED CELL DISTRIBUTION WIDTH 12.4 % (10.0-14.5)
[2017-12-20] MEDS ORDERED: VANCOMYCIN 1000 MG/VIAL ONE (03:37)
[2017-12-20] MEDS ORDERED: NS (IVPB) 250 ML ONE (03:37)
[2017-12-20] MEDS ORDERED: NS IV PRN (03:45)
[2017-12-20] MEDS ORDERED: VANCOMYCIN INJECTION 1,000 MG in NS (IVPB) 250 ML IV ONE (03:45)
[2017-12-20 03:46] LABS: BUN/CREATININE RATIO 36; CALCIUM 8.5 MG/DL (8.5-10.1); CARBON DIOXIDE 19 MMOL/L (21-32); CHLORIDE 108 MMOL/L (98-107); CREATININE SERUM 0.59 MG/DL (0.60-1.30); GFR ESTIMATED > 60; GLUCOSE 165 MG/DL (70-105); MAGNESIUM 1.9 MG/DL (1.8-2.4); PHOSPHORUS 3.3 MG/DL (2.3-4.7); POTASSIUM 3.6 MMOL/L (3.6-5.0); SODIUM 141 MMOL/L (135-145)
[2017-12-20 03:57] LABS: LYMPHOCYTES # (AUTO) 3.7 X 10^3 (1.0-4.0); LYMPHOCYTES % (AUTO) 11 % (12-44); NEUTROPHILS # (AUTO) 29.1 X 10^3 (1.8-7.8); NEUTROPHILS % (AUTO) 84 % (42-75)
[2017-12-20 03:58] LABS: WHITE BLOOD COUNT 34.7 10^3/uL (4.3-11.0)
--- NOTE | 2017-12-20 04:50 | Pulmonary Consultation ---
History of Present Illness History of Present Illness Date of Consultation 12/20/17 04:45 Time Seen by Provider: 04:45 Date of Admission History of Present Illness 62yo with hx of active lung cancer stage 4 with mets to the brain transferred to ICU from rehab unit secondary to suspected sepsis. PT had been undergoing chemoradiation that left her very weak. She was transferred to our rehab unit to help improve her tolerance to daily activities. Pt is requestsing to go home on hospice. I am consulted for pulmonary/ICU management. Allergies and Home Medications Allergies Coded Allergies: Penicillins (Verified Allergy, Unknown, 09/02/15) Sulfa (Sulfonamide Antibiotics) (Verified Allergy, Unknown, 09/02/15) clindamycin (Verified Allergy, Unknown, 09/02/15) Home Medications Alprazolam 0.25 Mg Tablet, 0.25 MG PO EVERY 6-8 HOURS PRN for ANXIETY, (Reported ) Clopidogrel Bisulfate 75 Mg Tablet, 75 MG PO DAILY, (Reported) Doxepin HCl 50 Mg Capsule, 50 MG PO DAILY, (Reported) Folic Acid/Mv,Fe,Other Min 1 Each Tablet, 1 TAB PO DAILY, (Reported) Ibuprofen 200 Mg Tablet, 800 MG PO Q4H PRN for PAIN-MILD, (Reported) Losartan Potassium 50 Mg Tablet, 50 MG PO DAILY, (Reported) Nicotine 1 Each Patch.dysq, TD UD PRN for SMOKING CESSATION, (Reported) Nicotine Polacrilex 4 Mg Gum, 4 MG BC Q4H PRN for SMOKING CESSATION, (Reported) Past Pqwnkog-Sxikrt-Kfsgyn Hx Patient Social History Alcohol Use: Denies Use Recreational Drug Use: No Type Used: Cigarettes Former Smoker, Quit: Nov 28, 2017 Recent Foreign Travel: No Contact w/Someone Who Travel: No Recent Infectious Disease Expo: No Recent Hopitalizations: Yes Seasonal Allergies Seasonal Allergies: Yes Surgeries History of Surgeries: Yes Surgeries: Appendectomy Respiratory History of Respiratory Disorde: Yes Respiratory Disorders: Pneumonia Cardiovascular History of Cardiac Disorders: No Neurological History of Neurological Disord: No Reproductive System Hx Reproductive Disorders: No Sexually Transmitted Disease: No HIV/AIDS: No Genitourinary History of Genitourinary Disor: No Gastrointestinal History of Gastrointestinal Di: No Musculoskeletal History of Musculoskeletal Dis: No Endocrine History of Endocrine Disorders: No HEENT History of HEENT Disorders: No Cancer History of Cancer: Yes Cancer: Brain, Lung Did You Recieve Any Treatments: Yes Type of Tx Receive: Chemotherapy, Radiation Psychosocial History of Psychiatric Problem: No Behavioral Health Disorders: Anxiety, Depression Integumentary History of Skin or Integumenta: No Blood Transfusions History of Blood Disorders: No Exam Exam Vital Signs Date Time Temp Pulse Resp B/P (MAP) Pulse Ox O2 Delivery O2 Flow Rate FiO2 12/20/17 04:33 98.2 12/20/17 04:00 97 Room Air 12/20/17 03:00 80 23 138/90 (106) 97 Room Air 12/20/17 02:45 85 25 142/92 (109) 96 Room Air 12/20/17 02:39 Room Air 12/20/17 02:30 88 22 151/89 (109) 97 Room Air 12/20/17 02:15 79 23 132/89 (103) 98 Room Air 12/20/17 02:00 80 23 140/89 (106) 98 Room Air 12/20/17 01:45 85 26 153/90 (111) 98 Room Air 12/20/17 01:32 80 12/20/17 01:27 98.4 86 11 118/64 (82) 97 Room Air Capillary Refill: Less Than 3 Seconds Results Lab Laboratory Tests 12/20/17 03:10 Assessment/Plan Assessment/Plan 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 I will transfer pt to 4th floor and consult hospice. 255 PERRY SAMUEL DO Dec 20, 2017 04:50
[2017-12-20] MEDS ORDERED: morphine INJ 4 MG/ML 1 ML (VIAL/SYRINGE) IVP PRN (05:00)
[2017-12-20] MEDS ORDERED: morphine INJ 4 MG/ML 1 ML (VIAL/SYRINGE) ONE (05:25)
[2017-12-20] MEDS ORDERED: ALPRAZolam 0.5 MG (XANAX) TAB ONE (05:25)
[2017-12-20] MEDS ORDERED: ALPRAZolam 0.25 MG (XANAX) TAB PO ONE (05:30)
[2017-12-20] MEDS ORDERED: ALPRAZolam 0.5 MG (XANAX) TAB PO ONE (05:31)
[2017-12-20] MEDS ORDERED: POTASSIUM CL 10MEQ/50ML IVPB 50 ML IV SCH (06:00)
[2017-12-20] MEDS ORDERED: MAGNESIUM 1 GM/100 ML IVPB 100 ML IV SCH (06:00)
[2017-12-20] MEDS ORDERED: NS IV 1000 ML 1,000 ML IV SCH (06:00)
[2017-12-20] MEDS ORDERED: KCL 20 MEQ TAB (K-DUR) PO SCH (06:00)
[2017-12-20] MEDS ORDERED: DEXAMETHASONE 4 MG TAB (DECADRON) PO SCH (06:00)
[2017-12-20] MEDS ORDERED: MULTIVIT W/MINERALS TAB (THERAGRAN M) PO SCH (07:00)
[2017-12-20] MEDS ORDERED: INFLUENZA TRIvalent 2017-2018 0.5 ML/45 MCG SYR IM ONE (07:15)
--- NOTE | 2017-12-20 07:22 | History & Physicial ---
History of Present Illness History of Present Illness Reason for visit/HPI Patient in acute rehabilitation. Patient has metastatic cancer of the brain from lungs. Patient's white blood cell count elevated. Patient hypotensive. Patient serum lactic acid elevated. Patient transferred to intensive care unit. Patient on next increased to White blood cell count them on Decadron. Patient this morning thinking of hospice but on second thought thinking of DO NOT RESUSCITATE and DO NOT INTUBATE. Patient to speak to hospice. Spoke to patient and Date of Admission Dec 20, 2017 at 01:23 Time Seen by Provider: 07:20 I consulted on this patient on 12/20/17 07:17 Attending Physician Maykel Melgar DO Admitting Physician No,Local Physician Consult Allergies and Home Medications Allergies Coded Allergies: Penicillins (Verified Allergy, Unknown, 09/02/15) Sulfa (Sulfonamide Antibiotics) (Verified Allergy, Unknown, 09/02/15) clindamycin (Verified Allergy, Unknown, 09/02/15) Home Medications Alprazolam 0.25 Mg Tablet, 0.25 MG PO EVERY 6-8 HOURS PRN for ANXIETY, (Reported ) Clopidogrel Bisulfate 75 Mg Tablet, 75 MG PO DAILY, (Reported) Doxepin HCl 50 Mg Capsule, 50 MG PO DAILY, (Reported) Folic Acid/Mv,Fe,Other Min 1 Each Tablet, 1 TAB PO DAILY, (Reported) Ibuprofen 200 Mg Tablet, 800 MG PO Q4H PRN for PAIN-MILD, (Reported) Losartan Potassium 50 Mg Tablet, 50 MG PO DAILY, (Reported) Nicotine 1 Each Patch.dysq, TD UD PRN for SMOKING CESSATION, (Reported) Nicotine Polacrilex 4 Mg Gum, 4 MG BC Q4H PRN for SMOKING CESSATION, (Reported) Patient Home Medication List Home Medication List Reviewed: Yes Past Brwhakx-Asrazn-Xozzap Hx Patient Social History Marrital Status: Employed/Student: unemployed Alcohol Use: Denies Use Recreational Drug Use: No Former Smoker, Quit: Nov 28, 2017 Type Used: Cigarettes Physical Abuse Screen: No Sexual Abuse: No Recent Foreign Travel: No Contact w/other who traveled: No Recent Hopitalizations: Yes Recent Infectious Disease Expo: No Seasonal Allergies Seasonal Allergies: Yes Surgeries Yes Appendectomy Respiratory Yes Cardiovascular No Neurological No Reproductive System Hx Reproductive Disorders: No Sexually Transmitted Disease: No HIV/AIDS: No Genitourinary No Gastrointestinal No Musculoskeletal No Endocrine History of Endocrine Disorders: No HEENT History of HEENT Disorders: No Cancer Yes Brain, Lung Did You Recieve Any Treatments: Yes Type of Treatment: Chemotherapy, Radiation Psychosocial History of Psychiatric Problem: No Behavioral Health Disorders: Anxiety, Depression Integumentary History of Skin or Integumenta: No Blood Transfusions History of Blood Disorders: No Constitutional: malaise, weakness EENTM: no symptoms reported Respiratory: other (Lung cancer) Cardiovascular: no symptoms reported Gastrointestinal: no symptoms reported Genitourinary: no symptoms reported Physical Exam Vital Signs Vital Signs - First Documented 12/20/17 01:27 Temp 98.4 Pulse 86 Resp 11 B/P (MAP) 118/64 (82) Pulse Ox 97 O2 Delivery Room Air Capillary Refill : Less Than 3 Seconds General Appearance: No Apparent Distress, WD/WN Eyes: Bilateral Eye Normal Inspection HEENT: Normal ENT Inspection Neck: Full Range of Motion Respiratory: Chest Non Tender, No Accessory Muscle Use, No Respiratory Distress Cardiovascular: Regular Rate, Rhythm, No Murmur Gastrointestinal: Non Tender, Soft Assessment/Plan Assessment and Plan Small cell lung cancer with metastasis to the brain. Leukocytosis from Rudolph Julien. Weakness and debility. Metabolic lactic acidosis. Patient thinking about hospice and wants to speak to them. Patient wants a DO NOT RESUSCITATE and DO NOT INTUBATE Problems: Admission Diagnosis Admission Status: Observation Clinical Quality Measures DVT/VTE Risk/Contraindication: Risk Factor Score Per Nursin RFS Level Per Nursing on Admit: 3=High MAYKEL MELGAR DO Dec 20, 2017 07:22
--- NOTE | 2017-12-20 07:46 | Diagnostic Imaging Report ---
INDICATION: Sepsis. Comparison made with prior examination of 12/19/2017. FINDINGS: The heart size is normal. There is some prominence of main pulmonary artery. There is no pleural effusion or pneumothorax. Mediastinum is unremarkable. IMPRESSION: Prominence of main pulmonary artery. This nonspecific, however, may reflect pulmonary hypertension. Recommend clinical correlation. If warranted, followup with echocardiography. No other acute cardiopulmonary abnormality. Dictated by: Dictated on workstation # [id number]
[2017-12-20] MEDS ORDERED: GABAPENTIN 100 MG (NEURONTIN) CAP PO SCH (09:00)
[2017-12-20] MEDS ORDERED: LOSARTAN 50 MG (COZAAR) TAB PO SCH (09:00)
[2017-12-20] MEDS ORDERED: risperiDONE 0.25 MG (RisperDAL) TAB PO SCH (09:00)
[2017-12-20] MEDS ORDERED: NS IV SCH (09:00)
[2017-12-20] MEDS ORDERED: meTOprolol TARTRATE 25 MG (LOPRESSOR) TABLET PO SCH (09:00)
[2017-12-20] MEDS ORDERED: CEFEPIME IV SCH (09:00)
--- NOTE | 2017-12-20 09:30 | ST Dysphagia Evaluation ---
Speech Evaluation-General Medical Diagnosis Sepsis Therapy Diagnosis Therapy Diagnosis: Oropharyngeal Swallow WNL Precautions Precautions/Isolations: Fall Prevention, Standard Precautions Referral Referring Physician: Dr. Maykel Kessler Reason for Referral: Evaluation/Treatment Clinical Bedside Swallowing Evaluation Medical History Small cell lung cancer with mets to brain. Current History The patient was recently transferred from ARU to ICU following a spike in white blood cell count. Reviewed History: Yes Speech PLF/Current-Dysphagia Prior Level of Function The patient denied any prior challenges with swallowing or signs/symptoms of aspiration with any consistency she currently consumes. Subjective The patient was seated upright in chair upon entrance. The patient's is at bedside. The patient greeted the clinician and was agreeable to participation in the dysphagia evaluation. Per patient, she recently consumed a large breakfast of [employer] items ( biscuit, sausage) without any swallowing difficulties. Cognitive Status Patient Orientation: Person, Place, Time, Situation Oral Motor Skills Dentition: Natural Current Food Consistancy: Regular, Thin Liquids Ability to Follow Directions: Excellent Oral Expression Ability: No Impairment Voice Voice Phonatory-Based Quality: Glottal Najera Voice Pitch: Normal Voice Loudness: Normal Face Facial Symmetry: Symmetrical Oral-Facial Assessment Oral-Facial Dentition: Normal Labial Seal Description: Normal Smile: Normal Puff Cheeks: Normal Lingual Protrusion: Normal Lingual ROM: Normal Lingual Strength: Normal Pharynx Velopharyngeal Move.: Normal Volitional Dry Swallow: Yes Voluntary Cough: Yes Can Clear Throat Volitionally: Yes Productive Cough: Yes Productive Throat Clear: Yes Dysphagia Evaluation Consistencies Presented: Regular, Thin Liquid, Pureed No signs/symptoms of aspiration were demonstrated with multiple consistencies tested (solid, puree, and thin liquid). - No pharyngeal impairments were noted with any consistency tested throughout the evaluation. - No signs/symptoms of aspiration were demonstrated with multiple consistencies tested throughout the swallowing evaluation (solid, puree, thin liquid). The patient's vocal quality remained clear and her SpO2% remained stable at 98%. Dietary Recommendations: Regular Liquid Recommendations: Thin Swallowing Precautions: Small Bites and Sips, Sitting Upright 90 Degrees Dysphagia Evaluation Summary The patient demonstrated an oropharyngeal swallow within normal limits. Speech-Plan Treatment Plan Speech Therapy Treatment Plan: Discontinue ST Evaluation, only. Frequency: 1 time per week Estimated Hrs Per Day: Other Rehab Potential: Good Safety Risks/Education Teaching Recipient: Patient Teaching Methods: Discussion Response to Teaching: Verbalize Understanding Education Topics Provided: Results, Recommendations, Plan of Care, Swallowing Strategies Time Speech Therapy Time In: 09:15 Speech Therapy Time Out: 09:30 Total Billed Time: 15 Billed Treatment Time 1, MONE CAMARILLO Dec 20, 2017 09:30
--- NOTE | 2017-12-20 09:36 | Physical Therapy Evaluation ---
PT Evaluation-General Medical Diagnosis Admission Date Dec 20, 2017 at 01:23 Medical Diagnosis: sepsis Onset Date: Dec 20, 2017 Therapy Diagnosis Therapy Diagnosis: generalized weakness/debility Height/Weight Height (Feet): 5 Height (Inches): 2.00 Weight (Pounds): 130 Weight (Ounces): 4.6 Precautions Precautions/Isolations: Fall Prevention, Standard Precautions Weight Bear Status Right Lower Extremity: Right Full Weight Bearing Left Lower Extremity: Left Full Weight Bearing Referral Physician: [place] Reason for Referral: Evaluation/Treatment Medical History Additional Medical History metastatic lung cancer to brain Current History transfer from [facility] Reviewed History: Yes Social History Home: Single Level Current Living Status: Spouse Prior/Core FIM Prior Level of Function Functional [place] Measure 0=Not Assessed/NA 4=Minimal Assistance 1=Total Assistance 5=Supervision or Setup 2=Maximal Assistance 6=Modified [place] 3=Moderate Assistance 7=Complete [place] Bed Mobility: 3 Transfers (B,C,W/C) (FIM): 3 Gait: 3 PT Evaluation-Current Subjective Patient reports she is very anxious and would like to return to rehab to increase her strength. Pain Numeric Pain Scale: 0-No Pain Location: No Pain Reported Objective Patient Orientation: Normal For Age Problem Solving: Fair Attachments: IV ROM/Strength ROM Lower Extremities bilateral LE WNL Strength Lower Extremities right knee flexion/extension 3-/5; hip flexion 3-/5; DF/PF 1/5 left knee flexion/extension 3-/5; hip flexion 3-/5; DF/PF 1/5 Integumentary/Posture Integumentary refer to nursing notes Bowel Incontinence: No Bladder Incontinence: No Posture WFL Neuromuscular (Tone, Coordination, Reflexes) diminished coordination due to weakness Sensory Vision: Functional Hearing: Functional Sensation Right Lower Extremit: Impaired Sensation Left Lower Extremity: Impaired Transfers Functional [place] Measure 0=Not Assessed/NA 4=Minimal Assistance 1=Total Assistance 5=Supervision or Setup 2=Maximal Assistance 6=Modified [place] 3=Moderate Assistance 7=Complete [place] Transfers (B, C, W/C) (FIM): 3 Scootin Rollin Supine to/from Sit: 3 Sit to/from Stand: 3 Gait Mode of Locomotion: Walk Anticipated Mode of Locomotion: Walk Gait (FIM): 2 Distance (FIM): 0=602-80 ft Distance: 125' Gait Level of Assist: 3 Gait Persons Needed: 1 Gait Assistive Device: FWW Comments/Gait Description slow, functional gait/noted drop foot bilaterally Balance Sitting Static: Normal Sitting Dynamic: Normal Standing Static: Fair Standing Dynamic: Fair Assessment/Needs 62 y.o. female, will benefit from skilled PT and to return to ARU for continued care to increase strength and functional mobility to safely return to home with spouse at maximum LOF. Rehab Potential: Guarded PT Usp Goals Professor Of Journalism Goals PT Usp Goals Time Frame: Jan 13, 2018 Transfers (B,C,W/C) (FIM): 5 Gait (FIM): 5 Gait distance (FIM): 3=150 ft Gait Level of Assist: 5 Gait Assistive Device: FWW PT Plan Problem List Problem List: Activity Tolerance, Functional Strength, Balance, Gait, Transfer Treatment/Plan Treatment Plan: Continue Plan of Care Treatment Plan: Bed Mobility, Education, Functional Activity Wen, Functional Strength, Gait, Safety, Therapeutic Exercise, Transfers Treatment Duration: Jan 13, 2018 Frequency: 6 times per week Estimated Hrs Per Day: .5 hour per day Patient and/or Family Agrees t: Yes Discharge Recommendations Therapy D/C Recommendations: Acute Rehab Time/GCodes Time In: 852 Time Out: 910 Total Billed Treatment Time: 18 [facility] HE[facility]NA CLIFTON PT Dec 20, 2017 09:36
--- NOTE | 2017-12-20 12:36 | CONSULTATION REPORT ---
DATE OF SERVICE: ATTENDING PHYSICIAN. Dr. Kessler - Dr. Montiel. SUMMARY: A 62-year-old white lady with metastatic CA of the lung to her brain with history of coma for which she had indwelling Palacios catheter. She has recovered from her coma and her and her wondering about discontinuing the Palacios. Patient had no trouble passing urine prior to that at home, so I went and removed the Palacios catheter and she has been voiding well. She was transferred to the ICU overnight because of apparently some white count elevation. She is doing well and is going to go back to the second floor today. IMPRESSION: Possible neurogenic bladder. PLAN: Since the patient is voiding well, we will just observe and see her on a p.r.n. basis. Job ID: [id number] DocumentID: [id number] Dictated Date: 12/20/2017 10:30:10 Loan Analyst Date: 12/20/2017 12:35:24 Dictated By: LUKE SMITH MD
[2017-12-20] MEDS ORDERED: HYDR-34 PO (13:19)
[2017-12-20] MEDS ORDERED: NORM2DIS3 IV (13:19)
[2017-12-20] MEDS ORDERED: METO-333 PO (13:19)
[2017-12-20] MEDS ORDERED: POLY17PO23 PO (13:19)
[2017-12-20] MEDS ORDERED: Multivitamins/Minerals Therap PO (13:19)
[2017-12-20] MEDS ORDERED: ONDA4TAB11 PO (13:19)
[2017-12-20] MEDS ORDERED: [UNRECOGNIZED DRUG - REMARK] XX (13:19)
[2017-12-20] MEDS ORDERED: GABA-486 PO (13:19)
[2017-12-20] MEDS ORDERED: MIRT15TA8 PO (13:19)
[2017-12-20] MEDS ORDERED: VANCOMYCIN INJECTION 1,000 MG in NS (IVPB) 250 ML IV SCH (15:00)
[2017-12-20] MEDS ORDERED: POLYETHYLENE GLYCOL 17 GM (MIRALAX) PACK PO SCH (21:00)
[2017-12-20] MEDS ORDERED: MIRTAZAPINE 15 MG (REMERON) TAB PO SCH (21:00)
--- NOTE | 2017-12-21 13:01 | Physician Query-Final Dx ---
VERONICA RAMIRES 12/21/17 1301: Final Diagnosis Give Final Diagnosis Please give Final Diagnosis HUA CHILD 12/22/17 0945: VERONICA RAMIRES Dec 21, 2017 13:01 HUA CHILD Dec 22, 2017 09:45
[2017-12-21] MEDS ORDERED: TROUGH ORDER-PHARMACY XX NR (14:00)
--- NOTE | 2017-12-22 06:54 | Discharge Summary ---
Diagnosis/Chief Complaint Date of Admission Dec 20, 2017 at 01:23 Date of Discharge Dec 20, 2017 at 10:40 Discharge Date: Dec 20, 2017 Discharge Time: 06:50 Discharge Diagnosis Leukocytosis from gravix and Decadron. Elevated lactic acid. Metabolic lactic acidosis. Anemia. Lung cancer. Metastasis to brain. Small cell lung cancer. Weakness. Patient does not want DO NOT RESUSCITATE and DO NOT INTUBATE and CPR Reason Hospital Visit Patient in acute rehabilitation. Patient has metastatic cancer of the brain from lungs. Patient's white blood cell count elevated. Patient hypotensive. Patient serum lactic acid elevated. Patient transferred to intensive care unit. Patient on next increased to White blood cell count them on Decadron. Patient this morning thinking of hospice but on second thought thinking of DO NOT RESUSCITATE and DO NOT INTUBATE. Patient to speak to hospice. Spoke to patient and Discharge Summary Consultations Pulmonology Discharge Physical Examination Allergies: Coded Allergies: Penicillins (Verified Allergy, Unknown, 09/02/15) Sulfa (Sulfonamide Antibiotics) (Verified Allergy, Unknown, 09/02/15) clindamycin (Verified Allergy, Unknown, 09/02/15) Vitals & I&Os Vital Signs Date Time Temp Pulse Resp B/P (MAP) Pulse Ox O2 Delivery O2 Flow Rate FiO2 12/20/17 08:00 77 19 144/80 (101) 98 Room Air 12/20/17 08:00 97.2 Hospital Course Labs (last 24 hrs) Laboratory Tests 12/20/17 03:10: White Blood Count 34.7*H, Red Blood Count 2.91L, Hemoglobin 9.3L, Hematocrit 27L , Mean Corpuscular Volume 94, Mean Corpuscular Hemoglobin 32, Mean Corpuscular Hemoglobin Concent 34, Red Cell Distribution Width 12.4, Platelet Count 177, Mean Platelet Volume 10.5H, Neutrophils (%) (Auto) 84H, Lymphocytes (%) (Auto) 11L, Monocytes (%) (Auto) 4, Eosinophils (%) (Auto) 0, Basophils (%) (Auto) 2, Neutrophils # (Auto) 29.1H, Lymphocytes # (Auto) 3.7, Monocytes # (Auto) 1.4H, Eosinophils # (Auto) 0.0, Basophils # (Auto) 0.5H, Sodium Level 141, Potassium Level 3.6, Chloride Level 108H, Carbon Dioxide Level 19L, Anion Gap 14, Blood Urea Nitrogen 21H, Creatinine 0.59L, Estimat Glomerular Filtration Rate > 60, BUN/Creatinine Ratio 36, Glucose Level 165H, Lactic Acid Level 3.53*H, Calcium Level 8.5, Phosphorus Level 3.3, Magnesium Level 1.9 12/20/17 05:15: Lactic Acid Level 1.66 Microbiology 12/20/17 MRSA Screen - Final, Complete MRSA not isolated Laboratory Tests 12/20/17 03:10 Pending Labs Microbiology Date/Time Source Procedure Growth Status 12/20/17 01:30 Nasal MRSA Screen - Final MRSA not isolated Complete Laboratory Tests 12/20/17 03:10: White Blood Count 34.7, Red Blood Count 2.91, Hemoglobin 9.3, Hematocrit 27, Mean Corpuscular Volume 94, Mean Corpuscular Hemoglobin 32, Mean Corpuscular Hemoglobin Concent 34, Red Cell Distribution Width 12.4, Platelet Count 177, Mean Platelet Volume 10.5, Neutrophils (%) (Auto) 84, Lymphocytes (%) (Auto) 11 , Monocytes (%) (Auto) 4, Eosinophils (%) (Auto) 0, Basophils (%) (Auto) 2, Neutrophils # (Auto) 29.1, Lymphocytes # (Auto) 3.7, Monocytes # (Auto) 1.4, Eosinophils # (Auto) 0.0, Basophils # (Auto) 0.5, Sodium Level 141, Potassium Level 3.6, Chloride Level 108, Carbon Dioxide Level 19, Anion Gap 14, Blood Urea Nitrogen 21, Creatinine 0.59, Estimat Glomerular Filtration Rate > 60, BUN/ Creatinine Ratio 36, Glucose Level 165, Lactic Acid Level 3.53, Calcium Level 8.5, Phosphorus Level 3.3, Magnesium Level 1.9 12/20/17 05:15: Lactic Acid Level 1.66 Discussion & Recommendations Patient originally wanted hospice. Patient then wanted to go back to rehabilitation. Cancel hospice. Discharge Home Medications: Active Scripts Active [Trough Order] 1 Each 0 Each XX 1400 [Multivitamins/Minerals Therap] 1 Tablet 1 Ea PO DAILY@0700 Ondansetron Odt (Ondansetron) 4 Mg Tab.rapdis 4 Mg PO Q6H PRN 1 Days Polyethylene Glycol 3350 17 Gm Powd.pack 17 Gm PO HS 1 Days Normal Saline Flush (0.9 % Sodium Chloride) 2 Ml Syringe 0 Ml IV NEEDED PRN 1 Days Mirtazapine 15 Mg Tab.rapdis 15 Mg PO HS 1 Days Gabapentin 100 Mg Capsule 100 Mg PO TID 1 Days Lortab 7.5 Mg Tablet (Acetaminophen/Hydrocodone Bitart) 1 Ea Tablet 1 Ea PO Q4H PRN 1 Days Metoprolol Tartrate 25 Mg Tablet 25 Mg PO BID 1 Days Reported Nicotine Gum (Nicotine Polacrilex) 4 Mg Gum 4 Mg BC Q4H PRN Nicotine Patch (Nicotine) 1 Each Patch.dysq TD UD PRN Doxepin HCl 50 Mg Capsule 50 Mg PO DAILY Clopidogrel (Clopidogrel Bisulfate) 75 Mg Tablet 75 Mg PO DAILY One Daily For Women Tablet (Folic Acid/Mv,Fe,Other Min) 1 Each Tablet 1 Tab PO DAILY Losartan Potassium 50 Mg Tablet 50 Mg PO DAILY Advil (Ibuprofen) 200 Mg Tablet 800 Mg PO Q4H PRN Alprazolam 0.25 Mg Tablet 0.25 Mg PO EVERY 6-8 HOURS PRN Instructions to patient/family Please see electronic discharge instructions given to patient. Clinical Quality Measures DVT/VTE Risk/Contraindication: Risk Factor Score Per Nursin RFS Level Per Nursing on Admit: 3=High LUI MELGAR DO Dec 22, 2017 06:54
== END 2017-12-20 10:40 | DRG 815 ==
LOC: ICU 01:23
PROVIDERS: ADMIT Family Medicine; ATTEND Family Medicine
DX: D72.829 Elevated white blood cell count, unspecified (principal); T45.8X5A Adverse effect of other primarily systemic and hematological agents, initial encounter; T38.0X5A Adverse effect of glucocorticoids and synthetic analogues, initial encounter; E87.2 Acidosis; C34.90 Malignant neoplasm of unspecified part of unspecified bronchus or lung; C79.31 Secondary malignant neoplasm of brain; Z66 Do not resuscitate; F41.9 Anxiety disorder, unspecified; F32.9 Major depressive disorder, single episode, unspecified; R53.81 Other malaise; Z87.891 Personal history of nicotine dependence
CPT/HCPCS: 36415; 71045; 80048; 83605; 83735; 84100; 85025; 87081

== ENCOUNTER 2018-01-06 14:16 | Outpatient (RCR) | payer BC ==
[2018-01-05 15:23] LABS: BASOPHILS % (AUTO) 0 % (0-10); EOSINOPHILS % (AUTO) 0 % (0-10); HEMATOCRIT 29 % (35-52); HEMOGLOBIN 9.4 G/DL (11.5-16.0); LYMPHOCYTES # (AUTO) 1.7 X 10^3 (1.0-4.0); LYMPHOCYTES % (AUTO) 13 % (12-44); MEAN CORPUSCULAR HEMOGLOBIN 32 PG (25-34); MEAN CORPUSCULAR HGB CONC 33 G/DL (32-36); MEAN CORPUSCULAR VOLUME 98 FL (80-99); MEAN PLATELET VOLUME 9.7 FL (7.4-10.4); MONOCYTES # (AUTO) 0.5 X 10^3 (0.0-1.0); MONOCYTES % (AUTO) 4 % (0-12); NEUTROPHILS # (AUTO) 11.4 X 10^3 (1.8-7.8); NEUTROPHILS % (AUTO) 83 % (42-75); PLATELET COUNT 427 10^3/uL (130-400); RED BLOOD COUNT 2.94 10^6/uL (4.35-5.85); RED CELL DISTRIBUTION WIDTH 15.8 % (10.0-14.5); WHITE BLOOD COUNT 13.7 10^3/uL (4.3-11.0)
[2018-01-05 15:46] LABS: ALANINE AMINOTRANSFERASE 39 U/L (0-55); ALBUMIN 4.1 GM/DL (3.2-4.5); ALKALINE PHOSPHATASE 74 U/L (40-136); BILIRUBIN,TOTAL 0.3 MG/DL (0.1-1.0); BUN/CREATININE RATIO 35; CALCIUM 9.7 MG/DL (8.5-10.1); CARBON DIOXIDE 24 MMOL/L (21-32); CHLORIDE 105 MMOL/L (98-107); CREATININE SERUM 0.63 MG/DL (0.60-1.30); GFR ESTIMATED > 60; GLUCOSE 129 MG/DL (70-105); POTASSIUM 4.2 MMOL/L (3.6-5.0); SODIUM 138 MMOL/L (135-145); TOTAL PROTEIN 6.8 GM/DL (6.4-8.2)
[~2018-01-06] VITALS: Ht 157.5 cm; Wt 59.0 kg
[~2018-01-06 14:16] MED LIST changes: +CARBOPLATIN IV SCH; +D5W IV SCH; +DEXA4TAB PO; +ETOPOSIDE 150 MG in NORMAL SALINE (CANCER CENTER) 500 ML IV SCH; +ETOPOSIDE IV SCH; +GABA-486 PO; +HYDR-34 PO; +METO-333 PO; +MIRT15TA8 PO; +Multivitamins/Minerals Therap PO; +NORM2DIS3 IV; +NORMAL SALINE IV SCH; +NS IV 1000 ML (CANCER CTR) 1,000 ML IV SCH; +ONDA4TAB11 PO; +PALONOSETRON 0.25 MG, DEXAMETHASONE 10 MG/NS 50 ML IVPB IV PRN; +POLY17PO23 PO; +[UNRECOGNIZED DRUG - REMARK] XX
[2018-01-06] MEDS ORDERED: NS IV 500 ML (CANCER CENTER) 500 ML ONE (14:21)
== END 2018-04-05 | disposition home or self-care (01) ==
LOC: ONC 14:16
PROVIDERS: ATTEND Internal Medicine Hematology & Oncology
DX: Z51.11 Encounter for antineoplastic chemotherapy (principal); C34.32 Malignant neoplasm of lower lobe, left bronchus or lung; C79.31 Secondary malignant neoplasm of brain; Z87.891 Personal history of nicotine dependence; Z79.899 Other long term (current) drug therapy
CPT/HCPCS: 36415; 80053; 85025; 96375; 96413; 96417